=== PATIENT | male | born 1945 | race Hispanic/Latino ===

== ENCOUNTER 2017-10-04 20:34 | Inpatient (IN) | payer MEDICARE ==
[2017-10-04 22:47] LABS: Hematocrit 44.5 % (35.5-45.6); Mean Corpuscular HGB Conc 34 % (32-34); Mean Corpuscular Hemoglobin 31 pg (28-32); Mean Corpuscular Volume 93 fl (84-94); Platelet Count 291 K/mm3 (140-440); Red Blood Count 4.79 M/mm3 (3.65-5.03)
[2017-10-04 22:50] LABS: White Blood Count 22.5 K/mm3 (4.5-11.0)
[2017-10-04 23:00] LABS: Alanine Aminotransferase 19 units/L (7-56); Albumin 3.9 g/dL (3.9-5); Albumin/Globulin Ratio 1.4 %; Alkaline Phosphatase 91 units/L (35-129); Anion Gap 18 mmol/L; BUN/Creatinine Ratio 24; Blood Urea Nitrogen 19 mg/dL (9-20); Calcium 8.8 mg/dL (8.4-10.2); Carbon Dioxide 27 mmol/L (22-30); Chloride 96.7 mmol/L (98-107); Glucose 119 mg/dL (75-100); Lipase 46 units/L (13-60); Potassium 4.8 mmol/L (3.6-5.0); Sodium 137 mmol/L (137-145); Total Protein 6.7 g/dL (6.3-8.2)
[2017-10-04 23:17] LABS: Basophils % (Manual) 0 % (0.0-1.8); Blastocytes % (Manual) 0 %; Eosinophils % (Manual) 0 % (0.0-4.3)
[2017-10-04 23:18] LABS: Diff Status Complete; RBC Morphology Normal
--- NOTE | 2017-10-04 23:52 | XRay Report ---
FINAL REPORT PROCEDURE: Abdomen. TECHNIQUE: Portable AP supine view. HISTORY: Vomiting. COMPARISON: No prior studies are available for comparison. FINDINGS: There is gas within a few loops of small bowel in the left side of the abdomen. These bowel loops are not significantly dilated. There is also gas within the colon and rectum. The bowel gas pattern is nonspecific. The soft tissues are unremarkable. There is a left internal ureteral stent in place. There may be some faint calcifications projected through the midportion of the left kidney. This is better seen by CT scanning. The regional skeleton appears intact. IMPRESSION: Nonspecific bowel gas pattern. Question left renal calcifications.
[2017-10-05] MEDS ORDERED: HALDOL IM ONE (00:32)
--- NOTE | 2017-10-05 01:57 | Emergency Department Report ---
HPI - General Chief Complaint: Nausea/Vomiting/Diarrhea Time Seen by Provider: 10/04/17 21:57 - HPI HPI: This is a 72-year-old male presents to the emergency department from [facility] where he is currently a 1013 and being treated for behavioral disturbances. The patient has a history of dementia, GERD, gastric ulcers and kidney stones. The note written at [facility] shows that the patient has been having issues with vomiting all day. He appears to vomit after each meal but then still continues to attempt to eat. There has been some projectile emesis seen. I am unsure what medication was given to him for his nausea but states that medications have not been successful and the treatment. He was sent in for "assessment of condition projectile vomiting." It also appears that they have concern that the patient is unable to eat that he will have some increased weakness. There is a employee of [facility] here with the patient at bedside who states that she has been dealing with this patient and that he is currently at his baseline mental status since he has been at their facility. ED Past Medical Hx - Past Medical History Previous Medical History?: Yes Hx GERD: Yes Hx Kidney Stones: Yes Hx Dementia: Yes Additional medical history: gastric ulcers, and hx of bleeding - Surgical History Past Surgical History?: No - Social History Smoking Status: Never Smoker Substance Use Type: None ED Review of Systems ROS: Stated complaint: VOMITING Other details as noted in HPI Comment: Unobtainable due to pts medical conditions Physical Exam - Physical Exam Vital Signs: Vital Signs 10/04/17 21:56 Temperature 97.9 F Pulse Rate 95 H Respiratory 14 Rate Blood Pressure 132/55 O2 Sat by Pulse 98 Oximetry Physical Exam: GENERAL: The patient is well-developed well-nourished. HENT: Normocephalic. Atraumatic. Patient has moist mucous membranes. EYES: Extraocular motions are intact. Pupils equal reactive to light bilaterally. NECK: Supple. Trachea is midline. CHEST/LUNGS: Clear to auscultation. There is no respiratory distress noted. HEART/CARDIOVASCULAR: Regular. There is no tachycardia. There is no gallop rub or murmur. ABDOMEN: Abdomen is soft, nontender. Patient has normal bowel sounds. There is no abdominal distention. SKIN: Skin is warm and dry. NEURO: The patient is AAO 0. Sometimes he is sleeping but easily arousable, and other times he appears agitated and nonsensical. He has not easily redirectable or following any commands. MUSCULOSKELETAL: There is no tenderness or deformity. There is no evidence of acute injury. ED Course Vital Signs 10/04/17 21:56 Temperature 97.9 F Pulse Rate 95 H Respiratory 14 Rate Blood Pressure 132/55 O2 Sat by Pulse 98 Oximetry ED Medical Decision Making - Lab Data Result diagrams: 10/04/17 22:06 10/04/17 22:06 - Radiology Data Radiology results: report reviewed, image reviewed interpreted by me: Abdominal x-ray shows nonspecific nonobstructive bowel gas. Chest x-ray does not show any acute process. There are no pleural effusions, obvious pneumonia and there is no pneumothorax. PROCEDURE: CT CHEST W CON TECHNIQUE: Computerized axial tomography of the chest was performed during the IV injection of iodinated nonionic contrast. HISTORY: cough COMPARISON: No prior studies are available for comparison. TECHNICAL QUALITY: Satisfactory. FINDINGS: Heart and pericardium: Normal. Thoracic aorta: Thoracic aorta is normal in caliber. There is no aneurysm or dissection.. Pulmonary vasculature: Normal. Lymph nodes: No enlarged thoracic lymph nodes. Lungs: There are fibrotic changes versus pulmonary edema at the lung bases. There is no airspace consolidation.. Pleural space: There is no pleural effusion or pneumothorax.. Musculoskeletal structures: No significant abnormality. Upper abdominal structures: No significant abnormality. IMPRESSION: The heart size is normal. Thoracic aorta is normal in caliber. There is no aneurysm or dissection.. There are fibrotic changes versus pulmonary edema at the lung bases. There is no airspace consolidation.. There is no pleural effusion or pneumothorax.. Transcribed By: CO Dictated By: STEVE HARTMANN MD Electronically Authenticated By: STEVE HARTMANN MD Signed Date/Time: 10/04/17 0951 PROCEDURE: CT ABDOMEN PELVIS W CON TECHNIQUE: Computerized axial tomography of the abdomen and pelvis was performed after the IV injection of iodinated nonionic contrast. HISTORY: N/V COMPARISON: No prior studies are available for comparison. FINDINGS: Visualized lower thorax: No significant abnormality. Liver: There is mild fatty infiltration of the liver. There is no mass.. Spleen: Normal size and attenuation. Gallbladder and biliary system: There are gallstones. There is no specific evidence of cholecystitis or biliary ductal dilatation.. Pancreas: Normal. Adrenals: Normal. Kidneys: There is a left ureteral stent. There is no hydronephrosis or hydroureter. There are small cysts in the right kidney. There are no kidney stones visible. GI tract: There is moderate stool in the colon. There is diverticulosis but no diverticulitis. There is no colitis, obstruction or mass. The stomach and small bowel are unremarkable. The appendix is not seen.. Lymph nodes and mesentery: Normal. Vasculature: There is calcified plaque in the abdominal aorta.. Bladder: Normal. Reproductive organs: Normal. Peritoneum: There is no ascites, free air, abscess or adenopathy. Musculoskeletal structures: No significant abnormality. Other: None. IMPRESSION: There is mild fatty infiltration of the liver. There is no mass.. There are gallstones. There is no specific evidence of cholecystitis or biliary ductal dilatation.. There is a left ureteral stent. There is no hydronephrosis or hydroureter. There are small cysts in the right kidney. There are no kidney stones visible. There is moderate stool in the colon. There is diverticulosis but no diverticulitis. There is no colitis, obstruction or mass. The stomach and small bowel are unremarkable. The appendix is not seen.. There is no ascites, free air, abscess or adenopathy. Transcribed By: CO Dictated By: STEVE HARTMANN MD Electronically Authenticated By: STEVE HARTMANN MD Signed Date/Time: 10/04/172229 - Medical Decision Making This patient was brought in because of some projectile vomiting he was having at [place]. He has not had any vomiting while in the emergency department. However as part of his workup he was found to have a 22,000 leukocytosis. There was both a CT and x-ray of the chest and abdomen done that did not end up showing any source of infection. His urinalysis shows 20+ white blood cells in the urine which may be the cause but overall is a mild urinary tract infection. He was treated empirically with Zosyn and admitted to the hospital and accepted by Dr. Chaudhary. Critical Care Time: No Critical care attestation.: If time is entered above; I have spent that time in minutes in the direct care of this critically ill patient, excluding procedure time. ED Disposition Clinical Impression: Leukocytosis Qualifiers: Leukocytosis type: unspecified Qualified Code(s): D72.829 - Elevated white blood cell count, unspecified Sepsis Qualifiers: Sepsis type: sepsis due to unspecified organism Qualified Code(s): A41.9 - Sepsis, unspecified organism UTI (urinary tract infection) Qualifiers: Urinary tract infection type: acute cystitis Hematuria presence: without hematuria Qualified Code(s): N30.00 - Acute cystitis without hematuria Disposition: OP ADMIT IP TO THIS HOSP Is pt being admited?: Yes Condition: Fair
--- NOTE | 2017-10-05 02:27 | Cat Scan Report ---
FINAL REPORT PROCEDURE: CT CHEST W CON TECHNIQUE: Computerized axial tomography of the chest was performed during the IV injection of iodinated nonionic contrast. HISTORY: cough COMPARISON: No prior studies are available for comparison. TECHNICAL QUALITY: Satisfactory. FINDINGS: Heart and pericardium: Normal. Thoracic aorta: Thoracic aorta is normal in caliber. There is no aneurysm or dissection.. Pulmonary vasculature: Normal. Lymph nodes: No enlarged thoracic lymph nodes. Lungs: There are fibrotic changes versus pulmonary edema at the lung bases. There is no airspace consolidation.. Pleural space: There is no pleural effusion or pneumothorax.. Musculoskeletal structures: No significant abnormality. Upper abdominal structures: No significant abnormality. IMPRESSION: The heart size is normal. Thoracic aorta is normal in caliber. There is no aneurysm or dissection.. There are fibrotic changes versus pulmonary edema at the lung bases. There is no airspace consolidation.. There is no pleural effusion or pneumothorax..
[2017-10-05] MEDS ORDERED: ZOSYN/NS 4.5GM/100ML 4.5 GM/100 ML VIAL IV ONE (02:30)
--- NOTE | 2017-10-05 02:33 | Cat Scan Report ---
FINAL REPORT PROCEDURE: CT ABDOMEN PELVIS W CON TECHNIQUE: Computerized axial tomography of the abdomen and pelvis was performed after the IV injection of iodinated nonionic contrast. HISTORY: N/V COMPARISON: No prior studies are available for comparison. FINDINGS: Visualized lower thorax: No significant abnormality. Liver: There is mild fatty infiltration of the liver. There is no mass.. Spleen: Normal size and attenuation. Gallbladder and biliary system: There are gallstones. There is no specific evidence of cholecystitis or biliary ductal dilatation.. Pancreas: Normal. Adrenals: Normal. Kidneys: There is a left ureteral stent. There is no hydronephrosis or hydroureter. There are small cysts in the right kidney. There are no kidney stones visible. GI tract: There is moderate stool in the colon. There is diverticulosis but no diverticulitis. There is no colitis, obstruction or mass. The stomach and small bowel are unremarkable. The appendix is not seen.. Lymph nodes and mesentery: Normal. Vasculature: There is calcified plaque in the abdominal aorta.. Bladder: Normal. Reproductive organs: Normal. Peritoneum: There is no ascites, free air, abscess or adenopathy. Musculoskeletal structures: No significant abnormality. Other: None. IMPRESSION: There is mild fatty infiltration of the liver. There is no mass.. There are gallstones. There is no specific evidence of cholecystitis or biliary ductal dilatation.. There is a left ureteral stent. There is no hydronephrosis or hydroureter. There are small cysts in the right kidney. There are no kidney stones visible. There is moderate stool in the colon. There is diverticulosis but no diverticulitis. There is no colitis, obstruction or mass. The stomach and small bowel are unremarkable. The appendix is not seen.. There is no ascites, free air, abscess or adenopathy.
[2017-10-05] MEDS ORDERED: NACL 0.9% 250ML 250 ML ONE (02:53)
[2017-10-05] MEDS ORDERED: DULCOLAX PR PRN (05:13)
[2017-10-05] MEDS ORDERED: ZOFRAN IV PRN (05:13)
[2017-10-05] MEDS ORDERED: TYLENOL PO PRN (05:13)
--- NOTE | 2017-10-05 06:06 | History and Physical Report ---
History of Present Illness Date of examination: 10/05/17 Date of admission: 10/05/17 05:13 History of present illness: 72-year-old. History of dementia and GERD, gastric ulcers was sent to the emergency room from [place] because he was confused and agitated episodes of nausea vomiting. He is unable to give a history. His lab shows white count of 24, he was started on empiric Zosyn, his workup so far is negative. Review of system is unobtainable PAST MEDICAL HISTORY:dementia and GERD, gastric ulcers PAST SURGICAL HISTORY: Unknownm FAMILY HISTORY:Unknownm SOCIAL HISTORY:LONG TERM resident Medications and Allergies Allergies Allergy/AdvReac Type Severity Reaction Status Date / Time No Known Allergies Allergy Verified 10/04/17 23:17 Home Medications Medication Instructions Recorded Confirmed Last Taken Type RisperDAL 0.5 mg PO TID 10/05/17 10/05/17 10/04/17 09:00 History SEROquel 150 mg PO DAILY 10/05/17 10/05/17 10/03/17 21:00 History Zinc Oxide 1 applic TP BID 10/05/17 10/05/17 10/04/17 09:00 History Zoloft 50 mg PO QDAY 10/05/17 10/05/17 10/04/17 09:00 History Active Meds: Active Medications Acetaminophen (Tylenol) 650 mg PO Q4H PRN PRN Reason: Pain MILD(1-3)/Fever >100.5/SUTTON Bisacodyl (Dulcolax) 10 mg NE QDAY PRN PRN Reason: Constipation unrelieved by MOM Enoxaparin Sodium (Lovenox) 40 mg SUB-Q QDAY ANABELA Sodium Chloride (Nacl 0.9% 1000 Ml) 1,000 mls @ 100 mls/hr IV DIRECT ANABELA Piperacillin Sod/Tazobactam Sod (Zosyn/Ns 3.375gm/50ml) 3.375 gm in 50 mls @ 100 mls/hr IV Q8H ANABELA Ondansetron HCl (Zofran) 4 mg IV Q8H PRN PRN Reason: N/V unrelieved by Reglan Exam - Physical Exam Narrative exam: Gen. appearance: Patient lying in bed in no acute distress HEENT: Normocephalic/atraumatic, pupils equal round reactive to light, extra alkaline movement intact, no scleral icterus, no JVD or thyromegaly or nodule, neck is supple, mucous membrane moist, no erythema or exudate Heart: S1-S2, regular rate and rhythm Lungs: Clear to auscultation bilateral breathing comfortable Abdomen: Positive bowel sounds, nontender, nondistended, no organomegaly Extremities: No edema, cyanosis, clubbing Neuro:: difficult to assess Skin: No rash, nodules, warm dry - Constitutional Vitals: Temp Pulse Resp BP Pulse Ox 97.9 F 84 17 119/102 98 10/04/17 21:56 10/05/17 04:15 10/05/17 04:15 10/05/17 04:15 10/05/17 04:15 Results - Labs CBC & Chem 7: 10/14/17 06:37 10/14/17 06:37 Labs: Abnormal lab results 10/04/17 10/04/17 10/04/17 Range/Units 22:06 22:06 22:52 WBC 22.5 H (4.5-11.0) K/mm3 Reeves # 1.4 H (0.0-0.8) K/mm3 Seg Neutrophils % 89.2 H (40.0-70.0) % Seg Neuts % (Manual) 87.0 H (40.0-70.0) % Lymphocytes % (Manual) 3.0 L (13.4-35.0) % Seg Neutrophils # 18.6 H (1.8-7.7) K/mm3 Seg Neutrophils # Man 19.6 H (1.8-7.7) K/mm3 Lymphocytes # (Manual) 0.7 L (1.2-5.4) K/mm3 Monocytes # (Manual) 1.4 H (0.0-0.8) K/mm3 Chloride 96.7 L (98-107) mmol/L Glucose 119 H (75-100) mg/dL Lactic Acid 3.40 H* (0.7-2.0) mmol/L Total Bilirubin 1.70 H (0.1-1.2) mg/dL Total Creatine Kinase (55-170) units/L CK-MB (CK-2) (0.0-4.0) ng/mL 10/05/17 Range/Units 05:21 WBC (4.5-11.0) K/mm3 Reeves # (0.0-0.8) K/mm3 Seg Neutrophils % (40.0-70.0) % Seg Neuts % (Manual) (40.0-70.0) % Lymphocytes % (Manual) (13.4-35.0) % Seg Neutrophils # (1.8-7.7) K/mm3 Seg Neutrophils # Man (1.8-7.7) K/mm3 Lymphocytes # (Manual) (1.2-5.4) K/mm3 Monocytes # (Manual) (0.0-0.8) K/mm3 Chloride (98-107) mmol/L Glucose (75-100) mg/dL Lactic Acid (0.7-2.0) mmol/L Total Bilirubin (0.1-1.2) mg/dL Total Creatine Kinase 607 H (55-170) units/L CK-MB (CK-2) 7.0 H (0.0-4.0) ng/mL - Imaging and Cardiology Chest x-ray: image reviewed CT scan - abdomen: report reviewed CT scan - chest: report reviewed CT scan - pelvis: report reviewed Assessment and Plan Assessment SIRS Dementia GERD History of gastric ulcers Plan Admit medicine Start IV fluid, IV Zosyn, follow up cultures DVT prophylaxis Continue appropiate outpatient medications
[2017-10-05] MEDS ORDERED: NACL 0.9% 250ML 250 ML IV ONE (06:18)
[2017-10-05 06:32] LABS: Bilirubin,Urine NEG (Negative); Blood,Urine MOD (Negative); Ketones,Urine NEG (Negative); Leukocyte Esterase,Urine SM (Negative); Mucus,Urine FEW /HPF; Nitrite,Urine NEG (Negative); Urobilinogen,Urine < 2.0 mg/dL (<2.0)
--- NOTE | 2017-10-05 09:16 | XRay Report ---
AP CHEST: HISTORY: Cough AP view of the chest demonstrates a normal mediastinal and cardiac contour with clear lungs and normal bony and soft tissue structures. IMPRESSION: No acute cardiopulmonary process identified.
[2017-10-05] MEDS: LOVENOX SUB-Q SCH (10:07)
[2017-10-05] MEDS: NACL 0.9% 1000 ML 1,000 ML IV SCH (10:14)
[2017-10-05] MEDS: ZOSYN/NS 3.375GM/50ML 3.375 GM/50 ML BAG IV SCH ×2 (11:42→19:25)
[2017-10-05 15:41] LABS: Creatine Kinase MB 3.1 ng/mL (0.0-4.0)
[2017-10-06] MEDS: ZOSYN/NS 3.375GM/50ML 3.375 GM/50 ML BAG IV SCH ×3 (03:00→18:23)
[2017-10-06] MEDS: NACL 0.9% 1000 ML 1,000 ML IV SCH ×2 (04:02→18:27)
[2017-10-06 05:04] LABS: Anion Gap 17 mmol/L; BUN/Creatinine Ratio 22; Blood Urea Nitrogen 20 mg/dL (9-20); Calcium 8.2 mg/dL (8.4-10.2); Carbon Dioxide 24 mmol/L (22-30); Chloride 99.2 mmol/L (98-107); Glucose 101 mg/dL (75-100); Potassium 4.3 mmol/L (3.6-5.0); Sodium 136 mmol/L (137-145)
[2017-10-06 05:05] LABS: Basophils % (Auto) 0.3 % (0.0-1.8); Eosinophils % (Auto) 0.2 % (0.0-4.3); Hematocrit 51.9 % (35.5-45.6); Hemoglobin 17.4 gm/dl (11.8-15.2); Mean Corpuscular HGB Conc 34 % (32-34); Mean Corpuscular Hemoglobin 32 pg (28-32); Mean Corpuscular Volume 95 fl (84-94); Platelet Count 184 K/mm3 (140-440); Red Blood Count 5.49 M/mm3 (3.65-5.03); Red Cell Distribution Width 14.1 % (13.2-15.2); White Blood Count 13.3 K/mm3 (4.5-11.0)
[2017-10-06] MEDS: RisperDAL PO SCH ×3 (08:50→19:31)
[2017-10-06] MEDS: LOVENOX SUB-Q SCH ×2 (09:17→10:22)
[2017-10-06] MEDS: ZOLOFT PO SCH (09:18)
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
[2017-10-06] MEDS ORDERED: HALDOL IM PRN (14:20)
[2017-10-06] MEDS ORDERED: ATIVAN IV PRN (14:20)
[2017-10-06] MEDS ORDERED: PROTONIX IV SCH (18:00)
--- NOTE | 2017-10-06 18:15 | Gastroenterology Consultation ---
History of Present Illness - Reason for Consult Consult date: 10/06/17 Vomiting Requesting physician: PAULINE HOLM - History of Present Illness The patient is a 72 yo male transferred from [place] for emesis. He provides little history (rambling, can follow commands, does not understand some words like "endoscopy.") It is unclear based on the history in the chart if it was truly emesis or spitting of pills and food at others (has been having behavioral aggression problems). On the floor, he has been on a clear liquid diet without symtoms. A KUB and CT were unremarkable except for gallstones ( without cholecystitis) and constipation (?due to psych meds; no BM yet in the unit, but has been urinating). He denies abdominal pain, but thinks he has a hx of ulcers; his hct is normal and there is no reported hematemesis or melena. He has had stable vital signs, and has been alert and interactive with staff. Past History Past Medical History: other (Psychiatric illness NOS, gallstones, kidney stones , gastric ulcers) Past Surgical History: Other (Ureteral stent) Social history: smoking Family history: no significant family history Medications and Allergies Allergies Allergy/AdvReac Type Severity Reaction Status Date / Time No Known Allergies Allergy Verified 10/04/17 23:17 Home Medications Medication Instructions Recorded Confirmed Last Taken Type RisperDAL 0.5 mg PO TID 10/05/17 10/05/17 10/04/17 09:00 History SEROquel 150 mg PO DAILY 10/05/17 10/05/17 10/03/17 21:00 History Zinc Oxide 1 applic TP BID 10/05/17 10/05/17 10/04/17 09:00 History Zoloft 50 mg PO QDAY 10/05/17 10/05/17 10/04/17 09:00 History Active Meds: Active Medications Acetaminophen (Tylenol) 650 mg PO Q4H PRN PRN Reason: Pain MILD(1-3)/Fever >100.5/[place] Bisacodyl (Dulcolax) [address] QDAY PRN PRN Reason: Constipation unrelieved by MOM Enoxaparin Sodium (Lovenox) 40 mg SUB-Q QDAY [facility] Last Admin: 10/06/17 10:22 Dose: Not Given Haloperidol Lactate (Haldol) 5 mg IM Q6H PRN PRN Reason: Agitation Sodium Chloride (Nacl 0.9% 1000 Ml) 1,000 mls @ 100 mls/hr IV DIRECT [facility] Last Admin: 10/06/17 04:02 Dose: 100 mls/hr Piperacillin Sod/Tazobactam Sod (Zosyn/Ns 3.375gm/50ml) 3.375 gm in 50 mls @ 100 mls/hr IV Q8H [facility] Last Admin: 10/06/17 10:16 Dose: 100 mls/hr Lorazepam (Ativan) 1 mg IV Q4H PRN PRN Reason: Agitation Ondansetron HCl (Zofran) 4 mg IV Q8H PRN PRN Reason: N/V unrelieved by Reglan Pantoprazole Sodium (Protonix) 40 mg PO QDAY [facility] Quetiapine Fumarate (Seroquel) 100 mg PO DAILY [facility] Last Admin: 10/06/17 09:18 Dose: 100 mg Quetiapine Fumarate (Seroquel) 50 mg PO QDAY [facility] Last Admin: 10/06/17 09:18 Dose: 50 mg Risperidone (Risperdal) 0.5 mg PO TID [facility] Last Admin: 10/06/17 13:46 Dose: 0.5 mg Senna/Docusate Sodium (Senokot S) 2 tab PO QHS [facility] Sertraline HCl (Zoloft) 50 mg PO QDAY [facility] Last Admin: 10/06/17 09:18 Dose: 50 mg Review of Systems - Review of Systems ROS unobtainable: due to mental status Exam - Constitutional Vital Signs: Temp Pulse Resp BP Pulse Ox 98.5 F 88 20 102/68 98 10/06/17 16:00 10/06/17 16:00 10/06/17 16:00 10/06/17 16:00 10/06/17 16:00 General appearance: no acute distress, disheveled - EENT Eyes: PERRL, EOM intact ENT: hearing intact, poor dentition, no thrush - Neck Neck: supple, normal ROM - Respiratory Respiratory effort: normal Respiratory: bilateral: CTA - Cardiovascular Rhythm: regular Heart Sounds: Present: S1 & S2 Extremities: no ischemia, No edema - Gastrointestinal General gastrointestinal: Present: soft, non-tender, non-distended - Integumentary Integumentary: Present: clear, warm, dry - Neurologic Neurological: oriented to person - Psychiatric Psychiatric: no intact judgment & insight - Labs CBC & Chem 7: 10/06/17 03:38 10/06/17 03:38 Lab Results: Laboratory Results - last 24 hr 10/06/17 10/06/17 03:38 03:38 WBC 13.3 H RBC 5.49 H Hgb 17.4 H Hct 51.9 H D MCV 95 H MCH 32 MCHC 34 RDW 14.1 Plt Count 184 Lymph % (Auto) 14.5 [place] % (Auto) 9.3 H Eos % (Auto) 0.2 Baso % (Auto) 0.3 Lymph # 1.9 [place] # 1.2 H Eos # 0.0 Baso # 0.0 Seg Neutrophils % 75.7 H Seg Neutrophils # 10.0 H Sodium 136 L Potassium 4.3 Chloride 99.2 Carbon Dioxide 24 Anion Gap 17 BUN 20 Creatinine 0.9 Estimated GFR > 60 BUN/Creatinine Ratio 22 Glucose 101 H Calcium 8.2 L Assessment and Plan - Patient Problems (1) Vomiting Current Visit: Yes Status: Acute Plan to address problem: - No gastric distention of duodenal inflammation to suggest gastric outlet obstruction on CT; currently tolerating liquids here. - Will continue protonix, and treat underlying constipation with Senna (? triggered by psych meds). - If vomiting recurs, or if blood loss/anemia, will perform EGD +/- colonoscopy. (2) Gallstones Current Visit: Yes Status: Acute Plan to address problem: - No RUQ pain on exam, and tolerating clears all day. In addition, no cholecystitis on CT scan. - If vomiting recurs with regular diet, will order HIDA scan.
[2017-10-06] MEDS: SENOKOT S PO SCH (23:26)
[2017-10-07] MEDS: ZOSYN/NS 3.375GM/50ML 3.375 GM/50 ML BAG IV SCH ×3 (04:46→18:47)
[2017-10-07] MEDS: LOVENOX SUB-Q SCH ×2 (10:35→10:39)
[2017-10-07] MEDS: NACL 0.9% 1000 ML 1,000 ML IV SCH ×2 (10:38→21:50)
[2017-10-07] MEDS: ZOLOFT PO SCH (10:39)
[2017-10-07] MEDS: PROTONIX PO SCH (10:39)
[2017-10-07] MEDS: RisperDAL PO SCH ×3 (10:46→20:05)
--- NOTE | 2017-10-07 15:26 | Consultation ---
History of Present Illness - Reason for Consult Consult date: 10/07/17 Reason for consult: Mental Health Evaluation Requesting physician: PAULINE HOLM - Chief Complaint Chief complaint: "Patient mumbling" - History of Present Psychiatric Illness 72-year-old white male with a hx of dementia, GERD, gastric ulcers was sent to the emergency room from [facility] because he was confused and agitated episodes of N/V. Today patient is calm, but confused during the assessment. An attempted was made to assess patient, but unsuccessful. Patient cannot answers any questions at this time. Per his RN, she stated that the patient ate his breakfast this morning and took his medications with no vomiting episodes. Patient was not in restraints upon my arrival to his room. No gestures of SI/HI' s. No indications of side effects of his medications. Medications and Allergies Allergies Allergy/AdvReac Type Severity Reaction Status Date / Time No Known Allergies Allergy Verified 10/04/17 23:17 Home Medications Medication Instructions Recorded Confirmed Last Taken Type RisperDAL 0.5 mg PO TID 10/05/17 10/05/17 10/04/17 09:00 History SEROquel 150 mg PO DAILY 10/05/17 10/05/17 10/03/17 21:00 History Zinc Oxide 1 applic TP BID 10/05/17 10/05/17 10/04/17 09:00 History Zoloft 50 mg PO QDAY 10/05/17 10/05/17 10/04/17 09:00 History Active Meds: Active Medications Acetaminophen (Tylenol) 650 mg PO Q4H PRN PRN Reason: Pain MILD(1-3)/Fever >100.5/[place] Bisacodyl (Dulcolax) 10 mg UT QDAY PRN PRN Reason: Constipation unrelieved by MOM Enoxaparin Sodium (Lovenox) 40 mg SUB-Q QDAY [facility] Last Admin: 10/07/17 10:39 Dose: 40 mg Haloperidol Lactate (Haldol) 5 mg IM Q6H PRN PRN Reason: Agitation Sodium Chloride (Nacl 0.9% 1000 Ml) 1,000 mls @ 100 mls/hr IV DIRECT [facility] Last Admin: 10/07/17 10:38 Dose: 100 mls/hr Piperacillin Sod/Tazobactam Sod (Zosyn/Ns 3.375gm/50ml) 3.375 gm in 50 mls @ 100 mls/hr IV Q8H [facility] Last Admin: 10/07/17 10:46 Dose: 100 mls/hr Lorazepam (Ativan) 1 mg IV Q4H PRN PRN Reason: Agitation Last Admin: 10/06/17 19:35 Dose: 1 mg Ondansetron HCl (Zofran) 4 mg IV Q8H PRN PRN Reason: N/V unrelieved by Reglan Pantoprazole Sodium (Protonix) 40 mg PO QDAY [facility] Last Admin: 10/07/17 10:39 Dose: 40 mg Quetiapine Fumarate (Seroquel) 100 mg PO DAILY [facility] Last Admin: 10/07/17 10:39 Dose: 100 mg Quetiapine Fumarate (Seroquel) 50 mg PO QDAY [facility] Last Admin: 10/07/17 10:39 Dose: 50 mg Risperidone (Risperdal) 0.5 mg PO TID [facility] Last Admin: 10/07/17 10:46 Dose: 0.5 mg Senna/Docusate Sodium (Senokot S) 2 tab PO QHS [facility] Last Admin: 10/06/17 23:26 Dose: 2 tab Sertraline HCl (Zoloft) 50 mg PO QDAY [facility] Last Admin: 10/07/17 10:39 Dose: 50 mg Past psychiatric history - Past Medical History Past Medical History: GERD (Per ER the note), other (Per the ER note: Dementia and Kidney Stones) Past Surgical History: Other (Unable to obtain) - past Psychiatric treatment and history psychiatric treatment history: Unable to obtain a psy and fam psy hx. - Social History Social history: other (Unable to obtain) Mental Status Exam - Vital signs Last Vital Signs Temp 97.5 F L 10/07/17 07:25 Pulse 88 10/06/17 16:00 Resp 18 10/07/17 07:25 BP 102/66 10/07/17 07:25 Pulse Ox 98 10/06/17 16:00 - Exam Narrative exam: Unable to perform MSE because of patient's condition. Results Result Diagrams: 10/06/17 03:38 10/06/17 03:38 All other labs normal. Assessment and Plan Assessment and plan: Impression: Dementia with behavioral disturbances. Today patient is calm, but confused during the assessment. Patient not in restraints. Recommendation/Plan: Continue current medication regimen that was started at [facility] (Seroquel, Risperdal, and Zoloft) prior to his admission to [facility]. Will assess patient daily. Recommend the following below: 1. Frequently reorient patient and involve him/her in their care (simple explanations of procedures, tests, medications). 2. Lights on and shades open during daytime hours. 3. Try to avoid unnecessary interruptions to sleep during nighttime hours. 4. Obtain glasses, hearing aids from home if patient uses these at baseline. 5. Avoid medications that may exacerbate delirium (especially narcotics, benzodiazepines, barbiturates, ambien, lunesta, and medications with excessive anticholinergic properties). 6. Recommend Haldol 2 mg IM Q6hrs PRN for acute agitation. 7. Recommend 1:1 sitter for safety.
--- NOTE | 2017-10-07 19:38 | Gastroenterology Progress Note ---
Assessment and Plan - Patient Problems (1) Vomiting Current Visit: Yes Status: Acute Plan to address problem: - No gastric distention of duodenal inflammation to suggest gastric outlet obstruction on CT; currently tolerating liquids and solids here. - Will continue protonix, and treat underlying constipation with Senna (? triggered by psych meds). - I suspect vomiting was actually volitional behavior at [place]; will sign off; please call if recurrent symptoms. (2) Gallstones Current Visit: Yes Status: Acute Plan to address problem: - No RUQ pain on exam, and tolerating clears all day. In addition, no cholecystitis on CT scan. - If vomiting recurs with regular diet, will order HIDA scan. Subjective Date of service: 10/07/17 Principal diagnosis: Vomiting Interval history: The patient has tolerated a liquid and solid diet without N/V/abdominal pain. Continue to have severe psychiatric disturbance (see Psych/RN notes). Objective - Constitutional Vitals: Temp Pulse Resp BP Pulse Ox 98.2 F 73 18 106/53 98 10/07/17 15:22 10/07/17 15:22 10/07/17 15:22 10/07/17 15:22 10/07/17 15:22 General appearance: no acute distress, disheveled - EENT Eyes: PERRL, EOM intact - Respiratory Respiratory effort: normal Respiratory: bilateral: CTA - Cardiovascular Rhythm: regular Heart Sounds: Present: S1 & S2 - Gastrointestinal General gastrointestinal: Present: soft, non-tender, non-distended - Neurologic Neurological: oriented to person - Psychiatric Psychiatric: no intact judgment & insight, agitated - Labs CBC & Chem 7: 10/06/17 03:38 10/06/17 03:38 Labs: Laboratory Results - last 24 hr 10/07/17 07:27 POC Glucose 71
[2017-10-07] MEDS: SENOKOT S PO SCH (21:47)
[2017-10-08] MEDS: ZOSYN/NS 3.375GM/50ML 3.375 GM/50 ML BAG IV SCH ×3 (01:58→18:47)
[2017-10-08] MEDS: LOVENOX SUB-Q SCH (10:09)
[2017-10-08] MEDS: PROTONIX PO SCH (10:10)
[2017-10-08] MEDS: ZOLOFT PO SCH (10:10)
[2017-10-08] MEDS: RisperDAL PO SCH ×3 (10:10→23:31)
--- NOTE | 2017-10-08 11:54 | Progress Note ---
Subjective - Reason for Consult Consult date: 10/08/17 Reason for consult: Psychiatry Follow-up - Chief Complaint Chief complaint: "Patient mumbling" 72-year-old white male with a hx of dementia, GERD, gastric ulcers was sent to the emergency room from [place] because he was confused and agitated episodes of N/V. Today patient is calm, but confused during the assessment. Upon my arrival to his room, he was eating his breakfast. Per his assigned RN, the patient was agitated overnight. No gestures of SI/HI's. Mental Status Exam - Vital signs Last Vital Signs Temp 97.6 F 10/08/17 08:04 Pulse 77 10/07/17 19:30 Resp 18 10/08/17 08:04 BP 110/71 10/08/17 08:04 Pulse Ox 94 10/07/17 19:30 - Exam Narrative exam: MSE: Appearance: calm Behavior: poor eye contact Speech: mumbles Mood: unable to assess Affect: flat Thought Process: unable to assess Thought Content: no gestures of SI/HI's and AVH's Motor Activity: sitting up in bed Cognition: confused Insight: limited Judgment: limited Assessment and Plan Impression: Dementia with behavioral disturbances. Today patient is calm, but confused during the assessment. Patient not in restraints. Recommendation/Plan: Modify Seroquel to 150 mg PO HS (start 10/09) and continue current medication regimen (Zoloft and Risperdal) that was started at [place] prior to his admission to [facility]. Remeron 15 mg PO HS once for sleep consolidation. Will assess patient daily. Recommend the following below: 1. Frequently reorient patient and involve him/her in their care (simple explanations of procedures, tests, medications). 2. Lights on and shades open during daytime hours. 3. Try to avoid unnecessary interruptions to sleep during nighttime hours. 4. Obtain glasses, hearing aids from home if patient uses these at baseline. 5. Avoid medications that may exacerbate delirium (especially narcotics, benzodiazepines, barbiturates, ambien, lunesta, and medications with excessive anticholinergic properties). 6. Recommend Haldol 2 mg IM Q6hrs PRN for acute agitation. 7. Recommend 1:1 sitter for safety.
--- NOTE | 2017-10-08 15:54 | Progress Note ---
Assessment and Plan Assessment and plan: 72-year-old with history of dementia. Patient was at the [facility] where he was having behavioral issues. He was noted to be aggressive. Wandering into other patient's rooms. Being aggressive with staff members. Refusing to take his medications. Therefore he was sent to [place] inpatient psychiatric unit. Unfortunately while he was there he was more agitated, refusing his medications, he was noted to have projectile vomiting, nonstop vomiting. He was therefore brought to the hospital ER. Past medical history includes dementia, GERD, peptic ulcer disease, kidney stones SIRS UTI and sepsis ruled out blood and urine cx neg, dc abx Dementia with behavioral disturbance optimize behavioral meds case dw mental health Projectile vomiting/refusal to swallow has now resolved, tolerating PO, Case dw GI, no further workup indicated GERD/history of peptic ulcer disease PPI Dispo: needs placement, will have to have Level 2 due to psych hx History Interval history: Patient is unable to give any history. History taken from the chart Per his RN, he was agitated and combative last night, tried to hit and bite staff members Hospitalist Physical - Physical exam Narrative exam: General.: Disheveled HEENT: Moist mucous membranes, extraocular muscles intact, no lymphadenopathy Neck: supple Cardiac: S1-S2 heard Lungs: clear to auscultation bilaterally Abdomen: soft , nontender, nondistended, bowel sounds positive Extremities: no edema clubbing or cyanosis Skin: no rash or lesions Neurologic: Moves all extremities Psych: Patient is clearly confused, and to be hallucinating and he seems to be having visual hallucinations and is trying to touch something in the area where his hands and feet. He is disorganized, mumbling incoherently, unable to answer any questions properly - Constitutional Vitals: Temp Pulse Resp BP Pulse Ox 97.7 F 83 20 123/73 100 10/08/17 15:33 10/08/17 15:33 10/08/17 15:33 10/08/17 15:33 10/08/17 15:33 Results - Labs CBC & Chem 7: 10/06/17 03:38 10/06/17 03:38 Labs: Laboratory Last Values WBC 13.3 K/mm3 (4.5-11.0) H 10/06/17 03:38 RBC 5.49 M/mm3 (3.65-5.03) H 10/06/17 03:38 Hgb 17.4 gm/dl (11.8-15.2) H 10/06/17 03:38 Hct 51.9 % (35.5-45.6) H D 10/06/17 03:38 MCV 95 fl (84-94) H 10/06/17 03:38 MCH 32 pg (28-32) 10/06/17 03:38 MCHC 34 % (32-34) 10/06/17 03:38 RDW 14.1 % (13.2-15.2) 10/06/17 03:38 Plt Count 184 K/mm3 (140-440) 10/06/17 03:38 Lymph % (Auto) 14.5 % (13.4-35.0) 10/06/17 03:38 [place] % (Auto) 9.3 % (0.0-7.3) H 10/06/17 03:38 Eos % (Auto) 0.2 % (0.0-4.3) 10/06/17 03:38 Baso % (Auto) 0.3 % (0.0-1.8) 10/06/17 03:38 Lymph # 1.9 K/mm3 (1.2-5.4) 10/06/17 03:38 [place] # 1.2 K/mm3 (0.0-0.8) H 10/06/17 03:38 Eos # 0.0 K/mm3 (0.0-0.4) 10/06/17 03:38 Baso # 0.0 K/mm3 (0.0-0.1) 10/06/17 03:38 Add Manual Diff Complete 10/04/17 22:06 Total Counted 100 10/04/17 22:06 Seg Neutrophils % 75.7 % (40.0-70.0) H 10/06/17 03:38 Seg Neuts % (Manual) 87.0 % (40.0-70.0) H 10/04/17 22:06 Band Neutrophils % 4.0 % 10/04/17 22:06 Lymphocytes % (Manual) 3.0 % (13.4-35.0) L 10/04/17 22:06 Reactive Lymphs % (Man) 0 % 10/04/17 22:06 Monocytes % (Manual) 6.0 % (0.0-7.3) 10/04/17 22:06 Eosinophils % (Manual) 0 % (0.0-4.3) 10/04/17 22:06 Basophils % (Manual) 0 % (0.0-1.8) 10/04/17 22:06 Metamyelocytes % 0 % 10/04/17 22:06 Myelocytes % 0 % 10/04/17 22:06 Promyelocytes % 0 % 10/04/17 22:06 Blast Cells % 0 % 10/04/17 22:06 Nucleated RBC % Not Reportable 10/04/17 22:06 Seg Neutrophils # 10.0 K/mm3 (1.8-7.7) H 10/06/17 03:38 Seg Neutrophils # Man 19.6 K/mm3 (1.8-7.7) H 10/04/17 22:06 Band Neutrophils # 0.9 K/mm3 10/04/17 22:06 Lymphocytes # (Manual) 0.7 K/mm3 (1.2-5.4) L 10/04/17 22:06 Abs React Lymphs (Man) 0.0 K/mm3 10/04/17 22:06 Monocytes # (Manual) 1.4 K/mm3 (0.0-0.8) H 10/04/17 22:06 Eosinophils # (Manual) 0.0 K/mm3 (0.0-0.4) 10/04/17 22:06 Basophils # (Manual) 0.0 K/mm3 (0.0-0.1) 10/04/17 22:06 Metamyelocytes # 0.0 K/mm3 10/04/17 22:06 Myelocytes # 0.0 K/mm3 10/04/17 22:06 Promyelocytes # 0.0 K/mm3 10/04/17 22:06 Blast Cells # 0.0 K/mm3 10/04/17 22:06 WBC Morphology Not Reportable 10/04/17 22:06 Hypersegmented Neuts Not Reportable 10/04/17 22:06 Hyposegmented Neuts Not Reportable 10/04/17 22:06 Hypogranular Neuts Not Reportable 10/04/17 22:06 Smudge Cells Not Reportable 10/04/17 22:06 Toxic Granulation Not Reportable 10/04/17 22:06 Toxic Vacuolation Not Reportable 10/04/17 22:06 Dohle Bodies Not Reportable 10/04/17 22:06 Pelger-Huet Anomaly Not Reportable 10/04/17 22:06 Javier Rods Not Reportable 10/04/17 22:06 Platelet Estimate Appears normal 10/04/17 22:06 Clumped Platelets Not Reportable 10/04/17 22:06 Plt Clumps, EDTA Not Reportable 10/04/17 22:06 Large Platelets Not Reportable 10/04/17 22:06 Giant Platelets Not Reportable 10/04/17 22:06 Platelet Satelliting Not Reportable 10/04/17 22:06 Plt Morphology Comment Not Reportable 10/04/17 22:06 RBC Morphology Normal 10/04/17 22:06 Dimorphic RBCs Not Reportable 10/04/17 22:06 Polychromasia Not Reportable 10/04/17 22:06 Hypochromasia Not Reportable 10/04/17 22:06 Poikilocytosis Not Reportable 10/04/17 22:06 Anisocytosis Not Reportable 10/04/17 22:06 Microcytosis Not Reportable 10/04/17 22:06 Macrocytosis Not Reportable 10/04/17 22:06 Spherocytes Not Reportable 10/04/17 22:06 Pappenheimer Bodies Not Reportable 10/04/17 22:06 Sickle Cells Not Reportable 10/04/17 22:06 Target Cells Not Reportable 10/04/17 22:06 Tear Drop Cells Not Reportable 10/04/17 22:06 Ovalocytes Not Reportable 10/04/17 22:06 Helmet Cells Not Reportable 10/04/17 22:06 [place] Bodies Not Reportable 10/04/17 22:06 [place] Not Reportable 10/04/17 22:06 [place] Cells Not Reportable 10/04/17 22:06 Bite Cells Not Reportable 10/04/17 22:06 Crenated Cell Not Reportable 10/04/17 22:06 Elliptocytes Not Reportable 10/04/17 22:06 Acanthocytes (Spur) Not Reportable 10/04/17 22:06 Rouleaux Not Reportable 10/04/17 22:06 Hemoglobin C Crystals Not Reportable 10/04/17 22:06 Schistocytes Not Reportable 10/04/17 22:06 Malaria parasites Not Reportable 10/04/17 22:06 Donis Bodies Not Reportable 10/04/17 22:06 Hem Pathologist Commnt No 10/04/17 22:06 Sodium 136 mmol/L (137-145) L 10/06/17 03:38 Potassium 4.3 mmol/L (3.6-5.0) 10/06/17 03:38 Chloride 99.2 mmol/L (98-107) 10/06/17 03:38 Carbon Dioxide 24 mmol/L (22-30) 10/06/17 03:38 Anion Gap 17 mmol/L 10/06/17 03:38 BUN 20 mg/dL (9-20) 10/06/17 03:38 Creatinine 0.9 mg/dL (0.8-1.5) 10/06/17 03:38 Estimated GFR > 60 ml/min 10/06/17 03:38 BUN/Creatinine Ratio 22 % 10/06/17 03:38 Glucose 101 mg/dL (75-100) H 10/06/17 03:38 POC Glucose 71 (70-105) 10/07/17 07:27 Lactic Acid 3.40 mmol/L (0.7-2.0) H* 10/04/17 22:52 Calcium 8.2 mg/dL (8.4-10.2) L 10/06/17 03:38 Total Bilirubin 1.70 mg/dL (0.1-1.2) H 10/04/17 22:06 AST 19 units/L (5-40) 10/04/17 22:06 ALT 19 units/L (7-56) 10/04/17 22:06 Alkaline Phosphatase 91 units/L (35-129) 10/04/17 22:06 Total Creatine Kinase 503 units/L (55-170) H 10/05/17 15:01 CK-MB (CK-2) 3.1 ng/mL (0.0-4.0) 10/05/17 15:01 CK-MB (CK-2) Rel Index 0.6 (0-4) 10/05/17 15:01 Troponin T 0.018 ng/mL (0.00-0.029) 10/05/17 15:01 Total Protein 6.7 g/dL (6.3-8.2) 10/04/17 22:06 Albumin 3.9 g/dL (3.9-5) 10/04/17 22:06 Albumin/Globulin Ratio 1.4 % 10/04/17 22:06 Lipase 46 units/L (13-60) 10/04/17 22:06 Urine Color Yellow (Yellow) 10/05/17 Unknown Urine Turbidity Clear (Clear) 10/05/17 Unknown Urine pH 8.0 (5.0-7.0) H 10/05/17 Unknown Ur Specific [place] 1.038 (1.003-1.030) H 10/05/17 Unknown Urine Protein 30 mg/dl mg/dL (Negative) 10/05/17 Unknown Urine Glucose (UA) Neg mg/dL (Negative) 10/05/17 Unknown Urine Ketones Neg mg/dL (Negative) 10/05/17 Unknown Urine Blood Mod (Negative) 10/05/17 Unknown Urine Nitrite Neg (Negative) 10/05/17 Unknown Urine Bilirubin Neg (Negative) 10/05/17 Unknown Urine Urobilinogen < 2.0 mg/dL (<2.0) 10/05/17 Unknown Ur Leukocyte Esterase Sm (Negative) 10/05/17 Unknown Urine WBC (Auto) 26.0 /HPF (0.0-6.0) H 10/05/17 Unknown Urine RBC (Auto) 120.0 /HPF (0.0-6.0) 10/05/17 Unknown Urine Mucus Few /HPF 10/05/17 Unknown
[2017-10-08] MEDS ORDERED: REMERON PO ONE ×2 (21:00→23:45)
[2017-10-08] MEDS: SENOKOT S PO SCH (23:31)
[2017-10-09] MEDS: ZOSYN/NS 3.375GM/50ML 3.375 GM/50 ML BAG IV SCH ×3 (02:55→18:44)
[2017-10-09] MEDS: NACL 0.9% 1000 ML 1,000 ML IV SCH (10:23)
[2017-10-09] MEDS: LOVENOX SUB-Q SCH (10:24)
[2017-10-09] MEDS: RisperDAL PO SCH ×3 (10:24→20:21)
[2017-10-09] MEDS: ZOLOFT PO SCH (10:24)
[2017-10-09] MEDS: PROTONIX PO SCH (10:24)
--- NOTE | 2017-10-09 12:59 | Progress Note ---
Assessment and Plan Assessment and plan: Patient is a man 72-year-old with history of dementia, GERD, peptic ulcer disorder and kidney stones who presents from the [facility] with altered mental status and behavioral issues. He was noted to be aggressive. Wandering into other patient's rooms. Being aggressive with staff members. Refusing to take his medications. Therefore he was sent to [place] inpatient psychiatric unit. Unfortunately while he was there he was more agitated, refusing his medications, he was noted to have projectile vomiting, nonstop vomiting. He was therefore brought to the hospital ER. Acute metabolic encephalopathy, POA, due to chronic medical condition: Treat conservatively SIRS UTI and sepsis ruled out blood and urine cx neg, dc abx Dementia with behavioral disturbance optimize behavioral meds Projectile vomiting/refusal to swallow has now resolved, tolerating PO, Case was dw GI, no further workup indicated GERD/history of peptic ulcer disease PPI Dispo: needs placement, will have to have Level 2 due to psych hx History Interval history: Patient was seen and examined. Follow-up on current diagnosis. Overnight uneventful. Patient nonverbal. Imaging, nursing note, chart, labs and old chart reviewed. Discussed with patient. Hospitalist Physical - Physical exam Narrative exam: General: Disheveled HEENT: Moist mucous membranes, extraocular muscles intact, no lymphadenopathy Neck: supple Cardiac: normal S1-S2 and rrr Lungs: clear to auscultation bilaterally Abdomen: soft , nontender, nondistended, bowel sounds positive Extremities: no edema clubbing or cyanosis Skin: no rash or lesions Neurologic: Moves all extremities Psych: Patient is clearly confused, - Constitutional Vitals: Temp Pulse Resp BP Pulse Ox 97.5 F L 86 20 127/83 97 10/09/17 07:20 10/09/17 07:38 10/09/17 07:38 10/09/17 07:20 10/09/17 07:38 Results - Labs CBC & Chem 7: 10/06/17 03:38 10/06/17 03:38 Labs: Laboratory Last Values WBC 13.3 K/mm3 (4.5-11.0) H 10/06/17 03:38 RBC 5.49 M/mm3 (3.65-5.03) H 10/06/17 03:38 Hgb 17.4 gm/dl (11.8-15.2) H 10/06/17 03:38 Hct 51.9 % (35.5-45.6) H D 10/06/17 03:38 MCV 95 fl (84-94) H 10/06/17 03:38 MCH 32 pg (28-32) 10/06/17 03:38 MCHC 34 % (32-34) 10/06/17 03:38 RDW 14.1 % (13.2-15.2) 10/06/17 03:38 Plt Count 184 K/mm3 (140-440) 10/06/17 03:38 Lymph % (Auto) 14.5 % (13.4-35.0) 10/06/17 03:38 [place] % (Auto) 9.3 % (0.0-7.3) H 10/06/17 03:38 Eos % (Auto) 0.2 % (0.0-4.3) 10/06/17 03:38 Baso % (Auto) 0.3 % (0.0-1.8) 10/06/17 03:38 Lymph # 1.9 K/mm3 (1.2-5.4) 10/06/17 03:38 [place] # 1.2 K/mm3 (0.0-0.8) H 10/06/17 03:38 Eos # 0.0 K/mm3 (0.0-0.4) 10/06/17 03:38 Baso # 0.0 K/mm3 (0.0-0.1) 10/06/17 03:38 Add Manual Diff Complete 10/04/17 22:06 Total Counted 100 10/04/17 22:06 Seg Neutrophils % 75.7 % (40.0-70.0) H 10/06/17 03:38 Seg Neuts % (Manual) 87.0 % (40.0-70.0) H 10/04/17 22:06 Band Neutrophils % 4.0 % 10/04/17 22:06 Lymphocytes % (Manual) 3.0 % (13.4-35.0) L 10/04/17 22:06 Reactive Lymphs % (Man) 0 % 10/04/17 22:06 Monocytes % (Manual) 6.0 % (0.0-7.3) 10/04/17 22:06 Eosinophils % (Manual) 0 % (0.0-4.3) 10/04/17 22:06 Basophils % (Manual) 0 % (0.0-1.8) 10/04/17 22:06 Metamyelocytes % 0 % 10/04/17 22:06 Myelocytes % 0 % 10/04/17 22:06 Promyelocytes % 0 % 10/04/17 22:06 Blast Cells % 0 % 10/04/17 22:06 Nucleated RBC % Not Reportable 10/04/17 22:06 Seg Neutrophils # 10.0 K/mm3 (1.8-7.7) H 10/06/17 03:38 Seg Neutrophils # Man 19.6 K/mm3 (1.8-7.7) H 10/04/17 22:06 Band Neutrophils # 0.9 K/mm3 10/04/17 22:06 Lymphocytes # (Manual) 0.7 K/mm3 (1.2-5.4) L 10/04/17 22:06 Abs React Lymphs (Man) 0.0 K/mm3 10/04/17 22:06 Monocytes # (Manual) 1.4 K/mm3 (0.0-0.8) H 10/04/17 22:06 Eosinophils # (Manual) 0.0 K/mm3 (0.0-0.4) 10/04/17 22:06 Basophils # (Manual) 0.0 K/mm3 (0.0-0.1) 10/04/17 22:06 Metamyelocytes # 0.0 K/mm3 10/04/17 22:06 Myelocytes # 0.0 K/mm3 10/04/17 22:06 Promyelocytes # 0.0 K/mm3 10/04/17 22:06 Blast Cells # 0.0 K/mm3 10/04/17 22:06 WBC Morphology Not Reportable 10/04/17 22:06 Hypersegmented Neuts Not Reportable 10/04/17 22:06 Hyposegmented Neuts Not Reportable 10/04/17 22:06 Hypogranular Neuts Not Reportable 10/04/17 22:06 Smudge Cells Not Reportable 10/04/17 22:06 Toxic Granulation Not Reportable 10/04/17 22:06 Toxic Vacuolation Not Reportable 10/04/17 22:06 Dohle Bodies Not Reportable 10/04/17 22:06 Pelger-Huet Anomaly Not Reportable 10/04/17 22:06 Javier Rods Not Reportable 10/04/17 22:06 Platelet Estimate Appears normal 10/04/17 22:06 Clumped Platelets Not Reportable 10/04/17 22:06 Plt Clumps, EDTA Not Reportable 10/04/17 22:06 Large Platelets Not Reportable 10/04/17 22:06 Giant Platelets Not Reportable 10/04/17 22:06 Platelet Satelliting Not Reportable 10/04/17 22:06 Plt Morphology Comment Not Reportable 10/04/17 22:06 RBC Morphology Normal 10/04/17 22:06 Dimorphic RBCs Not Reportable 10/04/17 22:06 Polychromasia Not Reportable 10/04/17 22:06 Hypochromasia Not Reportable 10/04/17 22:06 Poikilocytosis Not Reportable 10/04/17 22:06 Anisocytosis Not Reportable 10/04/17 22:06 Microcytosis Not Reportable 10/04/17 22:06 Macrocytosis Not Reportable 10/04/17 22:06 Spherocytes Not Reportable 10/04/17 22:06 Pappenheimer Bodies Not Reportable 10/04/17 22:06 Sickle Cells Not Reportable 10/04/17 22:06 Target Cells Not Reportable 10/04/17 22:06 Tear Drop Cells Not Reportable 10/04/17 22:06 Ovalocytes Not Reportable 10/04/17 22:06 Helmet Cells Not Reportable 10/04/17 22:06 [place] Bodies Not Reportable 10/04/17 22:06 [place] Rings Not Reportable 10/04/17 22:06 Franc Cells Not Reportable 10/04/17 22:06 Bite Cells Not Reportable 10/04/17 22:06 Crenated Cell Not Reportable 10/04/17 22:06 Elliptocytes Not Reportable 10/04/17 22:06 Acanthocytes (Spur) Not Reportable 10/04/17 22:06 Rouleaux Not Reportable 10/04/17 22:06 Hemoglobin C Crystals Not Reportable 10/04/17 22:06 Schistocytes Not Reportable 10/04/17 22:06 Malaria parasites Not Reportable 10/04/17 22:06 Donis Bodies Not Reportable 10/04/17 22:06 Hem Pathologist Commnt No 10/04/17 22:06 Sodium 136 mmol/L (137-145) L 10/06/17 03:38 Potassium 4.3 mmol/L (3.6-5.0) 10/06/17 03:38 Chloride 99.2 mmol/L (98-107) 10/06/17 03:38 Carbon Dioxide 24 mmol/L (22-30) 10/06/17 03:38 Anion Gap 17 mmol/L 10/06/17 03:38 BUN 20 mg/dL (9-20) 10/06/17 03:38 Creatinine 0.9 mg/dL (0.8-1.5) 10/06/17 03:38 Estimated GFR > 60 ml/min 10/06/17 03:38 BUN/Creatinine Ratio 22 % 10/06/17 03:38 Glucose 101 mg/dL (75-100) H 10/06/17 03:38 POC Glucose 71 (70-105) 10/07/17 07:27 Lactic Acid 3.40 mmol/L (0.7-2.0) H* 10/04/17 22:52 Calcium 8.2 mg/dL (8.4-10.2) L 10/06/17 03:38 Total Bilirubin 1.70 mg/dL (0.1-1.2) H 10/04/17 22:06 AST 19 units/L (5-40) 10/04/17 22:06 ALT 19 units/L (7-56) 10/04/17 22:06 Alkaline Phosphatase 91 units/L (35-129) 10/04/17 22:06 Total Creatine Kinase 503 units/L (55-170) H 10/05/17 15:01 CK-MB (CK-2) 3.1 ng/mL (0.0-4.0) 10/05/17 15:01 CK-MB (CK-2) Rel Index 0.6 (0-4) 10/05/17 15:01 Troponin T 0.018 ng/mL (0.00-0.029) 10/05/17 15:01 Total Protein 6.7 g/dL (6.3-8.2) 10/04/17 22:06 Albumin 3.9 g/dL (3.9-5) 10/04/17 22:06 Albumin/Globulin Ratio 1.4 % 10/04/17 22:06 Lipase 46 units/L (13-60) 10/04/17 22:06 Urine Color Yellow (Yellow) 10/05/17 Unknown Urine Turbidity Clear (Clear) 10/05/17 Unknown Urine pH 8.0 (5.0-7.0) H 10/05/17 Unknown Ur Specific [place] 1.038 (1.003-1.030) H 10/05/17 Unknown Urine Protein 30 mg/dl mg/dL (Negative) 10/05/17 Unknown Urine Glucose (UA) Neg mg/dL (Negative) 10/05/17 Unknown Urine Ketones Neg mg/dL (Negative) 10/05/17 Unknown Urine Blood Mod (Negative) 10/05/17 Unknown Urine Nitrite Neg (Negative) 10/05/17 Unknown Urine Bilirubin Neg (Negative) 10/05/17 Unknown Urine Urobilinogen < 2.0 mg/dL (<2.0) 10/05/17 Unknown Ur Leukocyte Esterase Sm (Negative) 10/05/17 Unknown Urine WBC (Auto) 26.0 /HPF (0.0-6.0) H 10/05/17 Unknown Urine RBC (Auto) 120.0 /HPF (0.0-6.0) 10/05/17 Unknown Urine Mucus Few /HPF 10/05/17 Unknown
[2017-10-09] MEDS ORDERED: SEROquel 50 MG, SEROquel 100 MG PO SCH (22:00)
[2017-10-09] MEDS: SENOKOT S PO SCH (22:06)
[2017-10-10] MEDS: NACL 0.9% 1000 ML 1,000 ML IV SCH ×2 (00:48→13:52)
[2017-10-10] MEDS: ZOSYN/NS 3.375GM/50ML 3.375 GM/50 ML BAG IV SCH ×3 (01:05→18:11)
[2017-10-10] MEDS: RisperDAL PO SCH ×3 (07:52→21:00)
[2017-10-10] MEDS: ZOLOFT PO SCH (09:15)
[2017-10-10] MEDS: LOVENOX SUB-Q SCH (09:15)
[2017-10-10] MEDS: PROTONIX PO SCH (09:15)
--- NOTE | 2017-10-10 10:57 | Progress Note ---
Assessment and Plan Assessment and plan: Patient is a 72-year-old man with history of dementia, GERD, peptic ulcer disorder and kidney stones [facility] ED with altered mental status and behavioral issues. He was noted to be aggressive. Wandering into other patient's rooms. Being aggressive with staff members. Refusing to take his medications. Therefore he was sent to [place] inpatient psychiatric unit. Unfortunately while he was there he was more agitated, refusing his medications, he was noted to have projectile vomiting, nonstop vomiting. Acute metabolic encephalopathy, POA, due to worsening chronic medical condition Treat conservatively SIRS UTI and sepsis ruled out blood and urine cx neg, dc abx Dementia with behavioral disturbance optimize behavioral meds Projectile vomiting/refusal to swallow has now resolved, tolerating PO, Case was dw GI, no further workup indicated GERD/history of peptic ulcer disease PPI Dispo: needs placement, will have to have Level 2 due to psych hx History Interval history: Patient was seen and examined. Follow-up on current diagnosis. Overnight uneventful. Patient nonverbal. Imaging, nursing note, chart, labs and old chart reviewed. Discussed with patient. Hospitalist Physical - Physical exam Narrative exam: General: Disheveled HEENT: Moist mucous membranes, extraocular muscles intact, no lymphadenopathy Neck: supple Cardiac: normal S1-S2 and rrr Lungs: clear to auscultation bilaterally Abdomen: soft , nontender, nondistended, bowel sounds positive Extremities: no edema clubbing or cyanosis Skin: no rash or lesions Neurologic: Moves all extremities Psych: Patient is clearly confused, - Constitutional Vitals: Temp Pulse Resp BP Pulse Ox 97.8 F 73 19 116/78 92 10/10/17 08:31 10/10/17 08:31 10/10/17 08:31 10/10/17 08:31 10/10/17 08:31 Results - Labs CBC & Chem 7: 10/06/17 03:38 10/06/17 03:38 Labs: Laboratory Last Values WBC 13.3 K/mm3 (4.5-11.0) H 10/06/17 03:38 RBC 5.49 M/mm3 (3.65-5.03) H 10/06/17 03:38 Hgb 17.4 gm/dl (11.8-15.2) H 10/06/17 03:38 Hct 51.9 % (35.5-45.6) H D 10/06/17 03:38 MCV 95 fl (84-94) H 10/06/17 03:38 MCH 32 pg (28-32) 10/06/17 03:38 MCHC 34 % (32-34) 10/06/17 03:38 RDW 14.1 % (13.2-15.2) 10/06/17 03:38 Plt Count 184 K/mm3 (140-440) 10/06/17 03:38 Lymph % (Auto) 14.5 % (13.4-35.0) 10/06/17 03:38 [place] % (Auto) 9.3 % (0.0-7.3) H 10/06/17 03:38 Eos % (Auto) 0.2 % (0.0-4.3) 10/06/17 03:38 Baso % (Auto) 0.3 % (0.0-1.8) 10/06/17 03:38 Lymph # 1.9 K/mm3 (1.2-5.4) 10/06/17 03:38 [place] # 1.2 K/mm3 (0.0-0.8) H 10/06/17 03:38 Eos # 0.0 K/mm3 (0.0-0.4) 10/06/17 03:38 Baso # 0.0 K/mm3 (0.0-0.1) 10/06/17 03:38 Add Manual Diff Complete 10/04/17 22:06 Total Counted 100 10/04/17 22:06 Seg Neutrophils % 75.7 % (40.0-70.0) H 10/06/17 03:38 Seg Neuts % (Manual) 87.0 % (40.0-70.0) H 10/04/17 22:06 Band Neutrophils % 4.0 % 10/04/17 22:06 Lymphocytes % (Manual) 3.0 % (13.4-35.0) L 10/04/17 22:06 Reactive Lymphs % (Man) 0 % 10/04/17 22:06 Monocytes % (Manual) 6.0 % (0.0-7.3) 10/04/17 22:06 Eosinophils % (Manual) 0 % (0.0-4.3) 10/04/17 22:06 Basophils % (Manual) 0 % (0.0-1.8) 10/04/17 22:06 Metamyelocytes % 0 % 10/04/17 22:06 Myelocytes % 0 % 10/04/17 22:06 Promyelocytes % 0 % 10/04/17 22:06 Blast Cells % 0 % 10/04/17 22:06 Nucleated RBC % Not Reportable 10/04/17 22:06 Seg Neutrophils # 10.0 K/mm3 (1.8-7.7) H 10/06/17 03:38 Seg Neutrophils # Man 19.6 K/mm3 (1.8-7.7) H 10/04/17 22:06 Band Neutrophils # 0.9 K/mm3 10/04/17 22:06 Lymphocytes # (Manual) 0.7 K/mm3 (1.2-5.4) L 10/04/17 22:06 Abs React Lymphs (Man) 0.0 K/mm3 10/04/17 22:06 Monocytes # (Manual) 1.4 K/mm3 (0.0-0.8) H 10/04/17 22:06 Eosinophils # (Manual) 0.0 K/mm3 (0.0-0.4) 10/04/17 22:06 Basophils # (Manual) 0.0 K/mm3 (0.0-0.1) 10/04/17 22:06 Metamyelocytes # 0.0 K/mm3 10/04/17 22:06 Myelocytes # 0.0 K/mm3 10/04/17 22:06 Promyelocytes # 0.0 K/mm3 10/04/17 22:06 Blast Cells # 0.0 K/mm3 10/04/17 22:06 WBC Morphology Not Reportable 10/04/17 22:06 Hypersegmented Neuts Not Reportable 10/04/17 22:06 Hyposegmented Neuts Not Reportable 10/04/17 22:06 Hypogranular Neuts Not Reportable 10/04/17 22:06 Smudge Cells Not Reportable 10/04/17 22:06 Toxic Granulation Not Reportable 10/04/17 22:06 Toxic Vacuolation Not Reportable 10/04/17 22:06 Dohle Bodies Not Reportable 10/04/17 22:06 Pelger-Huet Anomaly Not Reportable 10/04/17 22:06 Javier Rods Not Reportable 10/04/17 22:06 Platelet Estimate Appears normal 10/04/17 22:06 Clumped Platelets Not Reportable 10/04/17 22:06 Plt Clumps, EDTA Not Reportable 10/04/17 22:06 Large Platelets Not Reportable 10/04/17 22:06 Giant Platelets Not Reportable 10/04/17 22:06 Platelet Satelliting Not Reportable 10/04/17 22:06 Plt Morphology Comment Not Reportable 10/04/17 22:06 RBC Morphology Normal 10/04/17 22:06 Dimorphic RBCs Not Reportable 10/04/17 22:06 Polychromasia Not Reportable 10/04/17 22:06 Hypochromasia Not Reportable 10/04/17 22:06 Poikilocytosis Not Reportable 10/04/17 22:06 Anisocytosis Not Reportable 10/04/17 22:06 Microcytosis Not Reportable 10/04/17 22:06 Macrocytosis Not Reportable 10/04/17 22:06 Spherocytes Not Reportable 10/04/17 22:06 Pappenheimer Bodies Not Reportable 10/04/17 22:06 Sickle Cells Not Reportable 10/04/17 22:06 Target Cells Not Reportable 10/04/17 22:06 Tear Drop Cells Not Reportable 10/04/17 22:06 Ovalocytes Not Reportable 10/04/17 22:06 Helmet Cells Not Reportable 10/04/17 22:06 Armendariz[place] Bodies Not Reportable 10/04/17 22:06 [place] Rings Not Reportable 10/04/17 22:06 Franc Cells Not Reportable 10/04/17 22:06 Bite Cells Not Reportable 10/04/17 22:06 Crenated Cell Not Reportable 10/04/17 22:06 Elliptocytes Not Reportable 10/04/17 22:06 Acanthocytes (Spur) Not Reportable 10/04/17 22:06 Rouleaux Not Reportable 10/04/17 22:06 Hemoglobin C Crystals Not Reportable 10/04/17 22:06 Schistocytes Not Reportable 10/04/17 22:06 Malaria parasites Not Reportable 10/04/17 22:06 Donis Bodies Not Reportable 10/04/17 22:06 Hem Pathologist Commnt No 10/04/17 22:06 Sodium 136 mmol/L (137-145) L 10/06/17 03:38 Potassium 4.3 mmol/L (3.6-5.0) 10/06/17 03:38 Chloride 99.2 mmol/L (98-107) 10/06/17 03:38 Carbon Dioxide 24 mmol/L (22-30) 10/06/17 03:38 Anion Gap 17 mmol/L 10/06/17 03:38 BUN 20 mg/dL (9-20) 10/06/17 03:38 Creatinine 0.9 mg/dL (0.8-1.5) 10/06/17 03:38 Estimated GFR > 60 ml/min 10/06/17 03:38 BUN/Creatinine Ratio 22 % 10/06/17 03:38 Glucose 101 mg/dL (75-100) H 10/06/17 03:38 POC Glucose 71 (70-105) 10/07/17 07:27 Lactic Acid 3.40 mmol/L (0.7-2.0) H* 10/04/17 22:52 Calcium 8.2 mg/dL (8.4-10.2) L 10/06/17 03:38 Total Bilirubin 1.70 mg/dL (0.1-1.2) H 10/04/17 22:06 AST 19 units/L (5-40) 10/04/17 22:06 ALT 19 units/L (7-56) 10/04/17 22:06 Alkaline Phosphatase 91 units/L (35-129) 10/04/17 22:06 Total Creatine Kinase 503 units/L (55-170) H 10/05/17 15:01 CK-MB (CK-2) 3.1 ng/mL (0.0-4.0) 10/05/17 15:01 CK-MB (CK-2) Rel Index 0.6 (0-4) 10/05/17 15:01 Troponin T 0.018 ng/mL (0.00-0.029) 10/05/17 15:01 Total Protein 6.7 g/dL (6.3-8.2) 10/04/17 22:06 Albumin 3.9 g/dL (3.9-5) 10/04/17 22:06 Albumin/Globulin Ratio 1.4 % 10/04/17 22:06 Lipase 46 units/L (13-60) 10/04/17 22:06 Urine Color Yellow (Yellow) 10/05/17 Unknown Urine Turbidity Clear (Clear) 10/05/17 Unknown Urine pH 8.0 (5.0-7.0) H 10/05/17 Unknown Ur Specific [place] 1.038 (1.003-1.030) H 10/05/17 Unknown Urine Protein 30 mg/dl mg/dL (Negative) 10/05/17 Unknown Urine Glucose (UA) Neg mg/dL (Negative) 10/05/17 Unknown Urine Ketones Neg mg/dL (Negative) 10/05/17 Unknown Urine Blood Mod (Negative) 10/05/17 Unknown Urine Nitrite Neg (Negative) 10/05/17 Unknown Urine Bilirubin Neg (Negative) 10/05/17 Unknown Urine Urobilinogen < 2.0 mg/dL (<2.0) 10/05/17 Unknown Ur Leukocyte Esterase Sm (Negative) 10/05/17 Unknown Urine WBC (Auto) 26.0 /HPF (0.0-6.0) H 10/05/17 Unknown Urine RBC (Auto) 120.0 /HPF (0.0-6.0) 10/05/17 Unknown Urine Mucus Few /HPF 10/05/17 Unknown
--- NOTE | 2017-10-10 12:28 | Progress Note ---
Subjective - Reason for Consult Consult date: 10/10/17 Reason for consult: Psychiatry Follow-up - Chief Complaint Chief complaint: "Hello" 72-year-old white male with a hx of dementia, GERD, gastric ulcers was sent to the emergency room from [facility] because he was confused and agitated episodes of N/V. Today patient is calm, but confused during the assessment. He was able to follow some commands during the interview. He did say "hello" when I introduced myself. Per the staff, the patient ate 50% off his breakfast this morning and no reports of behavioral disturbance overnight. No gestures of SI/HI 's. Mental Status Exam - Vital signs Last Vital Signs Temp 97.8 F 10/10/17 08:31 Pulse 73 10/10/17 08:31 Resp 19 10/10/17 08:31 BP 116/78 10/10/17 08:31 Pulse Ox 92 10/10/17 08:31 - Exam Narrative exam: MSE: Appearance: calm Behavior: poor eye contact Speech: regular rate and tone Mood: unable to assess Affect: flat Thought Process: unable to assess Thought Content: no gestures of SI/HI's and AVH's Motor Activity: sitting up in bed Cognition: confused Insight: limited Judgment: limited Assessment and Plan Impression: Dementia with behavioral disturbances. Today patient is calm, but confused during the assessment. Patient not in restraints. Recommendation/Plan: Continue Seroquel 150 mg PO HS and current medication regimen (Zoloft and Risperdal) that was started at [facility] prior to his admission to [facility]. Patient is pending placement. Will assess patient daily. Recommend the following below: 1. Frequently reorient patient and involve him/her in their care (simple explanations of procedures, tests, medications). 2. Lights on and shades open during daytime hours. 3. Try to avoid unnecessary interruptions to sleep during nighttime hours. 4. Obtain glasses, hearing aids from home if patient uses these at baseline. 5. Avoid medications that may exacerbate delirium (especially narcotics, benzodiazepines, barbiturates, ambien, lunesta, and medications with excessive anticholinergic properties). 6. Recommend Haldol 2 mg IM Q6hrs PRN for acute agitation. 7. Recommend 1:1 sitter for safety.
[2017-10-10] MEDS: SENOKOT S PO SCH (22:17)
[2017-10-11] MEDS: NACL 0.9% 1000 ML 1,000 ML IV SCH ×2 (00:42→15:43)
[2017-10-11] MEDS: ZOSYN/NS 3.375GM/50ML 3.375 GM/50 ML BAG IV SCH ×3 (02:38→16:59)
[2017-10-11] MEDS: RisperDAL PO SCH ×3 (07:42→23:10)
[2017-10-11] MEDS: LOVENOX SUB-Q SCH (09:03)
[2017-10-11] MEDS: PROTONIX PO SCH (09:04)
[2017-10-11] MEDS: ZOLOFT PO SCH (09:04)
--- NOTE | 2017-10-11 12:53 | Progress Note ---
Assessment and Plan Assessment and plan: Patient is a 72-year-old man with history of dementia, GERD, peptic ulcer disorder and kidney stones who presented from the shelter to [facility] ED with altered mental status and behavioral issues. He was noted to be aggressive. Wandering into other patient's rooms. Being aggressive with staff members. Refusing to take his medications. Therefore he was sent to [place] inpatient psychiatric unit. Unfortunately while he was there he was more agitated, refusing his medications, he was noted to have projectile vomiting, nonstop vomiting. Acute metabolic encephalopathy, POA, due to worsening chronic medical condition Treat conservatively SIRS UTI and sepsis ruled out blood and urine cx neg, dc abx Dementia with behavioral disturbance optimize behavioral meds Projectile vomiting/refusal to swallow has now resolved, tolerating PO, Case was dw GI, no further workup indicated GERD/history of peptic ulcer disease PPI Dispo: needs placement, will have to have Level 2 due to psych hx History Interval history: Patient was seen and examined. Follow-up on current diagnosis. Overnight uneventful. Patient nonverbal. Imaging, nursing note, chart, labs and old chart reviewed. Discussed with patient. Hospitalist Physical - Physical exam Narrative exam: General: Disheveled HEENT: Moist mucous membranes, extraocular muscles intact, no lymphadenopathy Neck: supple Cardiac: normal S1-S2 and rrr Lungs: clear to auscultation bilaterally Abdomen: soft , nontender, nondistended, bowel sounds positive Extremities: no edema clubbing or cyanosis Skin: no rash or lesions Neurologic: Moves all extremities Psych: Patient is clearly confused, - Constitutional Vitals: Temp Pulse Resp BP Pulse Ox 97.3 F L 84 20 112/72 100 10/11/17 07:50 10/11/17 07:50 10/11/17 07:50 10/11/17 07:50 10/11/17 07:50 Results - Labs CBC & Chem 7: 10/06/17 03:38 10/06/17 03:38 Labs: Laboratory Last Values WBC 13.3 K/mm3 (4.5-11.0) H 10/06/17 03:38 RBC 5.49 M/mm3 (3.65-5.03) H 10/06/17 03:38 Hgb 17.4 gm/dl (11.8-15.2) H 10/06/17 03:38 Hct 51.9 % (35.5-45.6) H D 10/06/17 03:38 MCV 95 fl (84-94) H 10/06/17 03:38 MCH 32 pg (28-32) 10/06/17 03:38 MCHC 34 % (32-34) 10/06/17 03:38 RDW 14.1 % (13.2-15.2) 10/06/17 03:38 Plt Count 184 K/mm3 (140-440) 10/06/17 03:38 Lymph % (Auto) 14.5 % (13.4-35.0) 10/06/17 03:38 [place] % (Auto) 9.3 % (0.0-7.3) H 10/06/17 03:38 Eos % (Auto) 0.2 % (0.0-4.3) 10/06/17 03:38 Baso % (Auto) 0.3 % (0.0-1.8) 10/06/17 03:38 Lymph # 1.9 K/mm3 (1.2-5.4) 10/06/17 03:38 [place] # 1.2 K/mm3 (0.0-0.8) H 10/06/17 03:38 Eos # 0.0 K/mm3 (0.0-0.4) 10/06/17 03:38 Baso # 0.0 K/mm3 (0.0-0.1) 10/06/17 03:38 Add Manual Diff Complete 10/04/17 22:06 Total Counted 100 10/04/17 22:06 Seg Neutrophils % 75.7 % (40.0-70.0) H 10/06/17 03:38 Seg Neuts % (Manual) 87.0 % (40.0-70.0) H 10/04/17 22:06 Band Neutrophils % 4.0 % 10/04/17 22:06 Lymphocytes % (Manual) 3.0 % (13.4-35.0) L 10/04/17 22:06 Reactive Lymphs % (Man) 0 % 10/04/17 22:06 Monocytes % (Manual) 6.0 % (0.0-7.3) 10/04/17 22:06 Eosinophils % (Manual) 0 % (0.0-4.3) 10/04/17 22:06 Basophils % (Manual) 0 % (0.0-1.8) 10/04/17 22:06 Metamyelocytes % 0 % 10/04/17 22:06 Myelocytes % 0 % 10/04/17 22:06 Promyelocytes % 0 % 10/04/17 22:06 Blast Cells % 0 % 10/04/17 22:06 Nucleated RBC % Not Reportable 10/04/17 22:06 Seg Neutrophils # 10.0 K/mm3 (1.8-7.7) H 10/06/17 03:38 Seg Neutrophils # Man 19.6 K/mm3 (1.8-7.7) H 10/04/17 22:06 Band Neutrophils # 0.9 K/mm3 10/04/17 22:06 Lymphocytes # (Manual) 0.7 K/mm3 (1.2-5.4) L 10/04/17 22:06 Abs React Lymphs (Man) 0.0 K/mm3 10/04/17 22:06 Monocytes # (Manual) 1.4 K/mm3 (0.0-0.8) H 10/04/17 22:06 Eosinophils # (Manual) 0.0 K/mm3 (0.0-0.4) 10/04/17 22:06 Basophils # (Manual) 0.0 K/mm3 (0.0-0.1) 10/04/17 22:06 Metamyelocytes # 0.0 K/mm3 10/04/17 22:06 Myelocytes # 0.0 K/mm3 10/04/17 22:06 Promyelocytes # 0.0 K/mm3 10/04/17 22:06 Blast Cells # 0.0 K/mm3 10/04/17 22:06 WBC Morphology Not Reportable 10/04/17 22:06 Hypersegmented Neuts Not Reportable 10/04/17 22:06 Hyposegmented Neuts Not Reportable 10/04/17 22:06 Hypogranular Neuts Not Reportable 10/04/17 22:06 Smudge Cells Not Reportable 10/04/17 22:06 Toxic Granulation Not Reportable 10/04/17 22:06 Toxic Vacuolation Not Reportable 10/04/17 22:06 Dohle Bodies Not Reportable 10/04/17 22:06 Pelger-Huet Anomaly Not Reportable 10/04/17 22:06 Javier Rods Not Reportable 10/04/17 22:06 Platelet Estimate Appears normal 10/04/17 22:06 Clumped Platelets Not Reportable 10/04/17 22:06 Plt Clumps, EDTA Not Reportable 10/04/17 22:06 Large Platelets Not Reportable 10/04/17 22:06 Giant Platelets Not Reportable 10/04/17 22:06 Platelet Satelliting Not Reportable 10/04/17 22:06 Plt Morphology Comment Not Reportable 10/04/17 22:06 RBC Morphology Normal 10/04/17 22:06 Dimorphic RBCs Not Reportable 10/04/17 22:06 Polychromasia Not Reportable 10/04/17 22:06 Hypochromasia Not Reportable 10/04/17 22:06 Poikilocytosis Not Reportable 10/04/17 22:06 Anisocytosis Not Reportable 10/04/17 22:06 Microcytosis Not Reportable 10/04/17 22:06 Macrocytosis Not Reportable 10/04/17 22:06 Spherocytes Not Reportable 10/04/17 22:06 Pappenheimer Bodies Not Reportable 10/04/17 22:06 Sickle Cells Not Reportable 10/04/17 22:06 Target Cells Not Reportable 10/04/17 22:06 Tear Drop Cells Not Reportable 10/04/17 22:06 Ovalocytes Not Reportable 10/04/17 22:06 Helmet Cells Not Reportable 10/04/17 22:06 [place] Bodies Not Reportable 10/04/17 22:06 [place] Rings Not Reportable 10/04/17 22:06 [place] Cells Not Reportable 10/04/17 22:06 Bite Cells Not Reportable 10/04/17 22:06 Crenated Cell Not Reportable 10/04/17 22:06 Elliptocytes Not Reportable 10/04/17 22:06 Acanthocytes (Spur) Not Reportable 10/04/17 22:06 Rouleaux Not Reportable 10/04/17 22:06 Hemoglobin C Crystals Not Reportable 10/04/17 22:06 Schistocytes Not Reportable 10/04/17 22:06 Malaria parasites Not Reportable 10/04/17 22:06 Donis Bodies Not Reportable 10/04/17 22:06 Hem Pathologist Commnt No 10/04/17 22:06 Sodium 136 mmol/L (137-145) L 10/06/17 03:38 Potassium 4.3 mmol/L (3.6-5.0) 10/06/17 03:38 Chloride 99.2 mmol/L (98-107) 10/06/17 03:38 Carbon Dioxide 24 mmol/L (22-30) 10/06/17 03:38 Anion Gap 17 mmol/L 10/06/17 03:38 BUN 20 mg/dL (9-20) 10/06/17 03:38 Creatinine 0.9 mg/dL (0.8-1.5) 10/06/17 03:38 Estimated GFR > 60 ml/min 10/06/17 03:38 BUN/Creatinine Ratio 22 % 10/06/17 03:38 Glucose 101 mg/dL (75-100) H 10/06/17 03:38 POC Glucose 71 (70-105) 10/07/17 07:27 Lactic Acid 3.40 mmol/L (0.7-2.0) H* 10/04/17 22:52 Calcium 8.2 mg/dL (8.4-10.2) L 10/06/17 03:38 Total Bilirubin 1.70 mg/dL (0.1-1.2) H 10/04/17 22:06 AST 19 units/L (5-40) 10/04/17 22:06 ALT 19 units/L (7-56) 10/04/17 22:06 Alkaline Phosphatase 91 units/L (35-129) 10/04/17 22:06 Total Creatine Kinase 503 units/L (55-170) H 10/05/17 15:01 CK-MB (CK-2) 3.1 ng/mL (0.0-4.0) 10/05/17 15:01 CK-MB (CK-2) Rel Index 0.6 (0-4) 10/05/17 15:01 Troponin T 0.018 ng/mL (0.00-0.029) 10/05/17 15:01 Total Protein 6.7 g/dL (6.3-8.2) 10/04/17 22:06 Albumin 3.9 g/dL (3.9-5) 10/04/17 22:06 Albumin/Globulin Ratio 1.4 % 10/04/17 22:06 Lipase 46 units/L (13-60) 10/04/17 22:06 Urine Color Yellow (Yellow) 10/05/17 Unknown Urine Turbidity Clear (Clear) 10/05/17 Unknown Urine pH 8.0 (5.0-7.0) H 10/05/17 Unknown Ur Specific [place] 1.038 (1.003-1.030) H 10/05/17 Unknown Urine Protein 30 mg/dl mg/dL (Negative) 10/05/17 Unknown Urine Glucose (UA) Neg mg/dL (Negative) 10/05/17 Unknown Urine Ketones Neg mg/dL (Negative) 10/05/17 Unknown Urine Blood Mod (Negative) 10/05/17 Unknown Urine Nitrite Neg (Negative) 10/05/17 Unknown Urine Bilirubin Neg (Negative) 10/05/17 Unknown Urine Urobilinogen < 2.0 mg/dL (<2.0) 10/05/17 Unknown Ur Leukocyte Esterase Sm (Negative) 10/05/17 Unknown Urine WBC (Auto) 26.0 /HPF (0.0-6.0) H 10/05/17 Unknown Urine RBC (Auto) 120.0 /HPF (0.0-6.0) 10/05/17 Unknown Urine Mucus Few /HPF 10/05/17 Unknown
--- NOTE | 2017-10-11 13:09 | Progress Note ---
Subjective - Reason for Consult Consult date: 10/11/17 Reason for consult: Psychiatry Follow-up - Chief Complaint Chief complaint: "Hello" 72-year-old white male with a hx of dementia, GERD, gastric ulcers was sent to the emergency room from [place] because he was confused and agitated episodes of N/V. Today patient is calm during the assessment. He was being set up to eat his lunch by staff. When asked how he was feeling he stated, "okay." Per his assigned RN, no report of behavioral disturbance last night. No gestures of SI/HI's. Mental Status Exam - Vital signs Last Vital Signs Temp 97.3 F L 10/11/17 07:50 Pulse 84 10/11/17 07:50 Resp 20 10/11/17 07:50 BP 112/72 10/11/17 07:50 Pulse Ox 100 10/11/17 07:50 - Exam Narrative exam: MSE: Appearance: calm Behavior: regular eye contact Speech: regular rate and tone Mood: "okay" Affect: congruent to mood Thought Process: unable to assess Thought Content: no gestures of SI/HI's and AVH's Motor Activity: sitting up in bed Cognition: A/O x1 Insight: limited Judgment: limited Assessment and Plan Impression: Dementia with behavioral disturbances. Today patient is calm during the assessment. No side effects noted of his medications. Recommendation/Plan: Continue Seroquel 150 mg PO HS and current medication regimen (Zoloft and Risperdal) that was started at [place] prior to his admission to [facility]. Patient is pending placement. Will assess patient daily. Recommend the following below: 1. Frequently reorient patient and involve him/her in their care (simple explanations of procedures, tests, medications). 2. Lights on and shades open during daytime hours. 3. Try to avoid unnecessary interruptions to sleep during nighttime hours. 4. Obtain glasses, hearing aids from home if patient uses these at baseline. 5. Avoid medications that may exacerbate delirium (especially narcotics, benzodiazepines, barbiturates, ambien, lunesta, and medications with excessive anticholinergic properties). 6. Recommend Haldol 2 mg IM Q6hrs PRN for acute agitation. 7. Recommend 1:1 sitter for safety.
[2017-10-11] MEDS: SENOKOT S PO SCH (23:13)
[2017-10-12] MEDS: NACL 0.9% 1000 ML 1,000 ML IV SCH ×2 (02:11→13:49)
[2017-10-12] MEDS: LOVENOX SUB-Q SCH (10:17)
[2017-10-12] MEDS: ZOLOFT PO SCH (10:17)
[2017-10-12] MEDS: RisperDAL PO SCH ×2 (10:17→13:55)
[2017-10-12] MEDS: PROTONIX PO SCH (10:18)
--- NOTE | 2017-10-12 11:47 | Progress Note ---
Assessment and Plan Assessment and plan: Patient is a 72-year-old man with history of dementia, GERD, peptic ulcer disorder and kidney stones who presented from the residential to [facility] ED with altered mental status and behavioral issues. He was noted to be aggressive. Wandering into other patient's rooms. Being aggressive with staff members. Refusing to take his medications. Therefore he was sent to [place] inpatient psychiatric unit. Unfortunately while he was there he was more agitated, refusing his medications, he was noted to have projectile vomiting, nonstop vomiting. Acute metabolic encephalopathy, POA, due to worsening chronic medical condition Treat conservatively SIRS UTI and sepsis ruled out blood and urine cx neg, dc abx Dementia with behavioral disturbance optimize behavioral meds Projectile vomiting/refusal to swallow resolved, tolerating PO, GI=> no further workup indicated GERD/history of peptic ulcer disease PPI Dispo: needs placement, will have to have Level 2 due to psych hx History Interval history: Patient was seen and examined. Follow-up on current diagnosis. Overnight uneventful. Patient mumbles, yells and curses on occasions. Imaging, nursing note, chart, labs and old chart reviewed. Discussed with patient. Hospitalist Physical - Physical exam Narrative exam: General: Disheveled HEENT: Moist mucous membranes, extraocular muscles intact, no lymphadenopathy Neck: supple Cardiac: normal S1-S2 and rrr Lungs: clear to auscultation bilaterally Abdomen: soft , nontender, nondistended, bowel sounds positive Extremities: no edema clubbing or cyanosis Skin: no rash or lesions Neurologic: Moves all extremities Psych: Patient is clearly confused, - Constitutional Vitals: Temp Pulse Resp BP Pulse Ox 97.8 F 69 18 125/60 98 10/12/17 07:30 10/12/17 07:30 10/12/17 07:30 10/12/17 07:31 10/12/17 07:30 Results - Labs CBC & Chem 7: 10/06/17 03:38 10/06/17 03:38 Labs: Laboratory Last Values WBC 13.3 K/mm3 (4.5-11.0) H 10/06/17 03:38 RBC 5.49 M/mm3 (3.65-5.03) H 10/06/17 03:38 Hgb 17.4 gm/dl (11.8-15.2) H 10/06/17 03:38 Hct 51.9 % (35.5-45.6) H D 10/06/17 03:38 MCV 95 fl (84-94) H 10/06/17 03:38 MCH 32 pg (28-32) 10/06/17 03:38 MCHC 34 % (32-34) 10/06/17 03:38 RDW 14.1 % (13.2-15.2) 10/06/17 03:38 Plt Count 184 K/mm3 (140-440) 10/06/17 03:38 Lymph % (Auto) 14.5 % (13.4-35.0) 10/06/17 03:38 [place] % (Auto) 9.3 % (0.0-7.3) H 10/06/17 03:38 Eos % (Auto) 0.2 % (0.0-4.3) 10/06/17 03:38 Baso % (Auto) 0.3 % (0.0-1.8) 10/06/17 03:38 Lymph # 1.9 K/mm3 (1.2-5.4) 10/06/17 03:38 [place] # 1.2 K/mm3 (0.0-0.8) H 10/06/17 03:38 Eos # 0.0 K/mm3 (0.0-0.4) 10/06/17 03:38 Baso # 0.0 K/mm3 (0.0-0.1) 10/06/17 03:38 Add Manual Diff Complete 10/04/17 22:06 Total Counted 100 10/04/17 22:06 Seg Neutrophils % 75.7 % (40.0-70.0) H 10/06/17 03:38 Seg Neuts % (Manual) 87.0 % (40.0-70.0) H 10/04/17 22:06 Band Neutrophils % 4.0 % 10/04/17 22:06 Lymphocytes % (Manual) 3.0 % (13.4-35.0) L 10/04/17 22:06 Reactive Lymphs % (Man) 0 % 10/04/17 22:06 Monocytes % (Manual) 6.0 % (0.0-7.3) 10/04/17 22:06 Eosinophils % (Manual) 0 % (0.0-4.3) 10/04/17 22:06 Basophils % (Manual) 0 % (0.0-1.8) 10/04/17 22:06 Metamyelocytes % 0 % 10/04/17 22:06 Myelocytes % 0 % 10/04/17 22:06 Promyelocytes % 0 % 10/04/17 22:06 Blast Cells % 0 % 10/04/17 22:06 Nucleated RBC % Not Reportable 10/04/17 22:06 Seg Neutrophils # 10.0 K/mm3 (1.8-7.7) H 10/06/17 03:38 Seg Neutrophils # Man 19.6 K/mm3 (1.8-7.7) H 10/04/17 22:06 Band Neutrophils # 0.9 K/mm3 10/04/17 22:06 Lymphocytes # (Manual) 0.7 K/mm3 (1.2-5.4) L 10/04/17 22:06 Abs React Lymphs (Man) 0.0 K/mm3 10/04/17 22:06 Monocytes # (Manual) 1.4 K/mm3 (0.0-0.8) H 10/04/17 22:06 Eosinophils # (Manual) 0.0 K/mm3 (0.0-0.4) 10/04/17 22:06 Basophils # (Manual) 0.0 K/mm3 (0.0-0.1) 10/04/17 22:06 Metamyelocytes # 0.0 K/mm3 10/04/17 22:06 Myelocytes # 0.0 K/mm3 10/04/17 22:06 Promyelocytes # 0.0 K/mm3 10/04/17 22:06 Blast Cells # 0.0 K/mm3 10/04/17 22:06 WBC Morphology Not Reportable 10/04/17 22:06 Hypersegmented Neuts Not Reportable 10/04/17 22:06 Hyposegmented Neuts Not Reportable 10/04/17 22:06 Hypogranular Neuts Not Reportable 10/04/17 22:06 Smudge Cells Not Reportable 10/04/17 22:06 Toxic Granulation Not Reportable 10/04/17 22:06 Toxic Vacuolation Not Reportable 10/04/17 22:06 Dohle Bodies Not Reportable 10/04/17 22:06 Pelger-Huet Anomaly Not Reportable 10/04/17 22:06 Javier Rods Not Reportable 10/04/17 22:06 Platelet Estimate Appears normal 10/04/17 22:06 Clumped Platelets Not Reportable 10/04/17 22:06 Plt Clumps, EDTA Not Reportable 10/04/17 22:06 Large Platelets Not Reportable 10/04/17 22:06 Giant Platelets Not Reportable 10/04/17 22:06 Platelet Satelliting Not Reportable 10/04/17 22:06 Plt Morphology Comment Not Reportable 10/04/17 22:06 RBC Morphology Normal 10/04/17 22:06 Dimorphic RBCs Not Reportable 10/04/17 22:06 Polychromasia Not Reportable 10/04/17 22:06 Hypochromasia Not Reportable 10/04/17 22:06 Poikilocytosis Not Reportable 10/04/17 22:06 Anisocytosis Not Reportable 10/04/17 22:06 Microcytosis Not Reportable 10/04/17 22:06 Macrocytosis Not Reportable 10/04/17 22:06 Spherocytes Not Reportable 10/04/17 22:06 Pappenheimer Bodies Not Reportable 10/04/17 22:06 Sickle Cells Not Reportable 10/04/17 22:06 Target Cells Not Reportable 10/04/17 22:06 Tear Drop Cells Not Reportable 10/04/17 22:06 Ovalocytes Not Reportable 10/04/17 22:06 Helmet Cells Not Reportable 10/04/17 22:06 Armendariz-[place] Bodies Not Reportable 10/04/17 22:06 [place] Rings Not Reportable 10/04/17 22:06 [place] Cells Not Reportable 10/04/17 22:06 Bite Cells Not Reportable 10/04/17 22:06 Crenated Cell Not Reportable 10/04/17 22:06 Elliptocytes Not Reportable 10/04/17 22:06 Acanthocytes (Spur) Not Reportable 10/04/17 22:06 Rouleaux Not Reportable 10/04/17 22:06 Hemoglobin C Crystals Not Reportable 10/04/17 22:06 Schistocytes Not Reportable 10/04/17 22:06 Malaria parasites Not Reportable 10/04/17 22:06 Donis Bodies Not Reportable 10/04/17 22:06 Hem Pathologist Commnt No 10/04/17 22:06 Sodium 136 mmol/L (137-145) L 10/06/17 03:38 Potassium 4.3 mmol/L (3.6-5.0) 10/06/17 03:38 Chloride 99.2 mmol/L (98-107) 10/06/17 03:38 Carbon Dioxide 24 mmol/L (22-30) 10/06/17 03:38 Anion Gap 17 mmol/L 10/06/17 03:38 BUN 20 mg/dL (9-20) 10/06/17 03:38 Creatinine 0.9 mg/dL (0.8-1.5) 10/06/17 03:38 Estimated GFR > 60 ml/min 10/06/17 03:38 BUN/Creatinine Ratio 22 % 10/06/17 03:38 Glucose 101 mg/dL (75-100) H 10/06/17 03:38 POC Glucose 71 (70-105) 10/07/17 07:27 Lactic Acid 3.40 mmol/L (0.7-2.0) H* 10/04/17 22:52 Calcium 8.2 mg/dL (8.4-10.2) L 10/06/17 03:38 Total Bilirubin 1.70 mg/dL (0.1-1.2) H 10/04/17 22:06 AST 19 units/L (5-40) 10/04/17 22:06 ALT 19 units/L (7-56) 10/04/17 22:06 Alkaline Phosphatase 91 units/L (35-129) 10/04/17 22:06 Total Creatine Kinase 503 units/L (55-170) H 10/05/17 15:01 CK-MB (CK-2) 3.1 ng/mL (0.0-4.0) 10/05/17 15:01 CK-MB (CK-2) Rel Index 0.6 (0-4) 10/05/17 15:01 Troponin T 0.018 ng/mL (0.00-0.029) 10/05/17 15:01 Total Protein 6.7 g/dL (6.3-8.2) 10/04/17 22:06 Albumin 3.9 g/dL (3.9-5) 10/04/17 22:06 Albumin/Globulin Ratio 1.4 % 10/04/17 22:06 Lipase 46 units/L (13-60) 10/04/17 22:06 Urine Color Yellow (Yellow) 10/05/17 Unknown Urine Turbidity Clear (Clear) 10/05/17 Unknown Urine pH 8.0 (5.0-7.0) H 10/05/17 Unknown Ur Specific [place] 1.038 (1.003-1.030) H 10/05/17 Unknown Urine Protein 30 mg/dl mg/dL (Negative) 10/05/17 Unknown Urine Glucose (UA) Neg mg/dL (Negative) 10/05/17 Unknown Urine Ketones Neg mg/dL (Negative) 10/05/17 Unknown Urine Blood Mod (Negative) 10/05/17 Unknown Urine Nitrite Neg (Negative) 10/05/17 Unknown Urine Bilirubin Neg (Negative) 10/05/17 Unknown Urine Urobilinogen < 2.0 mg/dL (<2.0) 10/05/17 Unknown Ur Leukocyte Esterase Sm (Negative) 10/05/17 Unknown Urine WBC (Auto) 26.0 /HPF (0.0-6.0) H 10/05/17 Unknown Urine RBC (Auto) 120.0 /HPF (0.0-6.0) 10/05/17 Unknown Urine Mucus Few /HPF 10/05/17 Unknown
[2017-10-12] MEDS: ZOSYN/NS 3.375GM/50ML 3.375 GM/50 ML BAG IV SCH ×3 (13:53→18:13)
--- NOTE | 2017-10-12 17:22 | Progress Note ---
Subjective - Reason for Consult Consult date: 10/12/17 Reason for consult: follow up - Chief Complaint Chief complaint: "Hello" 72-year-old white male with a hx of dementia, GERD, gastric ulcers was sent to the emergency room from [place] because he was confused and agitated episodes of N/V. Today patient is calm during the assessment but confused. Staff report he is responding to people who are not there. He asked the nurse for meth. The nurse reports he got up to the bathroom and had trouble with his gait. No gestures of SI/HI's. He has been drinking ensure. He is not sleeping well. Mental Status Exam - Vital signs Last Vital Signs Temp 97.4 F L 10/12/17 14:51 Pulse 74 10/12/17 14:52 Resp 18 10/12/17 14:51 BP 102/61 10/12/17 14:51 Pulse Ox 100 10/12/17 14:52 - Exam Narrative exam: MSE: Appearance: calm Behavior: regular eye contact Speech: regular rate and tone Mood: unable to obtain Affect: unable to obtain Thought Process: unable to assess Thought Content: no gestures of SI/HI's. He appeared to be responding to external stimuli, calling names of people and yelling. Motor Activity: sitting up in bed Cognition: A/O x1 Insight: limited Judgment: limited Assessment and Plan Impression: Dementia with behavioral disturbances. Today patient is calm and confused during the assessment. No side effects noted of his medications. Recommendation/Plan: Discontinue seroquel due to concerns with unsteady gait and risk of hypotension. current medication regimen (Zoloft and Risperdal) that was started at [place] prior to his admission to [facility]. Increase risperdal to 0.5mg am, afternoon, and 1mg hs. Patient is pending placement. Will assess patient daily. Recommend the following below: 1. Frequently reorient patient and involve him/her in their care (simple explanations of procedures, tests, medications). 2. Lights on and shades open during daytime hours. 3. Try to avoid unnecessary interruptions to sleep during nighttime hours. 4. Obtain glasses, hearing aids from home if patient uses these at baseline. 5. Avoid medications that may exacerbate delirium (especially narcotics, benzodiazepines, barbiturates, ambien, lunesta, and medications with excessive anticholinergic properties). 6. Recommend Haldol 2 mg IM Q6hrs PRN for acute agitation. 7. Recommend 1:1 sitter for safety.
[2017-10-12] MEDS ORDERED: RisperDAL PO SCH (22:00)
[2017-10-12] MEDS: SENOKOT S PO SCH (22:16)
[2017-10-13] MEDS: ZOSYN/NS 3.375GM/50ML 3.375 GM/50 ML BAG IV SCH ×3 (02:50→19:08)
[2017-10-13] MEDS: PROTONIX PO SCH (10:45)
[2017-10-13] MEDS: ZOLOFT PO SCH (10:45)
[2017-10-13] MEDS: LOVENOX SUB-Q SCH (10:45)
[2017-10-13] MEDS: NACL 0.9% 1000 ML 1,000 ML IV SCH (10:47)
[2017-10-13] MEDS: RisperDAL PO SCH ×2 (10:51→16:17)
--- NOTE | 2017-10-13 12:00 | Progress Note ---
Assessment and Plan Assessment and plan: Patient is a 72-year-old man with history of dementia, GERD, peptic ulcer disorder and kidney stones who [facility] to [facility] ED with altered mental status and behavioral issues. He was noted to be aggressive. Wandering into other patient's rooms. Being aggressive with staff members. Refusing to take his medications. Therefore he was sent to [facility] inpatient [facility] unit. Unfortunately while he was there he was more agitated, refusing his medications, he was noted to have projectile vomiting, nonstop vomiting. Acute metabolic encephalopathy, POA, due to worsening chronic medical condition Treat conservatively SIRS UTI and sepsis ruled out blood and urine cx neg, dc abx Dementia with behavioral disturbance optimize behavioral meds Projectile vomiting/refusal to swallow resolved, tolerating PO, GI=> no further workup indicated GERD/history of peptic ulcer disease PPI Dispo: needs placement, will have to have Level 2 due to psych hx History Interval history: Patient was seen and examined. Follow-up on current diagnosis. Overnight uneventful. Patient mumbles, yells and curses on occasions. Imaging, nursing note, chart, labs and old chart reviewed. Discussed with patient. Hospitalist Physical - Physical exam Narrative exam: General: Disheveled HEENT: Moist mucous membranes, extraocular muscles intact, no lymphadenopathy Neck: supple Cardiac: normal S1-S2 and rrr Lungs: clear to auscultation bilaterally Abdomen: soft , nontender, nondistended, bowel sounds positive Extremities: no edema clubbing or cyanosis Skin: no rash or lesions Neurologic: Moves all extremities Psych: Patient is clearly confused, - Constitutional Vitals: Temp Pulse Resp BP Pulse Ox 97.2 F L 82 18 129/77 98 10/13/17 07:34 10/13/17 07:34 10/13/17 07:34 10/13/17 07:34 10/13/17 07:34 Results - Labs CBC & Chem 7: 10/06/17 03:38 10/06/17 03:38 Labs: Laboratory Last Values WBC 13.3 K/mm3 (4.5-11.0) H 10/06/17 03:38 RBC 5.49 M/mm3 (3.65-5.03) H 10/06/17 03:38 Hgb 17.4 gm/dl (11.8-15.2) H 10/06/17 03:38 Hct 51.9 % (35.5-45.6) H D 10/06/17 03:38 MCV 95 fl (84-94) H 10/06/17 03:38 MCH 32 pg (28-32) 10/06/17 03:38 MCHC 34 % (32-34) 10/06/17 03:38 RDW 14.1 % (13.2-15.2) 10/06/17 03:38 Plt Count 184 K/mm3 (140-440) 10/06/17 03:38 Lymph % (Auto) 14.5 % (13.4-35.0) 10/06/17 03:38 [place] % (Auto) 9.3 % (0.0-7.3) H 10/06/17 03:38 Eos % (Auto) 0.2 % (0.0-4.3) 10/06/17 03:38 Baso % (Auto) 0.3 % (0.0-1.8) 10/06/17 03:38 Lymph # 1.9 K/mm3 (1.2-5.4) 10/06/17 03:38 [place] # 1.2 K/mm3 (0.0-0.8) H 10/06/17 03:38 Eos # 0.0 K/mm3 (0.0-0.4) 10/06/17 03:38 Baso # 0.0 K/mm3 (0.0-0.1) 10/06/17 03:38 Add Manual Diff Complete 10/04/17 22:06 Total Counted 100 10/04/17 22:06 Seg Neutrophils % 75.7 % (40.0-70.0) H 10/06/17 03:38 Seg Neuts % (Manual) 87.0 % (40.0-70.0) H 10/04/17 22:06 Band Neutrophils % 4.0 % 10/04/17 22:06 Lymphocytes % (Manual) 3.0 % (13.4-35.0) L 10/04/17 22:06 Reactive Lymphs % (Man) 0 % 10/04/17 22:06 Monocytes % (Manual) 6.0 % (0.0-7.3) 10/04/17 22:06 Eosinophils % (Manual) 0 % (0.0-4.3) 10/04/17 22:06 Basophils % (Manual) 0 % (0.0-1.8) 10/04/17 22:06 Metamyelocytes % 0 % 10/04/17 22:06 Myelocytes % 0 % 10/04/17 22:06 Promyelocytes % 0 % 10/04/17 22:06 Blast Cells % 0 % 10/04/17 22:06 Nucleated RBC % Not Reportable 10/04/17 22:06 Seg Neutrophils # 10.0 K/mm3 (1.8-7.7) H 10/06/17 03:38 Seg Neutrophils # Man 19.6 K/mm3 (1.8-7.7) H 10/04/17 22:06 Band Neutrophils # 0.9 K/mm3 10/04/17 22:06 Lymphocytes # (Manual) 0.7 K/mm3 (1.2-5.4) L 10/04/17 22:06 Abs React Lymphs (Man) 0.0 K/mm3 10/04/17 22:06 Monocytes # (Manual) 1.4 K/mm3 (0.0-0.8) H 10/04/17 22:06 Eosinophils # (Manual) 0.0 K/mm3 (0.0-0.4) 10/04/17 22:06 Basophils # (Manual) 0.0 K/mm3 (0.0-0.1) 10/04/17 22:06 Metamyelocytes # 0.0 K/mm3 10/04/17 22:06 Myelocytes # 0.0 K/mm3 10/04/17 22:06 Promyelocytes # 0.0 K/mm3 10/04/17 22:06 Blast Cells # 0.0 K/mm3 10/04/17 22:06 WBC Morphology Not Reportable 10/04/17 22:06 Hypersegmented Neuts Not Reportable 10/04/17 22:06 Hyposegmented Neuts Not Reportable 10/04/17 22:06 Hypogranular Neuts Not Reportable 10/04/17 22:06 Smudge Cells Not Reportable 10/04/17 22:06 Toxic Granulation Not Reportable 10/04/17 22:06 Toxic Vacuolation Not Reportable 10/04/17 22:06 Dohle Bodies Not Reportable 10/04/17 22:06 Pelger-Huet Anomaly Not Reportable 10/04/17 22:06 Javier Rods Not Reportable 10/04/17 22:06 Platelet Estimate Appears normal 10/04/17 22:06 Clumped Platelets Not Reportable 10/04/17 22:06 Plt Clumps, EDTA Not Reportable 10/04/17 22:06 Large Platelets Not Reportable 10/04/17 22:06 Giant Platelets Not Reportable 10/04/17 22:06 Platelet Satelliting Not Reportable 10/04/17 22:06 Plt Morphology Comment Not Reportable 10/04/17 22:06 RBC Morphology Normal 10/04/17 22:06 Dimorphic RBCs Not Reportable 10/04/17 22:06 Polychromasia Not Reportable 10/04/17 22:06 Hypochromasia Not Reportable 10/04/17 22:06 Poikilocytosis Not Reportable 10/04/17 22:06 Anisocytosis Not Reportable 10/04/17 22:06 Microcytosis Not Reportable 10/04/17 22:06 Macrocytosis Not Reportable 10/04/17 22:06 Spherocytes Not Reportable 10/04/17 22:06 Pappenheimer Bodies Not Reportable 10/04/17 22:06 Sickle Cells Not Reportable 10/04/17 22:06 Target Cells Not Reportable 10/04/17 22:06 Tear Drop Cells Not Reportable 10/04/17 22:06 Ovalocytes Not Reportable 10/04/17 22:06 Helmet Cells Not Reportable 10/04/17 22:06 [place] Bodies Not Reportable 10/04/17 22:06 [place] Rings Not Reportable 10/04/17 22:06 [place] Cells Not Reportable 10/04/17 22:06 Bite Cells Not Reportable 10/04/17 22:06 Crenated Cell Not Reportable 10/04/17 22:06 Elliptocytes Not Reportable 10/04/17 22:06 Acanthocytes (Spur) Not Reportable 10/04/17 22:06 Rouleaux Not Reportable 10/04/17 22:06 Hemoglobin C Crystals Not Reportable 10/04/17 22:06 Schistocytes Not Reportable 10/04/17 22:06 Malaria parasites Not Reportable 10/04/17 22:06 Donis Bodies Not Reportable 10/04/17 22:06 Hem Pathologist Commnt No 10/04/17 22:06 Sodium 136 mmol/L (137-145) L 10/06/17 03:38 Potassium 4.3 mmol/L (3.6-5.0) 10/06/17 03:38 Chloride 99.2 mmol/L (98-107) 10/06/17 03:38 Carbon Dioxide 24 mmol/L (22-30) 10/06/17 03:38 Anion Gap 17 mmol/L 10/06/17 03:38 BUN 20 mg/dL (9-20) 10/06/17 03:38 Creatinine 0.9 mg/dL (0.8-1.5) 10/06/17 03:38 Estimated GFR > 60 ml/min 10/06/17 03:38 BUN/Creatinine Ratio 22 % 10/06/17 03:38 Glucose 101 mg/dL (75-100) H 10/06/17 03:38 POC Glucose 132 (70-105) H 10/12/17 12:41 Lactic Acid 3.40 mmol/L (0.7-2.0) H* 10/04/17 22:52 Calcium 8.2 mg/dL (8.4-10.2) L 10/06/17 03:38 Total Bilirubin 1.70 mg/dL (0.1-1.2) H 10/04/17 22:06 AST 19 units/L (5-40) 10/04/17 22:06 ALT 19 units/L (7-56) 10/04/17 22:06 Alkaline Phosphatase 91 units/L (35-129) 10/04/17 22:06 Total Creatine Kinase 503 units/L (55-170) H 10/05/17 15:01 CK-MB (CK-2) 3.1 ng/mL (0.0-4.0) 10/05/17 15:01 CK-MB (CK-2) Rel Index 0.6 (0-4) 10/05/17 15:01 Troponin T 0.018 ng/mL (0.00-0.029) 10/05/17 15:01 Total Protein 6.7 g/dL (6.3-8.2) 10/04/17 22:06 Albumin 3.9 g/dL (3.9-5) 10/04/17 22:06 Albumin/Globulin Ratio 1.4 % 10/04/17 22:06 Lipase 46 units/L (13-60) 10/04/17 22:06 Urine Color Yellow (Yellow) 10/05/17 Unknown Urine Turbidity Clear (Clear) 10/05/17 Unknown Urine pH 8.0 (5.0-7.0) H 10/05/17 Unknown Ur Specific [place] 1.038 (1.003-1.030) H 10/05/17 Unknown Urine Protein 30 mg/dl mg/dL (Negative) 10/05/17 Unknown Urine Glucose (UA) Neg mg/dL (Negative) 10/05/17 Unknown Urine Ketones Neg mg/dL (Negative) 10/05/17 Unknown Urine Blood Mod (Negative) 10/05/17 Unknown Urine Nitrite Neg (Negative) 10/05/17 Unknown Urine Bilirubin Neg (Negative) 10/05/17 Unknown Urine Urobilinogen < 2.0 mg/dL (<2.0) 10/05/17 Unknown Ur Leukocyte Esterase Sm (Negative) 10/05/17 Unknown Urine WBC (Auto) 26.0 /HPF (0.0-6.0) H 10/05/17 Unknown Urine RBC (Auto) 120.0 /HPF (0.0-6.0) 10/05/17 Unknown Urine Mucus Few /HPF 10/05/17 Unknown
[2017-10-13] MEDS: HALDOL IM PRN ×2 (12:30→23:38)
[2017-10-13] MEDS ORDERED: RisperDAL PO SCH (15:00)
--- NOTE | 2017-10-13 18:01 | Progress Note ---
Subjective - Reason for Consult Consult date: 10/13/17 Reason for consult: follow up - Chief Complaint Chief complaint: "Go get that over there." 72-year-old white male with a hx of dementia, GERD, gastric ulcers was sent to the emergency room from [place] because he was confused and agitated episodes of N/V. Today patient is naked, agitated, and not coherent. Staff report he is responding to people who are not there. He asked the nurse for meth yesterday. He is on fall precautions. No gestures of SI/HI's. He has been drinking ensure. He is not sleeping well per staff. Seroquel was discontinued yesterday due to concerns with falls. Risperdal was increased to 0.5mg/0.5mg/1mg. Staff have given him PRN haldol. The nurse crushes his medication and gives it in applesauce. Mental Status Exam - Vital signs Last Vital Signs Temp 97.1 F L 10/13/17 15:39 Pulse 82 10/13/17 07:34 Resp 20 10/13/17 15:39 BP 112/56 10/13/17 15:39 Pulse Ox 98 10/13/17 07:34 - Exam Narrative exam: MSE: Appearance: naked and grabbing self Behavior: looking around the room Speech: loud Mood: unable to obtain Affect: unable to obtain Thought Process: unable to assess Thought Content: no gestures of SI/HI's. He appeared to be responding to external stimuli, calling names of people and yelling. Motor Activity: lying in bed Cognition: not oriented Insight: none Judgment: none Assessment and Plan Impression: Dementia with behavioral disturbances. Today patient is agitated and confused during the assessment. No side effects noted of his medications. Cannot rule out substance induced psychosis. No tox screen was available on admission. Recommendation/Plan: discontinue risperdal and start scheduled haldol 2mg tid for agitation. Patient is pending placement. Will assess patient daily. Recommend the following below: 1. Frequently reorient patient and involve him/her in their care (simple explanations of procedures, tests, medications). 2. Lights on and shades open during daytime hours. 3. Try to avoid unnecessary interruptions to sleep during nighttime hours. 4. Obtain glasses, hearing aids from home if patient uses these at baseline. 5. Avoid medications that may exacerbate delirium (especially narcotics, benzodiazepines, barbiturates, ambien, lunesta, and medications with excessive anticholinergic properties). 8. Recommend 1:1 sitter for safety.
[2017-10-13] MEDS: HALDOL PO SCH (22:37)
[2017-10-13] MEDS: SENOKOT S PO SCH (22:40)
[2017-10-14 06:59] LABS: Hematocrit 46.2 % (35.5-45.6); Hemoglobin 15.8 gm/dl (11.8-15.2); Mean Corpuscular HGB Conc 34 % (32-34); Mean Corpuscular Hemoglobin 31 pg (28-32); Mean Corpuscular Volume 91 fl (84-94); Platelet Count 372 K/mm3 (140-440); Red Blood Count 5.08 M/mm3 (3.65-5.03); Red Cell Distribution Width 14.3 % (13.2-15.2); White Blood Count 5.6 K/mm3 (4.5-11.0)
[2017-10-14 07:13] LABS: Anion Gap 17 mmol/L; BUN/Creatinine Ratio 18; Blood Urea Nitrogen 9 mg/dL (9-20); Calcium 8.8 mg/dL (8.4-10.2); Carbon Dioxide 19 mmol/L (22-30); Chloride 104.7 mmol/L (98-107); Glucose 102 mg/dL (75-100); Potassium 3.9 mmol/L (3.6-5.0); Sodium 137 mmol/L (137-145)
[2017-10-14] MEDS: HALDOL PO SCH (08:28)
[2017-10-14] MEDS: ZOLOFT PO SCH (09:40)
[2017-10-14] MEDS: PROTONIX PO SCH (09:40)
[2017-10-14] MEDS: LOVENOX SUB-Q SCH (09:40)
[2017-10-14] MEDS: ZOSYN/NS 3.375GM/50ML 3.375 GM/50 ML BAG IV SCH ×2 (10:36→12:00)
--- NOTE | 2017-10-14 10:39 | Progress Note ---
Assessment and Plan Assessment and plan: Patient is a 72-year-old man with history of dementia, GERD, peptic ulcer disorder and kidney stones [facility] ED with altered mental status and behavioral issues. He was noted to be aggressive. Wandering into other patient's rooms. Being aggressive with staff members. Refusing to take his medications. Therefore he was sent to [facility] inpatient psychiatric unit. Unfortunately while he was there he was more agitated, refusing his medications, he was noted to have projectile vomiting, nonstop vomiting. Acute metabolic encephalopathy, POA, due to worsening chronic medical condition Treat conservatively SIRS UTI and sepsis ruled out blood and urine cx neg, dc abx Dementia with behavioral disturbance optimize behavioral meds Projectile vomiting/refusal to swallow resolved, tolerating PO, GI=> no further workup indicated GERD/history of peptic ulcer disease PPI Dispo: needs placement, level 2 cleared, just waiting on placement Changed haldol back to Risperdal History Interval history: Patient was seen and examined. Follow-up on current diagnosis. Overnight uneventful. Patient mumbles, yells and curses on occasions. Imaging, nursing note, chart, labs and old chart reviewed. Agitation worse after Risperdal change to around the clock Haldol. Hospitalist Physical - Physical exam Narrative exam: General: Disheveled HEENT: Moist mucous membranes, extraocular muscles intact, no lymphadenopathy Neck: supple Cardiac: normal S1-S2 and rrr Lungs: clear to auscultation bilaterally Abdomen: soft , nontender, nondistended, bowel sounds positive Extremities: no edema clubbing or cyanosis Skin: no rash or lesions Neurologic: Moves all extremities Psych: Patient is clearly confused, - Constitutional Vitals: Temp Pulse Resp BP Pulse Ox 97.8 F 60 18 129/73 96 10/14/17 08:17 10/14/17 08:17 10/14/17 08:17 10/14/17 08:17 10/14/17 08:17 Results - Labs CBC & Chem 7: 10/14/17 06:37 10/14/17 06:37 Labs: Laboratory Last Values WBC 5.6 K/mm3 (4.5-11.0) 10/14/17 06:37 RBC 5.08 M/mm3 (3.65-5.03) H 10/14/17 06:37 Hgb 15.8 gm/dl (11.8-15.2) H 10/14/17 06:37 Hct 46.2 % (35.5-45.6) H 10/14/17 06:37 MCV 91 fl (84-94) 10/14/17 06:37 MCH 31 pg (28-32) 10/14/17 06:37 MCHC 34 % (32-34) 10/14/17 06:37 RDW 14.3 % (13.2-15.2) 10/14/17 06:37 Plt Count 372 K/mm3 (140-440) 10/14/17 06:37 Lymph % (Auto) 14.5 % (13.4-35.0) 10/06/17 03:38 [place] % (Auto) 9.3 % (0.0-7.3) H 10/06/17 03:38 Eos % (Auto) 0.2 % (0.0-4.3) 10/06/17 03:38 Baso % (Auto) 0.3 % (0.0-1.8) 10/06/17 03:38 Lymph # 1.9 K/mm3 (1.2-5.4) 10/06/17 03:38 [place] # 1.2 K/mm3 (0.0-0.8) H 10/06/17 03:38 Eos # 0.0 K/mm3 (0.0-0.4) 10/06/17 03:38 Baso # 0.0 K/mm3 (0.0-0.1) 10/06/17 03:38 Add Manual Diff Complete 10/04/17 22:06 Total Counted 100 10/04/17 22:06 Seg Neutrophils % 75.7 % (40.0-70.0) H 10/06/17 03:38 Seg Neuts % (Manual) 87.0 % (40.0-70.0) H 10/04/17 22:06 Band Neutrophils % 4.0 % 10/04/17 22:06 Lymphocytes % (Manual) 3.0 % (13.4-35.0) L 10/04/17 22:06 Reactive Lymphs % (Man) 0 % 10/04/17 22:06 Monocytes % (Manual) 6.0 % (0.0-7.3) 10/04/17 22:06 Eosinophils % (Manual) 0 % (0.0-4.3) 10/04/17 22:06 Basophils % (Manual) 0 % (0.0-1.8) 10/04/17 22:06 Metamyelocytes % 0 % 10/04/17 22:06 Myelocytes % 0 % 10/04/17 22:06 Promyelocytes % 0 % 10/04/17 22:06 Blast Cells % 0 % 10/04/17 22:06 Nucleated RBC % Not Reportable 10/04/17 22:06 Seg Neutrophils # 10.0 K/mm3 (1.8-7.7) H 10/06/17 03:38 Seg Neutrophils # Man 19.6 K/mm3 (1.8-7.7) H 10/04/17 22:06 Band Neutrophils # 0.9 K/mm3 10/04/17 22:06 Lymphocytes # (Manual) 0.7 K/mm3 (1.2-5.4) L 10/04/17 22:06 Abs React Lymphs (Man) 0.0 K/mm3 10/04/17 22:06 Monocytes # (Manual) 1.4 K/mm3 (0.0-0.8) H 10/04/17 22:06 Eosinophils # (Manual) 0.0 K/mm3 (0.0-0.4) 10/04/17 22:06 Basophils # (Manual) 0.0 K/mm3 (0.0-0.1) 10/04/17 22:06 Metamyelocytes # 0.0 K/mm3 10/04/17 22:06 Myelocytes # 0.0 K/mm3 10/04/17 22:06 Promyelocytes # 0.0 K/mm3 10/04/17 22:06 Blast Cells # 0.0 K/mm3 10/04/17 22:06 WBC Morphology Not Reportable 10/04/17 22:06 Hypersegmented Neuts Not Reportable 10/04/17 22:06 Hyposegmented Neuts Not Reportable 10/04/17 22:06 Hypogranular Neuts Not Reportable 10/04/17 22:06 Smudge Cells Not Reportable 10/04/17 22:06 Toxic Granulation Not Reportable 10/04/17 22:06 Toxic Vacuolation Not Reportable 10/04/17 22:06 Dohle Bodies Not Reportable 10/04/17 22:06 Pelger-Huet Anomaly Not Reportable 10/04/17 22:06 Javier Rods Not Reportable 10/04/17 22:06 Platelet Estimate Appears normal 10/04/17 22:06 Clumped Platelets Not Reportable 10/04/17 22:06 Plt Clumps, EDTA Not Reportable 10/04/17 22:06 Large Platelets Not Reportable 10/04/17 22:06 Giant Platelets Not Reportable 10/04/17 22:06 Platelet Satelliting Not Reportable 10/04/17 22:06 Plt Morphology Comment Not Reportable 10/04/17 22:06 RBC Morphology Normal 10/04/17 22:06 Dimorphic RBCs Not Reportable 10/04/17 22:06 Polychromasia Not Reportable 10/04/17 22:06 Hypochromasia Not Reportable 10/04/17 22:06 Poikilocytosis Not Reportable 10/04/17 22:06 Anisocytosis Not Reportable 10/04/17 22:06 Microcytosis Not Reportable 10/04/17 22:06 Macrocytosis Not Reportable 10/04/17 22:06 Spherocytes Not Reportable 10/04/17 22:06 Pappenheimer Bodies Not Reportable 10/04/17 22:06 Sickle Cells Not Reportable 10/04/17 22:06 Target Cells Not Reportable 10/04/17 22:06 Tear Drop Cells Not Reportable 10/04/17 22:06 Ovalocytes Not Reportable 10/04/17 22:06 Helmet Cells Not Reportable 10/04/17 22:06 [place] Bodies Not Reportable 10/04/17 22:06 [place] Rings Not Reportable 10/04/17 22:06 [place] Cells Not Reportable 10/04/17 22:06 Bite Cells Not Reportable 10/04/17 22:06 Crenated Cell Not Reportable 10/04/17 22:06 Elliptocytes Not Reportable 10/04/17 22:06 Acanthocytes (Spur) Not Reportable 10/04/17 22:06 Rouleaux Not Reportable 10/04/17 22:06 Hemoglobin C Crystals Not Reportable 10/04/17 22:06 Schistocytes Not Reportable 10/04/17 22:06 Malaria parasites Not Reportable 10/04/17 22:06 Donis Bodies Not Reportable 10/04/17 22:06 Hem Pathologist Commnt No 10/04/17 22:06 Sodium 137 mmol/L (137-145) 10/14/17 06:37 Potassium 3.9 mmol/L (3.6-5.0) 10/14/17 06:37 Chloride 104.7 mmol/L (98-107) 10/14/17 06:37 Carbon Dioxide 19 mmol/L (22-30) L 10/14/17 06:37 Anion Gap 17 mmol/L 10/14/17 06:37 BUN 9 mg/dL (9-20) 10/14/17 06:37 Creatinine 0.5 mg/dL (0.8-1.5) L 10/14/17 06:37 Estimated GFR > 60 ml/min 10/14/17 06:37 BUN/Creatinine Ratio 18 % 10/14/17 06:37 Glucose 102 mg/dL (75-100) H 10/14/17 06:37 POC Glucose 132 (70-105) H 10/12/17 12:41 Lactic Acid 3.40 mmol/L (0.7-2.0) H* 10/04/17 22:52 Calcium 8.8 mg/dL (8.4-10.2) 10/14/17 06:37 Total Bilirubin 1.70 mg/dL (0.1-1.2) H 10/04/17 22:06 AST 19 units/L (5-40) 10/04/17 22:06 ALT 19 units/L (7-56) 10/04/17 22:06 Alkaline Phosphatase 91 units/L (35-129) 10/04/17 22:06 Total Creatine Kinase 503 units/L (55-170) H 10/05/17 15:01 CK-MB (CK-2) 3.1 ng/mL (0.0-4.0) 10/05/17 15:01 CK-MB (CK-2) Rel Index 0.6 (0-4) 10/05/17 15:01 Troponin T 0.018 ng/mL (0.00-0.029) 10/05/17 15:01 Total Protein 6.7 g/dL (6.3-8.2) 10/04/17 22:06 Albumin 3.9 g/dL (3.9-5) 10/04/17 22:06 Albumin/Globulin Ratio 1.4 % 10/04/17 22:06 Lipase 46 units/L (13-60) 10/04/17 22:06 Urine Color Yellow (Yellow) 10/05/17 Unknown Urine Turbidity Clear (Clear) 10/05/17 Unknown Urine pH 8.0 (5.0-7.0) H 10/05/17 Unknown Ur Specific [place] 1.038 (1.003-1.030) H 10/05/17 Unknown Urine Protein 30 mg/dl mg/dL (Negative) 10/05/17 Unknown Urine Glucose (UA) Neg mg/dL (Negative) 10/05/17 Unknown Urine Ketones Neg mg/dL (Negative) 10/05/17 Unknown Urine Blood Mod (Negative) 10/05/17 Unknown Urine Nitrite Neg (Negative) 10/05/17 Unknown Urine Bilirubin Neg (Negative) 10/05/17 Unknown Urine Urobilinogen < 2.0 mg/dL (<2.0) 10/05/17 Unknown Ur Leukocyte Esterase Sm (Negative) 10/05/17 Unknown Urine WBC (Auto) 26.0 /HPF (0.0-6.0) H 10/05/17 Unknown Urine RBC (Auto) 120.0 /HPF (0.0-6.0) 10/05/17 Unknown Urine Mucus Few /HPF 10/05/17 Unknown
--- NOTE | 2017-10-14 11:23 | Progress Note ---
Subjective - Reason for Consult Consult date: 10/14/17 Reason for consult: Psychiatry Follow-up - Chief Complaint Chief complaint: 'Hello" 72-year-old white male with a hx of dementia, GERD, gastric ulcers was sent to the emergency room from [place] because he was confused and agitated episodes of N/V. Today patient is calm during the assessment, but confused. Per his assigned RN, the patient did not sleep last night and she stated that his appetite has decreased. No gestures of SI/HI's. Mental Status Exam - Vital signs Last Vital Signs Temp 97.8 F 10/14/17 08:17 Pulse 60 10/14/17 08:17 Resp 18 10/14/17 08:17 BP 129/73 10/14/17 08:17 Pulse Ox 96 10/14/17 08:17 - Exam Narrative exam: MSE: Appearance: calm Behavior: regular eye contact Speech: regular rate and tone Mood: "okay" Affect: congruent to mood Thought Process: unable to assess Thought Content: no gestures of SI/HI's and AVH's Motor Activity: sitting up in bed Cognition: A/O x1 Insight: limited Judgment: limited Assessment and Plan Impression: Dementia with behavioral disturbances. Today patient is calm during the assessment, but confused. Patient is not in restraints. No side effects noted of his medications. Recommendation/Plan: Recommend Haldol 2 mg PO TID for the agitation. Start Remeron 15 mg PO HS for sleep consolidation. Remeron may stimulate the patient' s appetite. Continue Zoloft 50 mg PO Daily (started at [facility]). Patient is pending placement. Recommend the following below: 1. Frequently reorient patient and involve him/her in their care (simple explanations of procedures, tests, medications). 2. Lights on and shades open during daytime hours. 3. Try to avoid unnecessary interruptions to sleep during nighttime hours. 4. Obtain glasses, hearing aids from home if patient uses these at baseline. 5. Avoid medications that may exacerbate delirium (especially narcotics, benzodiazepines, barbiturates, ambien, lunesta, and medications with excessive anticholinergic properties). 6. Recommend Haldol 2 mg IM Q6hrs PRN for acute agitation. 7. Recommend 1:1 sitter for safety.
[2017-10-14] MEDS: NACL 0.9% 1000 ML 1,000 ML IV SCH (14:17)
[2017-10-14] MEDS: REMERON PO SCH (22:28)
[2017-10-14] MEDS: RisperDAL PO SCH (22:28)
[2017-10-14] MEDS: SENOKOT S PO SCH (22:29)
[2017-10-15] MEDS: PROTONIX PO SCH (09:23)
[2017-10-15] MEDS: LOVENOX SUB-Q SCH (09:23)
[2017-10-15] MEDS: ZOLOFT PO SCH (09:23)
[2017-10-15] MEDS: NACL 0.9% 1000 ML 1,000 ML IV SCH ×2 (09:28→21:47)
--- NOTE | 2017-10-15 09:59 | Progress Note ---
Subjective - Reason for Consult Consult date: 10/15/17 Reason for consult: Psychiatry Follow-up - Chief Complaint Chief complaint: "Yes" 72-year-old white male with a hx of dementia, GERD, gastric ulcers was sent to the emergency room from [place] because he was confused and agitated with episodes of N/V. Today patient is calm during the assessment, but confused. Per his assigned RN, no behavioral disturbance overnight. No gestures of SI/HI's. Mental Status Exam - Vital signs Last Vital Signs Temp 97.6 F 10/15/17 08:11 Pulse 80 10/15/17 08:11 Resp 16 10/15/17 08:11 BP 101/51 10/15/17 08:11 Pulse Ox 97 10/15/17 08:11 - Exam Narrative exam: MSE: Appearance: calm Behavior: regular eye contact Speech: regular rate and tone Mood: "okay" Affect: congruent to mood Thought Process: unable to assess Thought Content: no gestures of SI/HI's and AVH's Motor Activity: sitting up in bed Cognition: A/O x1 Insight: limited Judgment: limited Assessment and Plan Impression: Dementia with behavioral disturbances. Today patient is calm during the assessment, but confused. Patient is not in restraints. No side effects noted of his medications. Recommendation/Plan: Recommend Haldol 2 mg PO TID for the agitation. Continue Remeron 15 mg PO HS for sleep consolidation. Remeron may stimulate the patient' s appetite. Continue Zoloft 50 mg PO Daily (started at [facility]). Patient is pending placement. Recommend the following below: 1. Frequently reorient patient and involve him/her in their care (simple explanations of procedures, tests, medications). 2. Lights on and shades open during daytime hours. 3. Try to avoid unnecessary interruptions to sleep during nighttime hours. 4. Obtain glasses, hearing aids from home if patient uses these at baseline. 5. Avoid medications that may exacerbate delirium (especially narcotics, benzodiazepines, barbiturates, ambien, lunesta, and medications with excessive anticholinergic properties). 6. Recommend Haldol 2 mg IM Q6hrs PRN for acute agitation. 7. Recommend 1:1 sitter for safety.
[2017-10-15] MEDS: RisperDAL PO SCH ×2 (10:02→21:47)
[2017-10-15] MEDS ORDERED: RisperDAL PO SCH (10:30)
--- NOTE | 2017-10-15 11:04 | Progress Note ---
Assessment and Plan Assessment and plan: Patient is a 72-year-old man with history of dementia, GERD, peptic ulcer disorder and kidney stones who presented from the alf to [facility] ED with altered mental status and behavioral issues. He was noted to be aggressive. Wandering into other patient's rooms. Being aggressive with staff members. Refusing to take his medications. Therefore he was sent to [facility] inpatient psychiatric unit. Unfortunately while he was there he was more agitated, refusing his medications, he was noted to have projectile vomiting, nonstop vomiting. Acute metabolic encephalopathy, POA, due to worsening chronic medical condition Treat conservatively SIRS UTI and sepsis ruled out blood and urine cx neg, dc abx Dementia with behavioral disturbance optimize behavioral meds Projectile vomiting/refusal to swallow resolved, tolerating PO, GI=> no further workup indicated GERD/history of peptic ulcer disease PPI Dispo: needs placement, level 2 cleared, just waiting on placement Changed haldol back to Risperdal per Mental health [employer]ISHED [employer]WARE ERECTORSanti--> "Impression: Dementia with behavioral disturbances. Today patient is calm during the assessment, but confused. Patient is not in restraints. No side effects noted of his medications. Recommendation/Plan: Recommend Haldol 2 mg PO TID for the agitation. Continue Remeron 15 mg PO HS for sleep consolidation. Remeron may stimulate the patient' s appetite. Continue Zoloft 50 mg PO Daily (started at [facility]). Patient is pending placement. Recommend the following below: 1. Frequently reorient patient and involve him/her in their care (simple explanations of procedures, tests, medications). 2. Lights on and shades open during daytime hours. 3. Try to avoid unnecessary interruptions to sleep during nighttime hours. 4. Obtain glasses, hearing aids from home if patient uses these at baseline. 5. Avoid medications that may exacerbate delirium (especially narcotics, benzodiazepines, barbiturates, ambien, lunesta, and medications with excessive anticholinergic properties). 6. Recommend Haldol 2 mg IM Q6hrs PRN for acute agitation. 7. Recommend 1:1 sitter for safety." The Haldol 2mg tid was not effective, as evident by restraints being applied. Then I switched to Risperdal and no restraints but 1mg qam is to sedative, will decrease Risperdal to 0.5mg qam and 1mg qhs. History Interval history: Patient was seen and examined. Follow-up on current diagnosis. Overnight uneventful. Patient somnolent. Imaging, nursing note, chart, labs and old chart reviewed. Agitation worse after Risperdal change to around the clock Haldol. Hospitalist Physical - Physical exam Narrative exam: General: Disheveled, nad, somnolent but arousable. HEENT: Moist mucous membranes, extraocular muscles intact, no lymphadenopathy Neck: supple Cardiac: normal S1-S2 and rrr Lungs: clear to auscultation bilaterally Abdomen: soft , nontender, nondistended, bowel sounds positive Extremities: no edema clubbing or cyanosis Skin: no rash or lesions Neurologic: Moves all extremities Psych: Patient is clearly confused, - Constitutional Vitals: Temp Pulse Resp BP Pulse Ox 97.6 F 80 16 101/51 97 10/15/17 08:11 10/15/17 08:11 10/15/17 08:11 10/15/17 08:11 10/15/17 08:11 Results - Labs CBC & Chem 7: 10/14/17 06:37 10/14/17 06:37 Labs: Laboratory Last Values WBC 5.6 K/mm3 (4.5-11.0) 10/14/17 06:37 RBC 5.08 M/mm3 (3.65-5.03) H 10/14/17 06:37 Hgb 15.8 gm/dl (11.8-15.2) H 10/14/17 06:37 Hct 46.2 % (35.5-45.6) H 10/14/17 06:37 MCV 91 fl (84-94) 10/14/17 06:37 MCH 31 pg (28-32) 10/14/17 06:37 MCHC 34 % (32-34) 10/14/17 06:37 RDW 14.3 % (13.2-15.2) 10/14/17 06:37 Plt Count 372 K/mm3 (140-440) 10/14/17 06:37 Lymph % (Auto) 14.5 % (13.4-35.0) 10/06/17 03:38 Tripp % (Auto) 9.3 % (0.0-7.3) H 10/06/17 03:38 Eos % (Auto) 0.2 % (0.0-4.3) 10/06/17 03:38 Baso % (Auto) 0.3 % (0.0-1.8) 10/06/17 03:38 Lymph # 1.9 K/mm3 (1.2-5.4) 10/06/17 03:38 Tripp # 1.2 K/mm3 (0.0-0.8) H 10/06/17 03:38 Eos # 0.0 K/mm3 (0.0-0.4) 10/06/17 03:38 Baso # 0.0 K/mm3 (0.0-0.1) 10/06/17 03:38 Add Manual Diff Complete 10/04/17 22:06 Total Counted 100 10/04/17 22:06 Seg Neutrophils % 75.7 % (40.0-70.0) H 10/06/17 03:38 Seg Neuts % (Manual) 87.0 % (40.0-70.0) H 10/04/17 22:06 Band Neutrophils % 4.0 % 10/04/17 22:06 Lymphocytes % (Manual) 3.0 % (13.4-35.0) L 10/04/17 22:06 Reactive Lymphs % (Man) 0 % 10/04/17 22:06 Monocytes % (Manual) 6.0 % (0.0-7.3) 10/04/17 22:06 Eosinophils % (Manual) 0 % (0.0-4.3) 10/04/17 22:06 Basophils % (Manual) 0 % (0.0-1.8) 10/04/17 22:06 Metamyelocytes % 0 % 10/04/17 22:06 Myelocytes % 0 % 10/04/17 22:06 Promyelocytes % 0 % 10/04/17 22:06 Blast Cells % 0 % 10/04/17 22:06 Nucleated RBC % Not Reportable 10/04/17 22:06 Seg Neutrophils # 10.0 K/mm3 (1.8-7.7) H 10/06/17 03:38 Seg Neutrophils # Man 19.6 K/mm3 (1.8-7.7) H 10/04/17 22:06 Band Neutrophils # 0.9 K/mm3 10/04/17 22:06 Lymphocytes # (Manual) 0.7 K/mm3 (1.2-5.4) L 10/04/17 22:06 Abs React Lymphs (Man) 0.0 K/mm3 10/04/17 22:06 Monocytes # (Manual) 1.4 K/mm3 (0.0-0.8) H 10/04/17 22:06 Eosinophils # (Manual) 0.0 K/mm3 (0.0-0.4) 10/04/17 22:06 Basophils # (Manual) 0.0 K/mm3 (0.0-0.1) 10/04/17 22:06 Metamyelocytes # 0.0 K/mm3 10/04/17 22:06 Myelocytes # 0.0 K/mm3 10/04/17 22:06 Promyelocytes # 0.0 K/mm3 10/04/17 22:06 Blast Cells # 0.0 K/mm3 10/04/17 22:06 WBC Morphology Not Reportable 10/04/17 22:06 Hypersegmented Neuts Not Reportable 10/04/17 22:06 Hyposegmented Neuts Not Reportable 10/04/17 22:06 Hypogranular Neuts Not Reportable 10/04/17 22:06 Smudge Cells Not Reportable 10/04/17 22:06 Toxic Granulation Not Reportable 10/04/17 22:06 Toxic Vacuolation Not Reportable 10/04/17 22:06 Dohle Bodies Not Reportable 10/04/17 22:06 Pelger-Huet Anomaly Not Reportable 10/04/17 22:06 Javier Rods Not Reportable 10/04/17 22:06 Platelet Estimate Appears normal 10/04/17 22:06 Clumped Platelets Not Reportable 10/04/17 22:06 Plt Clumps, EDTA Not Reportable 10/04/17 22:06 Large Platelets Not Reportable 10/04/17 22:06 Giant Platelets Not Reportable 10/04/17 22:06 Platelet Satelliting Not Reportable 10/04/17 22:06 Plt Morphology Comment Not Reportable 10/04/17 22:06 RBC Morphology Normal 10/04/17 22:06 Dimorphic RBCs Not Reportable 10/04/17 22:06 Polychromasia Not Reportable 10/04/17 22:06 Hypochromasia Not Reportable 10/04/17 22:06 Poikilocytosis Not Reportable 10/04/17 22:06 Anisocytosis Not Reportable 10/04/17 22:06 Microcytosis Not Reportable 10/04/17 22:06 Macrocytosis Not Reportable 10/04/17 22:06 Spherocytes Not Reportable 10/04/17 22:06 Pappenheimer Bodies Not Reportable 10/04/17 22:06 Sickle Cells Not Reportable 10/04/17 22:06 Target Cells Not Reportable 10/04/17 22:06 Tear Drop Cells Not Reportable 10/04/17 22:06 Ovalocytes Not Reportable 10/04/17 22:06 Helmet Cells Not Reportable 10/04/17 22:06 [place]endar[place] Bodies Not Reportable 10/04/17 22:06 [place] Rings Not Reportable 10/04/17 22:06 Franc Cells Not Reportable 10/04/17 22:06 Bite Cells Not Reportable 10/04/17 22:06 Crenated Cell Not Reportable 10/04/17 22:06 Elliptocytes Not Reportable 10/04/17 22:06 Acanthocytes (Spur) Not Reportable 10/04/17 22:06 Rouleaux Not Reportable 10/04/17 22:06 Hemoglobin C Crystals Not Reportable 10/04/17 22:06 Schistocytes Not Reportable 10/04/17 22:06 Malaria parasites Not Reportable 10/04/17 22:06 Donis Bodies Not Reportable 10/04/17 22:06 Hem Pathologist Commnt No 10/04/17 22:06 Sodium 137 mmol/L (137-145) 10/14/17 06:37 Potassium 3.9 mmol/L (3.6-5.0) 10/14/17 06:37 Chloride 104.7 mmol/L (98-107) 10/14/17 06:37 Carbon Dioxide 19 mmol/L (22-30) L 10/14/17 06:37 Anion Gap 17 mmol/L 10/14/17 06:37 BUN 9 mg/dL (9-20) 10/14/17 06:37 Creatinine 0.5 mg/dL (0.8-1.5) L 10/14/17 06:37 Estimated GFR > 60 ml/min 10/14/17 06:37 BUN/Creatinine Ratio 18 % 10/14/17 06:37 Glucose 102 mg/dL (75-100) H 10/14/17 06:37 POC Glucose 132 (70-105) H 10/12/17 12:41 Lactic Acid 3.40 mmol/L (0.7-2.0) H* 10/04/17 22:52 Calcium 8.8 mg/dL (8.4-10.2) 10/14/17 06:37 Total Bilirubin 1.70 mg/dL (0.1-1.2) H 10/04/17 22:06 AST 19 units/L (5-40) 10/04/17 22:06 ALT 19 units/L (7-56) 10/04/17 22:06 Alkaline Phosphatase 91 units/L (35-129) 10/04/17 22:06 Total Creatine Kinase 503 units/L (55-170) H 10/05/17 15:01 CK-MB (CK-2) 3.1 ng/mL (0.0-4.0) 10/05/17 15:01 CK-MB (CK-2) Rel Index 0.6 (0-4) 10/05/17 15:01 Troponin T 0.018 ng/mL (0.00-0.029) 10/05/17 15:01 Total Protein 6.7 g/dL (6.3-8.2) 10/04/17 22:06 Albumin 3.9 g/dL (3.9-5) 10/04/17 22:06 Albumin/Globulin Ratio 1.4 % 10/04/17 22:06 Lipase 46 units/L (13-60) 10/04/17 22:06 Urine Color Yellow (Yellow) 10/05/17 Unknown Urine Turbidity Clear (Clear) 10/05/17 Unknown Urine pH 8.0 (5.0-7.0) H 10/05/17 Unknown Ur Specific [place] 1.038 (1.003-1.030) H 10/05/17 Unknown Urine Protein 30 mg/dl mg/dL (Negative) 10/05/17 Unknown Urine Glucose (UA) Neg mg/dL (Negative) 10/05/17 Unknown Urine Ketones Neg mg/dL (Negative) 10/05/17 Unknown Urine Blood Mod (Negative) 10/05/17 Unknown Urine Nitrite Neg (Negative) 10/05/17 Unknown Urine Bilirubin Neg (Negative) 10/05/17 Unknown Urine Urobilinogen < 2.0 mg/dL (<2.0) 10/05/17 Unknown Ur Leukocyte Esterase Sm (Negative) 10/05/17 Unknown Urine WBC (Auto) 26.0 /HPF (0.0-6.0) H 10/05/17 Unknown Urine RBC (Auto) 120.0 /HPF (0.0-6.0) 10/05/17 Unknown Urine Mucus Few /HPF 10/05/17 Unknown
[2017-10-15] MEDS: REMERON PO SCH (21:47)
[2017-10-15] MEDS: SENOKOT S PO SCH (21:47)
[2017-10-16] MEDS: ZOLOFT PO SCH (09:10)
[2017-10-16] MEDS: LOVENOX SUB-Q SCH (09:10)
[2017-10-16] MEDS: PROTONIX PO SCH (09:10)
[2017-10-16] MEDS: RisperDAL PO SCH ×2 (09:13→21:47)
--- NOTE | 2017-10-16 11:33 | Progress Note ---
Assessment and Plan Assessment and plan: Patient is a 72-year-old man with history of dementia, GERD, peptic ulcer disorder and kidney stones who presented from the alf to [facility] ED with altered mental status and behavioral issues. He was noted to be aggressive. Wandering into other patient's rooms. Being aggressive with staff members. Refusing to take his medications. Therefore he was sent to [place] inpatient psychiatric unit. Unfortunately while he was there he was more agitated, refusing his medications, he was noted to have projectile vomiting, nonstop vomiting. 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 Today patient is calm during the assessment, but confused. Patient is not in restraints. No side effects noted of his medications. Recommendation/Plan: Recommend Haldol 2 mg PO TID for the agitation. Continue Remeron 15 mg PO HS for sleep consolidation. Remeron may stimulate the patient' s appetite. Continue Zoloft 50 mg PO Daily (started at [facility]). Patient is pending placement. Recommend the following below: 1. Frequently reorient patient and involve him/her in their care (simple explanations of procedures, tests, medications). 2. Lights on and shades open during daytime hours. 3. Try to avoid unnecessary interruptions to sleep during nighttime hours. 4. Obtain glasses, hearing aids from home if patient uses these at baseline. 5. Avoid medications that may exacerbate delirium (especially narcotics, benzodiazepines, barbiturates, ambien, lunesta, and medications with excessive anticholinergic properties). 6. Recommend Haldol 2 mg IM Q6hrs PRN for acute agitation. 7. Recommend 1:1 sitter for safety." The Haldol 2mg tid was not effective, as evident by restraints being applied. Then I switched to Risperdal and no restraints but 1mg qam is to sedative, will decrease Risperdal to 0.5mg qam and 1mg qhs. 10/16/17: yesterday he slip out of bed and scraped his elbow, no head trauma. wound care saw today. today, he is the most cooperative I have seen, he worked with Physical therapy, he is unable to stand though. He is not in restraints currently, he is answering some question. Risperadal 0.5mg qam and 1mg qhs is working today. Still trying to find placement. He is medical cleared to go to placement History Interval history: Patient was seen and examined. Follow-up on current diagnosis. Overnight uneventful. Patient somnolent. Imaging, nursing note, chart, labs and old chart reviewed. Agitation worse after Risperdal change to around the clock Haldol. Hospitalist Physical - Physical exam Narrative exam: General: Disheveled, nad, somnolent but arousable. HEENT: Moist mucous membranes, extraocular muscles intact, no lymphadenopathy Neck: supple Cardiac: normal S1-S2 and rrr Lungs: clear to auscultation bilaterally Abdomen: soft , nontender, nondistended, bowel sounds positive Extremities: no edema clubbing or cyanosis Skin: no rash or lesions Neurologic: Moves all extremities Psych: Patient is clearly confused, - Constitutional Vitals: Temp Pulse Resp BP Pulse Ox 97.2 F L 85 20 109/74 100 10/16/17 07:26 10/16/17 07:26 10/16/17 07:26 10/16/17 07:26 10/16/17 07:26 Results - Labs CBC & Chem 7: 10/14/17 06:37 10/14/17 06:37 Labs: Laboratory Last Values WBC 5.6 K/mm3 (4.5-11.0) 10/14/17 06:37 RBC 5.08 M/mm3 (3.65-5.03) H 10/14/17 06:37 Hgb 15.8 gm/dl (11.8-15.2) H 10/14/17 06:37 Hct 46.2 % (35.5-45.6) H 10/14/17 06:37 MCV 91 fl (84-94) 10/14/17 06:37 MCH 31 pg (28-32) 10/14/17 06:37 MCHC 34 % (32-34) 10/14/17 06:37 RDW 14.3 % (13.2-15.2) 10/14/17 06:37 Plt Count 372 K/mm3 (140-440) 10/14/17 06:37 Lymph % (Auto) 14.5 % (13.4-35.0) 10/06/17 03:38 [place] % (Auto) 9.3 % (0.0-7.3) H 10/06/17 03:38 Eos % (Auto) 0.2 % (0.0-4.3) 10/06/17 03:38 Baso % (Auto) 0.3 % (0.0-1.8) 10/06/17 03:38 Lymph # 1.9 K/mm3 (1.2-5.4) 10/06/17 03:38 [place] # 1.2 K/mm3 (0.0-0.8) H 10/06/17 03:38 Eos # 0.0 K/mm3 (0.0-0.4) 10/06/17 03:38 Baso # 0.0 K/mm3 (0.0-0.1) 10/06/17 03:38 Add Manual Diff Complete 10/04/17 22:06 Total Counted 100 10/04/17 22:06 Seg Neutrophils % 75.7 % (40.0-70.0) H 10/06/17 03:38 Seg Neuts % (Manual) 87.0 % (40.0-70.0) H 10/04/17 22:06 Band Neutrophils % 4.0 % 10/04/17 22:06 Lymphocytes % (Manual) 3.0 % (13.4-35.0) L 10/04/17 22:06 Reactive Lymphs % (Man) 0 % 10/04/17 22:06 Monocytes % (Manual) 6.0 % (0.0-7.3) 10/04/17 22:06 Eosinophils % (Manual) 0 % (0.0-4.3) 10/04/17 22:06 Basophils % (Manual) 0 % (0.0-1.8) 10/04/17 22:06 Metamyelocytes % 0 % 10/04/17 22:06 Myelocytes % 0 % 10/04/17 22:06 Promyelocytes % 0 % 10/04/17 22:06 Blast Cells % 0 % 10/04/17 22:06 Nucleated RBC % Not Reportable 10/04/17 22:06 Seg Neutrophils # 10.0 K/mm3 (1.8-7.7) H 10/06/17 03:38 Seg Neutrophils # Man 19.6 K/mm3 (1.8-7.7) H 10/04/17 22:06 Band Neutrophils # 0.9 K/mm3 10/04/17 22:06 Lymphocytes # (Manual) 0.7 K/mm3 (1.2-5.4) L 10/04/17 22:06 Abs React Lymphs (Man) 0.0 K/mm3 10/04/17 22:06 Monocytes # (Manual) 1.4 K/mm3 (0.0-0.8) H 10/04/17 22:06 Eosinophils # (Manual) 0.0 K/mm3 (0.0-0.4) 10/04/17 22:06 Basophils # (Manual) 0.0 K/mm3 (0.0-0.1) 10/04/17 22:06 Metamyelocytes # 0.0 K/mm3 10/04/17 22:06 Myelocytes # 0.0 K/mm3 10/04/17 22:06 Promyelocytes # 0.0 K/mm3 10/04/17 22:06 Blast Cells # 0.0 K/mm3 10/04/17 22:06 WBC Morphology Not Reportable 10/04/17 22:06 Hypersegmented Neuts Not Reportable 10/04/17 22:06 Hyposegmented Neuts Not Reportable 10/04/17 22:06 Hypogranular Neuts Not Reportable 10/04/17 22:06 Smudge Cells Not Reportable 10/04/17 22:06 Toxic Granulation Not Reportable 10/04/17 22:06 Toxic Vacuolation Not Reportable 10/04/17 22:06 Dohle Bodies Not Reportable 10/04/17 22:06 Pelger-Huet Anomaly Not Reportable 10/04/17 22:06 Javier Rods Not Reportable 10/04/17 22:06 Platelet Estimate Appears normal 10/04/17 22:06 Clumped Platelets Not Reportable 10/04/17 22:06 Plt Clumps, EDTA Not Reportable 10/04/17 22:06 Large Platelets Not Reportable 10/04/17 22:06 Giant Platelets Not Reportable 10/04/17 22:06 Platelet Satelliting Not Reportable 10/04/17 22:06 Plt Morphology Comment Not Reportable 10/04/17 22:06 RBC Morphology Normal 10/04/17 22:06 Dimorphic RBCs Not Reportable 10/04/17 22:06 Polychromasia Not Reportable 10/04/17 22:06 Hypochromasia Not Reportable 10/04/17 22:06 Poikilocytosis Not Reportable 10/04/17 22:06 Anisocytosis Not Reportable 10/04/17 22:06 Microcytosis Not Reportable 10/04/17 22:06 Macrocytosis Not Reportable 10/04/17 22:06 Spherocytes Not Reportable 10/04/17 22:06 Pappenheimer Bodies Not Reportable 10/04/17 22:06 Sickle Cells Not Reportable 10/04/17 22:06 Target Cells Not Reportable 10/04/17 22:06 Tear Drop Cells Not Reportable 10/04/17 22:06 Ovalocytes Not Reportable 10/04/17 22:06 Helmet Cells Not Reportable 10/04/17 22:06 Armendariz-Level [place] Bodies Not Reportable 10/04/17 22:06 [place] Rings Not Reportable 10/04/17 22:06 [place] Cells Not Reportable 10/04/17 22:06 Bite Cells Not Reportable 10/04/17 22:06 Crenated Cell Not Reportable 10/04/17 22:06 Elliptocytes Not Reportable 10/04/17 22:06 Acanthocytes (Spur) Not Reportable 10/04/17 22:06 Rouleaux Not Reportable 10/04/17 22:06 Hemoglobin C Crystals Not Reportable 10/04/17 22:06 Schistocytes Not Reportable 10/04/17 22:06 Malaria parasites Not Reportable 10/04/17 22:06 Donis Bodies Not Reportable 10/04/17 22:06 Hem Pathologist Commnt No 10/04/17 22:06 Sodium 137 mmol/L (137-145) 10/14/17 06:37 Potassium 3.9 mmol/L (3.6-5.0) 10/14/17 06:37 Chloride 104.7 mmol/L (98-107) 10/14/17 06:37 Carbon Dioxide 19 mmol/L (22-30) L 10/14/17 06:37 Anion Gap 17 mmol/L 10/14/17 06:37 BUN 9 mg/dL (9-20) 10/14/17 06:37 Creatinine 0.5 mg/dL (0.8-1.5) L 10/14/17 06:37 Estimated GFR > 60 ml/min 10/14/17 06:37 BUN/Creatinine Ratio 18 % 10/14/17 06:37 Glucose 102 mg/dL (75-100) H 10/14/17 06:37 POC Glucose 132 (70-105) H 10/12/17 12:41 Lactic Acid 3.40 mmol/L (0.7-2.0) H* 10/04/17 22:52 Calcium 8.8 mg/dL (8.4-10.2) 10/14/17 06:37 Total Bilirubin 1.70 mg/dL (0.1-1.2) H 10/04/17 22:06 AST 19 units/L (5-40) 10/04/17 22:06 ALT 19 units/L (7-56) 10/04/17 22:06 Alkaline Phosphatase 91 units/L (35-129) 10/04/17 22:06 Total Creatine Kinase 503 units/L (55-170) H 10/05/17 15:01 CK-MB (CK-2) 3.1 ng/mL (0.0-4.0) 10/05/17 15:01 CK-MB (CK-2) Rel Index 0.6 (0-4) 10/05/17 15:01 Troponin T 0.018 ng/mL (0.00-0.029) 10/05/17 15:01 Total Protein 6.7 g/dL (6.3-8.2) 10/04/17 22:06 Albumin 3.9 g/dL (3.9-5) 10/04/17 22:06 Albumin/Globulin Ratio 1.4 % 10/04/17 22:06 Lipase 46 units/L (13-60) 10/04/17 22:06 Urine Color Yellow (Yellow) 10/05/17 Unknown Urine Turbidity Clear (Clear) 10/05/17 Unknown Urine pH 8.0 (5.0-7.0) H 10/05/17 Unknown Ur Specific [place] 1.038 (1.003-1.030) H 10/05/17 Unknown Urine Protein 30 mg/dl mg/dL (Negative) 10/05/17 Unknown Urine Glucose (UA) Neg mg/dL (Negative) 10/05/17 Unknown Urine Ketones Neg mg/dL (Negative) 10/05/17 Unknown Urine Blood Mod (Negative) 10/05/17 Unknown Urine Nitrite Neg (Negative) 10/05/17 Unknown Urine Bilirubin Neg (Negative) 10/05/17 Unknown Urine Urobilinogen < 2.0 mg/dL (<2.0) 10/05/17 Unknown Ur Leukocyte Esterase Sm (Negative) 10/05/17 Unknown Urine WBC (Auto) 26.0 /HPF (0.0-6.0) H 10/05/17 Unknown Urine RBC (Auto) 120.0 /HPF (0.0-6.0) 10/05/17 Unknown Urine Mucus Few /HPF 10/05/17 Unknown
[2017-10-16] MEDS: SENOKOT S PO SCH (21:47)
[2017-10-16] MEDS: REMERON PO SCH (21:47)
--- NOTE | 2017-10-17 10:11 | Progress Note ---
Assessment and Plan Assessment and plan: Patient is a 72-year-old man with history of dementia, GERD, peptic ulcer disorder and kidney stones who presented from the custodial to [facility] ED with altered mental status and behavioral issues. He was noted to be aggressive. Wandering into other patient's rooms. Being aggressive with staff members. Refusing to take his medications. Therefore he was sent to [place] inpatient psychiatric unit. Unfortunately while he was there he was more agitated, refusing his medications, he was noted to have projectile vomiting, nonstop vomiting. 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 Today patient is calm during the assessment, but confused. Patient is not in restraints. No side effects noted of his medications. Recommendation/Plan: Recommend Haldol 2 mg PO TID for the agitation. Continue Remeron 15 mg PO HS for sleep consolidation. Remeron may stimulate the patient' s appetite. Continue Zoloft 50 mg PO Daily (started at [facility]). Patient is pending placement. Recommend the following below: 1. Frequently reorient patient and involve him/her in their care (simple explanations of procedures, tests, medications). 2. Lights on and shades open during daytime hours. 3. Try to avoid unnecessary interruptions to sleep during nighttime hours. 4. Obtain glasses, hearing aids from home if patient uses these at baseline. 5. Avoid medications that may exacerbate delirium (especially narcotics, benzodiazepines, barbiturates, ambien, lunesta, and medications with excessive anticholinergic properties). 6. Recommend Haldol 2 mg IM Q6hrs PRN for acute agitation. 7. Recommend 1:1 sitter for safety." 10/15/17: The Haldol 2mg tid was not effective, as evident by restraints being applied. Then I switched to Risperdal and no restraints but 1mg qam is to sedative, will decrease Risperdal to 0.5mg qam and 1mg qhs. 10/16/17: yesterday he slip out of bed and scraped his elbow, no head trauma. wound care saw today. today, he is the most cooperative I have seen, he worked with Physical therapy, he is unable to stand though. He is not in restraints currently, he is answering some question. Risperadal 0.5mg qam and 1mg qhs is working today. Still trying to find placement. He is medical cleared to go to placement 10/17/17: He remains mentally stable and out of restraints. Waiting on placement History Interval history: Patient was seen and examined. Follow-up on current diagnosis. Overnight uneventful. Patient somnolent. Imaging, nursing note, chart, labs and old chart reviewed. Agitation worse after Risperdal change to around the clock Haldol. Hospitalist Physical - Physical exam Narrative exam: General: Disheveled, nad, awake alert confused but shook my hand HEENT: Moist mucous membranes, extraocular muscles intact, no lymphadenopathy Neck: supple Cardiac: normal S1-S2 and rrr Lungs: clear to auscultation bilaterally Abdomen: soft , nontender, nondistended, bowel sounds positive Extremities: no edema clubbing or cyanosis Skin: no rash or lesions Neurologic: Moves all extremities Psych: Patient is clearly confused - Constitutional Vitals: Temp Pulse Resp BP Pulse Ox 97.5 F L 73 18 119/76 99 10/17/17 07:27 10/17/17 07:27 10/17/17 07:27 10/17/17 07:27 10/17/17 07:27 Results - Labs CBC & Chem 7: 10/14/17 06:37 10/14/17 06:37 Labs: Laboratory Last Values WBC 5.6 K/mm3 (4.5-11.0) 10/14/17 06:37 RBC 5.08 M/mm3 (3.65-5.03) H 10/14/17 06:37 Hgb 15.8 gm/dl (11.8-15.2) H 10/14/17 06:37 Hct 46.2 % (35.5-45.6) H 10/14/17 06:37 MCV 91 fl (84-94) 10/14/17 06:37 MCH 31 pg (28-32) 10/14/17 06:37 MCHC 34 % (32-34) 10/14/17 06:37 RDW 14.3 % (13.2-15.2) 10/14/17 06:37 Plt Count 372 K/mm3 (140-440) 10/14/17 06:37 Lymph % (Auto) 14.5 % (13.4-35.0) 10/06/17 03:38 [place] % (Auto) 9.3 % (0.0-7.3) H 10/06/17 03:38 Eos % (Auto) 0.2 % (0.0-4.3) 10/06/17 03:38 Baso % (Auto) 0.3 % (0.0-1.8) 10/06/17 03:38 Lymph # 1.9 K/mm3 (1.2-5.4) 10/06/17 03:38 [place] # 1.2 K/mm3 (0.0-0.8) H 10/06/17 03:38 Eos # 0.0 K/mm3 (0.0-0.4) 10/06/17 03:38 Baso # 0.0 K/mm3 (0.0-0.1) 10/06/17 03:38 Add Manual Diff Complete 10/04/17 22:06 Total Counted 100 10/04/17 22:06 Seg Neutrophils % 75.7 % (40.0-70.0) H 10/06/17 03:38 Seg Neuts % (Manual) 87.0 % (40.0-70.0) H 10/04/17 22:06 Band Neutrophils % 4.0 % 10/04/17 22:06 Lymphocytes % (Manual) 3.0 % (13.4-35.0) L 10/04/17 22:06 Reactive Lymphs % (Man) 0 % 10/04/17 22:06 Monocytes % (Manual) 6.0 % (0.0-7.3) 10/04/17 22:06 Eosinophils % (Manual) 0 % (0.0-4.3) 10/04/17 22:06 Basophils % (Manual) 0 % (0.0-1.8) 10/04/17 22:06 Metamyelocytes % 0 % 10/04/17 22:06 Myelocytes % 0 % 10/04/17 22:06 Promyelocytes % 0 % 10/04/17 22:06 Blast Cells % 0 % 10/04/17 22:06 Nucleated RBC % Not Reportable 10/04/17 22:06 Seg Neutrophils # 10.0 K/mm3 (1.8-7.7) H 10/06/17 03:38 Seg Neutrophils # Man 19.6 K/mm3 (1.8-7.7) H 10/04/17 22:06 Band Neutrophils # 0.9 K/mm3 10/04/17 22:06 Lymphocytes # (Manual) 0.7 K/mm3 (1.2-5.4) L 10/04/17 22:06 Abs React Lymphs (Man) 0.0 K/mm3 10/04/17 22:06 Monocytes # (Manual) 1.4 K/mm3 (0.0-0.8) H 10/04/17 22:06 Eosinophils # (Manual) 0.0 K/mm3 (0.0-0.4) 10/04/17 22:06 Basophils # (Manual) 0.0 K/mm3 (0.0-0.1) 10/04/17 22:06 Metamyelocytes # 0.0 K/mm3 10/04/17 22:06 Myelocytes # 0.0 K/mm3 10/04/17 22:06 Promyelocytes # 0.0 K/mm3 10/04/17 22:06 Blast Cells # 0.0 K/mm3 10/04/17 22:06 WBC Morphology Not Reportable 10/04/17 22:06 Hypersegmented Neuts Not Reportable 10/04/17 22:06 Hyposegmented Neuts Not Reportable 10/04/17 22:06 Hypogranular Neuts Not Reportable 10/04/17 22:06 Smudge Cells Not Reportable 10/04/17 22:06 Toxic Granulation Not Reportable 10/04/17 22:06 Toxic Vacuolation Not Reportable 10/04/17 22:06 Dohle Bodies Not Reportable 10/04/17 22:06 Pelger-Huet Anomaly Not Reportable 10/04/17 22:06 Javier Rods Not Reportable 10/04/17 22:06 Platelet Estimate Appears normal 10/04/17 22:06 Clumped Platelets Not Reportable 10/04/17 22:06 Plt Clumps, EDTA Not Reportable 10/04/17 22:06 Large Platelets Not Reportable 10/04/17 22:06 Giant Platelets Not Reportable 10/04/17 22:06 Platelet Satelliting Not Reportable 10/04/17 22:06 Plt Morphology Comment Not Reportable 10/04/17 22:06 RBC Morphology Normal 10/04/17 22:06 Dimorphic RBCs Not Reportable 10/04/17 22:06 Polychromasia Not Reportable 10/04/17 22:06 Hypochromasia Not Reportable 10/04/17 22:06 Poikilocytosis Not Reportable 10/04/17 22:06 Anisocytosis Not Reportable 10/04/17 22:06 Microcytosis Not Reportable 10/04/17 22:06 Macrocytosis Not Reportable 10/04/17 22:06 Spherocytes Not Reportable 10/04/17 22:06 Pappenheimer Bodies Not Reportable 10/04/17 22:06 Sickle Cells Not Reportable 10/04/17 22:06 Target Cells Not Reportable 10/04/17 22:06 Tear Drop Cells Not Reportable 10/04/17 22:06 Ovalocytes Not Reportable 10/04/17 22:06 Helmet Cells Not Reportable 10/04/17 22:06 [place] Bodies Not Reportable 10/04/17 22:06 [place] Rings Not Reportable 10/04/17 22:06 Franc Cells Not Reportable 10/04/17 22:06 Bite Cells Not Reportable 10/04/17 22:06 Crenated Cell Not Reportable 10/04/17 22:06 Elliptocytes Not Reportable 10/04/17 22:06 Acanthocytes (Spur) Not Reportable 10/04/17 22:06 Rouleaux Not Reportable 10/04/17 22:06 Hemoglobin C Crystals Not Reportable 10/04/17 22:06 Schistocytes Not Reportable 10/04/17 22:06 Malaria parasites Not Reportable 10/04/17 22:06 Donis Bodies Not Reportable 10/04/17 22:06 Hem Pathologist Commnt No 10/04/17 22:06 Sodium 137 mmol/L (137-145) 10/14/17 06:37 Potassium 3.9 mmol/L (3.6-5.0) 10/14/17 06:37 Chloride 104.7 mmol/L (98-107) 10/14/17 06:37 Carbon Dioxide 19 mmol/L (22-30) L 10/14/17 06:37 Anion Gap 17 mmol/L 10/14/17 06:37 BUN 9 mg/dL (9-20) 10/14/17 06:37 Creatinine 0.5 mg/dL (0.8-1.5) L 10/14/17 06:37 Estimated GFR > 60 ml/min 10/14/17 06:37 BUN/Creatinine Ratio 18 % 10/14/17 06:37 Glucose 102 mg/dL (75-100) H 10/14/17 06:37 POC Glucose 132 (70-105) H 10/12/17 12:41 Lactic Acid 3.40 mmol/L (0.7-2.0) H* 10/04/17 22:52 Calcium 8.8 mg/dL (8.4-10.2) 10/14/17 06:37 Total Bilirubin 1.70 mg/dL (0.1-1.2) H 10/04/17 22:06 AST 19 units/L (5-40) 10/04/17 22:06 ALT 19 units/L (7-56) 10/04/17 22:06 Alkaline Phosphatase 91 units/L (35-129) 10/04/17 22:06 Total Creatine Kinase 503 units/L (55-170) H 10/05/17 15:01 CK-MB (CK-2) 3.1 ng/mL (0.0-4.0) 10/05/17 15:01 CK-MB (CK-2) Rel Index 0.6 (0-4) 10/05/17 15:01 Troponin T 0.018 ng/mL (0.00-0.029) 10/05/17 15:01 Total Protein 6.7 g/dL (6.3-8.2) 10/04/17 22:06 Albumin 3.9 g/dL (3.9-5) 10/04/17 22:06 Albumin/Globulin Ratio 1.4 % 10/04/17 22:06 Lipase 46 units/L (13-60) 10/04/17 22:06 Urine Color Yellow (Yellow) 10/05/17 Unknown Urine Turbidity Clear (Clear) 10/05/17 Unknown Urine pH 8.0 (5.0-7.0) H 10/05/17 Unknown Ur Specific [place] 1.038 (1.003-1.030) H 10/05/17 Unknown Urine Protein 30 mg/dl mg/dL (Negative) 10/05/17 Unknown Urine Glucose (UA) Neg mg/dL (Negative) 10/05/17 Unknown Urine Ketones Neg mg/dL (Negative) 10/05/17 Unknown Urine Blood Mod (Negative) 10/05/17 Unknown Urine Nitrite Neg (Negative) 10/05/17 Unknown Urine Bilirubin Neg (Negative) 10/05/17 Unknown Urine Urobilinogen < 2.0 mg/dL (<2.0) 10/05/17 Unknown Ur Leukocyte Esterase Sm (Negative) 10/05/17 Unknown Urine WBC (Auto) 26.0 /HPF (0.0-6.0) H 10/05/17 Unknown Urine RBC (Auto) 120.0 /HPF (0.0-6.0) 10/05/17 Unknown Urine Mucus Few /HPF 10/05/17 Unknown
[2017-10-17] MEDS: ZOLOFT PO SCH (10:17)
[2017-10-17] MEDS: PROTONIX PO SCH (10:17)
[2017-10-17] MEDS: RisperDAL PO SCH (10:17)
[2017-10-17] MEDS: LOVENOX SUB-Q SCH (10:18)
--- NOTE | 2017-10-17 11:19 | Progress Note ---
Subjective - Reason for Consult Consult date: 10/17/17 Reason for consult: Psychiatry Follow-up - Chief Complaint Chief complaint: "Hello" 72-year-old white male with a hx of dementia, GERD, gastric ulcers was sent to the emergency room from [place] because he was confused and agitated with episodes of N/V. Today patient is calm during the assessment, but confused. Upon my arrival patient was taking his medications. Per his assigned RN, no behavioral disturbance overnight. No gestures of SI/HI's. Mental Status Exam - Vital signs Last Vital Signs Temp 97.5 F L 10/17/17 07:27 Pulse 73 10/17/17 07:27 Resp 18 10/17/17 07:27 BP 119/76 10/17/17 07:27 Pulse Ox 99 10/17/17 07:27 - Exam Narrative exam: MSE: Appearance: calm Behavior: regular eye contact Speech: regular rate and tone Mood: "okay" Affect: congruent to mood Thought Process: not logical Thought Content: no gestures of SI/HI's and AVH's Motor Activity: sitting up in bed Cognition: A/O x1 Insight: limited Judgment: limited Assessment and Plan Impression: Dementia with behavioral disturbances. Today patient is calm during the assessment, but confused. Patient is not in restraints. No side effects noted of his medications. Recommendation/Plan: Recommend Haldol 2 mg PO TID for the agitation. Continue Remeron 15 mg PO HS for sleep consolidation. Remeron may stimulate the patient' s appetite. Continue Zoloft 50 mg PO Daily (started at [place]). Patient is pending placement. Recommend the following below: 1. Frequently reorient patient and involve him/her in their care (simple explanations of procedures, tests, medications). 2. Lights on and shades open during daytime hours. 3. Try to avoid unnecessary interruptions to sleep during nighttime hours. 4. Obtain glasses, hearing aids from home if patient uses these at baseline. 5. Avoid medications that may exacerbate delirium (especially narcotics, benzodiazepines, barbiturates, ambien, lunesta, and medications with excessive anticholinergic properties). 6. Recommend Haldol 2 mg IM Q6hrs PRN for acute agitation. 7. Recommend 1:1 sitter for safety.
[2017-10-18] MEDS: RisperDAL PO SCH (09:30)
[2017-10-18] MEDS: ZOLOFT PO SCH (09:30)
[2017-10-18] MEDS: PROTONIX PO SCH (09:30)
[2017-10-18] MEDS: LOVENOX SUB-Q SCH (09:30)
--- NOTE | 2017-10-18 10:26 | Progress Note ---
Assessment and Plan Assessment and plan: Patient is a 72-year-old man with history of dementia, GERD, peptic ulcer disorder and kidney stones who presented from the halfway to [facility] ED with altered mental status and behavioral issues. He was noted to be aggressive. Wandering into other patient's rooms. Being aggressive with staff members. Refusing to take his medications. Therefore he was sent to [place] inpatient psychiatric unit. Unfortunately while he was there he was more agitated, refusing his medications, he was noted to have projectile vomiting, nonstop vomiting. 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 Today patient is calm during the assessment, but confused. Patient is not in restraints. No side effects noted of his medications. Recommendation/Plan: Recommend Haldol 2 mg PO TID for the agitation. Continue Remeron 15 mg PO HS for sleep consolidation. Remeron may stimulate the patient' s appetite. Continue Zoloft 50 mg PO Daily (started at [facility]). Patient is pending placement. Recommend the following below: 1. Frequently reorient patient and involve him/her in their care (simple explanations of procedures, tests, medications). 2. Lights on and shades open during daytime hours. 3. Try to avoid unnecessary interruptions to sleep during nighttime hours. 4. Obtain glasses, hearing aids from home if patient uses these at baseline. 5. Avoid medications that may exacerbate delirium (especially narcotics, benzodiazepines, barbiturates, ambien, lunesta, and medications with excessive anticholinergic properties). 6. Recommend Haldol 2 mg IM Q6hrs PRN for acute agitation. 7. Recommend 1:1 sitter for safety." 10/15/17: The Haldol 2mg tid was not effective, as evident by restraints being applied. Then I switched to Risperdal and no restraints but 1mg qam is to sedative, will decrease Risperdal to 0.5mg qam and 1mg qhs. 10/16/17: yesterday he slip out of bed and scraped his elbow, no head trauma. wound care saw today. today, he is the most cooperative I have seen, he worked with Physical therapy, he is unable to stand though. He is not in restraints currently, he is answering some question. Risperadal 0.5mg qam and 1mg qhs is working today. Still trying to find placement. He is medical cleared to go to placement 10/17/17: He remains mentally stable and out of restraints. 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 Quinn Coats, pain specialist he can call. He requesting home xanax refill but he has not needed it since admission and History Interval history: Patient was seen and examined. Follow-up on current diagnosis. Overnight uneventful. Patient somnolent. Imaging, nursing note, chart, labs and old chart reviewed. Agitation worse after Risperdal change to around the clock Haldol. Hospitalist Physical - Physical exam Narrative exam: General: Disheveled, nad, awake alert confused but shook my hand HEENT: Moist mucous membranes, extraocular muscles intact, no lymphadenopathy Neck: supple Cardiac: normal S1-S2 and rrr Lungs: clear to auscultation bilaterally Abdomen: soft , nontender, nondistended, bowel sounds positive Extremities: no edema clubbing or cyanosis Skin: no rash or lesions Neurologic: Moves all extremities Psych: Patient is clearly confused - Constitutional Vitals: Temp Pulse Resp BP Pulse Ox 97.8 F 77 18 100/64 98 10/18/17 07:28 10/18/17 07:28 10/18/17 07:28 10/18/17 07:28 10/18/17 07:28 Results - Labs CBC & Chem 7: 10/14/17 06:37 10/14/17 06:37 Labs: Laboratory Last Values WBC 5.6 K/mm3 (4.5-11.0) 10/14/17 06:37 RBC 5.08 M/mm3 (3.65-5.03) H 10/14/17 06:37 Hgb 15.8 gm/dl (11.8-15.2) H 10/14/17 06:37 Hct 46.2 % (35.5-45.6) H 10/14/17 06:37 MCV 91 fl (84-94) 10/14/17 06:37 MCH 31 pg (28-32) 10/14/17 06:37 MCHC 34 % (32-34) 10/14/17 06:37 RDW 14.3 % (13.2-15.2) 10/14/17 06:37 Plt Count 372 K/mm3 (140-440) 10/14/17 06:37 Lymph % (Auto) 14.5 % (13.4-35.0) 10/06/17 03:38 [place] % (Auto) 9.3 % (0.0-7.3) H 10/06/17 03:38 Eos % (Auto) 0.2 % (0.0-4.3) 10/06/17 03:38 Baso % (Auto) 0.3 % (0.0-1.8) 10/06/17 03:38 Lymph # 1.9 K/mm3 (1.2-5.4) 10/06/17 03:38 [place] # 1.2 K/mm3 (0.0-0.8) H 10/06/17 03:38 Eos # 0.0 K/mm3 (0.0-0.4) 10/06/17 03:38 Baso # 0.0 K/mm3 (0.0-0.1) 10/06/17 03:38 Add Manual Diff Complete 10/04/17 22:06 Total Counted 100 10/04/17 22:06 Seg Neutrophils % 75.7 % (40.0-70.0) H 10/06/17 03:38 Seg Neuts % (Manual) 87.0 % (40.0-70.0) H 10/04/17 22:06 Band Neutrophils % 4.0 % 10/04/17 22:06 Lymphocytes % (Manual) 3.0 % (13.4-35.0) L 10/04/17 22:06 Reactive Lymphs % (Man) 0 % 10/04/17 22:06 Monocytes % (Manual) 6.0 % (0.0-7.3) 10/04/17 22:06 Eosinophils % (Manual) 0 % (0.0-4.3) 10/04/17 22:06 Basophils % (Manual) 0 % (0.0-1.8) 10/04/17 22:06 Metamyelocytes % 0 % 10/04/17 22:06 Myelocytes % 0 % 10/04/17 22:06 Promyelocytes % 0 % 10/04/17 22:06 Blast Cells % 0 % 10/04/17 22:06 Nucleated RBC % Not Reportable 10/04/17 22:06 Seg Neutrophils # 10.0 K/mm3 (1.8-7.7) H 10/06/17 03:38 Seg Neutrophils # Man 19.6 K/mm3 (1.8-7.7) H 10/04/17 22:06 Band Neutrophils # 0.9 K/mm3 10/04/17 22:06 Lymphocytes # (Manual) 0.7 K/mm3 (1.2-5.4) L 10/04/17 22:06 Abs React Lymphs (Man) 0.0 K/mm3 10/04/17 22:06 Monocytes # (Manual) 1.4 K/mm3 (0.0-0.8) H 10/04/17 22:06 Eosinophils # (Manual) 0.0 K/mm3 (0.0-0.4) 10/04/17 22:06 Basophils # (Manual) 0.0 K/mm3 (0.0-0.1) 10/04/17 22:06 Metamyelocytes # 0.0 K/mm3 10/04/17 22:06 Myelocytes # 0.0 K/mm3 10/04/17 22:06 Promyelocytes # 0.0 K/mm3 10/04/17 22:06 Blast Cells # 0.0 K/mm3 10/04/17 22:06 WBC Morphology Not Reportable 10/04/17 22:06 Hypersegmented Neuts Not Reportable 10/04/17 22:06 Hyposegmented Neuts Not Reportable 10/04/17 22:06 Hypogranular Neuts Not Reportable 10/04/17 22:06 Smudge Cells Not Reportable 10/04/17 22:06 Toxic Granulation Not Reportable 10/04/17 22:06 Toxic Vacuolation Not Reportable 10/04/17 22:06 Dohle Bodies Not Reportable 10/04/17 22:06 Pelger-Huet Anomaly Not Reportable 10/04/17 22:06 Javier Rods Not Reportable 10/04/17 22:06 Platelet Estimate Appears normal 10/04/17 22:06 Clumped Platelets Not Reportable 10/04/17 22:06 Plt Clumps, EDTA Not Reportable 10/04/17 22:06 Large Platelets Not Reportable 10/04/17 22:06 Giant Platelets Not Reportable 10/04/17 22:06 Platelet Satelliting Not Reportable 10/04/17 22:06 Plt Morphology Comment Not Reportable 10/04/17 22:06 RBC Morphology Normal 10/04/17 22:06 Dimorphic RBCs Not Reportable 10/04/17 22:06 Polychromasia Not Reportable 10/04/17 22:06 Hypochromasia Not Reportable 10/04/17 22:06 Poikilocytosis Not Reportable 10/04/17 22:06 Anisocytosis Not Reportable 10/04/17 22:06 Microcytosis Not Reportable 10/04/17 22:06 Macrocytosis Not Reportable 10/04/17 22:06 Spherocytes Not Reportable 10/04/17 22:06 Pappenheimer Bodies Not Reportable 10/04/17 22:06 Sickle Cells Not Reportable 10/04/17 22:06 Target Cells Not Reportable 10/04/17 22:06 Tear Drop Cells Not Reportable 10/04/17 22:06 Ovalocytes Not Reportable 10/04/17 22:06 Helmet Cells Not Reportable 10/04/17 22:06 [place] Bodies Not Reportable 10/04/17 22:06 [place] Rings Not Reportable 10/04/17 22:06 Franc Cells Not Reportable 10/04/17 22:06 Bite Cells Not Reportable 10/04/17 22:06 Crenated Cell Not Reportable 10/04/17 22:06 Elliptocytes Not Reportable 10/04/17 22:06 Acanthocytes (Spur) Not Reportable 10/04/17 22:06 Rouleaux Not Reportable 10/04/17 22:06 Hemoglobin C Crystals Not Reportable 10/04/17 22:06 Schistocytes Not Reportable 10/04/17 22:06 Malaria parasites Not Reportable 10/04/17 22:06 Donis Bodies Not Reportable 10/04/17 22:06 Hem Pathologist Commnt No 10/04/17 22:06 Sodium 137 mmol/L (137-145) 10/14/17 06:37 Potassium 3.9 mmol/L (3.6-5.0) 10/14/17 06:37 Chloride 104.7 mmol/L (98-107) 10/14/17 06:37 Carbon Dioxide 19 mmol/L (22-30) L 10/14/17 06:37 Anion Gap 17 mmol/L 10/14/17 06:37 BUN 9 mg/dL (9-20) 10/14/17 06:37 Creatinine 0.5 mg/dL (0.8-1.5) L 10/14/17 06:37 Estimated GFR > 60 ml/min 10/14/17 06:37 BUN/Creatinine Ratio 18 % 10/14/17 06:37 Glucose 102 mg/dL (75-100) H 10/14/17 06:37 POC Glucose 132 (70-105) H 10/12/17 12:41 Lactic Acid 3.40 mmol/L (0.7-2.0) H* 10/04/17 22:52 Calcium 8.8 mg/dL (8.4-10.2) 10/14/17 06:37 Total Bilirubin 1.70 mg/dL (0.1-1.2) H 10/04/17 22:06 AST 19 units/L (5-40) 10/04/17 22:06 ALT 19 units/L (7-56) 10/04/17 22:06 Alkaline Phosphatase 91 units/L (35-129) 10/04/17 22:06 Total Creatine Kinase 503 units/L (55-170) H 10/05/17 15:01 CK-MB (CK-2) 3.1 ng/mL (0.0-4.0) 10/05/17 15:01 CK-MB (CK-2) Rel Index 0.6 (0-4) 10/05/17 15:01 Troponin T 0.018 ng/mL (0.00-0.029) 10/05/17 15:01 Total Protein 6.7 g/dL (6.3-8.2) 10/04/17 22:06 Albumin 3.9 g/dL (3.9-5) 10/04/17 22:06 Albumin/Globulin Ratio 1.4 % 10/04/17 22:06 Lipase 46 units/L (13-60) 10/04/17 22:06 Urine Color Yellow (Yellow) 10/05/17 Unknown Urine Turbidity Clear (Clear) 10/05/17 Unknown Urine pH 8.0 (5.0-7.0) H 10/05/17 Unknown Ur Specific [place] 1.038 (1.003-1.030) H 10/05/17 Unknown Urine Protein 30 mg/dl mg/dL (Negative) 10/05/17 Unknown Urine Glucose (UA) Neg mg/dL (Negative) 10/05/17 Unknown Urine Ketones Neg mg/dL (Negative) 10/05/17 Unknown Urine Blood Mod (Negative) 10/05/17 Unknown Urine Nitrite Neg (Negative) 10/05/17 Unknown Urine Bilirubin Neg (Negative) 10/05/17 Unknown Urine Urobilinogen < 2.0 mg/dL (<2.0) 10/05/17 Unknown Ur Leukocyte Esterase Sm (Negative) 10/05/17 Unknown Urine WBC (Auto) 26.0 /HPF (0.0-6.0) H 10/05/17 Unknown Urine RBC (Auto) 120.0 /HPF (0.0-6.0) 10/05/17 Unknown Urine Mucus Few /HPF 10/05/17 Unknown
--- NOTE | 2017-10-18 11:17 | Progress Note ---
Subjective - Reason for Consult Consult date: 10/18/17 Reason for consult: Psychiatry Follow-up - Chief Complaint Chief complaint: "Hello" 72-year-old white male with a hx of dementia, GERD, gastric ulcers was sent to the emergency room from [place] because he was confused and agitated with episodes of N/V. Today patient is calm during the assessment, but confused. Per the staff, no behavioral disturbance overnight. No gestures of SI/HI's. No prn medication administered for agitation since 10/13/2017. Mental Status Exam - Vital signs Last Vital Signs Temp 97.8 F 10/18/17 07:28 Pulse 77 10/18/17 07:28 Resp 18 10/18/17 07:28 BP 100/64 10/18/17 07:28 Pulse Ox 98 10/18/17 07:28 - Exam Narrative exam: MSE: Appearance: calm Behavior: regular eye contact Speech: regular rate and tone Mood: "well" Affect: congruent to mood Thought Process: not logical Thought Content: no gestures of SI/HI's and AVH's Motor Activity: sitting up in bed Cognition: A/O x1 Insight: limited Judgment: limited Assessment and Plan Impression: Dementia with behavioral disturbances. Today patient is calm during the assessment, but confused. Patient is not in restraints. No side effects noted of his medications. Recommendation/Plan: Continue Remeron 15 mg PO HS for sleep consolidation, Zoloft 50 mg PO Daily (started at [place]), and Risperdal 0.5 mg QAM and 1 mg PO HS. Remeron may stimulate the patient's appetite. Patient is pending placement. Recommend the following below: 1. Frequently reorient patient and involve him/her in their care (simple explanations of procedures, tests, medications). 2. Lights on and shades open during daytime hours. 3. Try to avoid unnecessary interruptions to sleep during nighttime hours. 4. Obtain glasses, hearing aids from home if patient uses these at baseline. 5. Avoid medications that may exacerbate delirium (especially narcotics, benzodiazepines, barbiturates, ambien, lunesta, and medications with excessive anticholinergic properties). 6. Recommend Haldol 2 mg IM Q6hrs PRN for acute agitation. 7. Recommend 1:1 sitter for safety.
[2017-10-19] MEDS: REMERON PO SCH ×2 (08:28→23:27)
[2017-10-19] MEDS: RisperDAL PO SCH ×4 (08:28→23:27)
[2017-10-19] MEDS: SENOKOT S PO SCH ×3 (08:28→23:27)
[2017-10-19] MEDS: LOVENOX SUB-Q SCH (09:12)
[2017-10-19] MEDS: PROTONIX PO SCH (09:13)
[2017-10-19] MEDS: ZOLOFT PO SCH (09:13)
--- NOTE | 2017-10-19 10:58 | Progress Note ---
Assessment and Plan Assessment and plan: Patient is a 72-year-old man with history of dementia, GERD, peptic ulcer disorder and kidney stones who presented from the [facility] to [facility] ED with altered mental status and behavioral issues. He was noted to be aggressive. Wandering into other patient's rooms. Being aggressive with staff members. Refusing to take his medications. Therefore he was sent to [place] inpatient psychiatric unit. Unfortunately while he was there he was more agitated, refusing his medications, he was noted to have projectile vomiting, nonstop vomiting. 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 Today patient is calm during the assessment, but confused. Patient is not in restraints. No side effects noted of his medications. Recommendation/Plan: Recommend Haldol 2 mg PO TID for the agitation. Continue Remeron 15 mg PO HS for sleep consolidation. Remeron may stimulate the patient' s appetite. Continue Zoloft 50 mg PO Daily (started at [facility]). Patient is pending placement. Recommend the following below: 1. Frequently reorient patient and involve him/her in their care (simple explanations of procedures, tests, medications). 2. Lights on and shades open during daytime hours. 3. Try to avoid unnecessary interruptions to sleep during nighttime hours. 4. Obtain glasses, hearing aids from home if patient uses these at baseline. 5. Avoid medications that may exacerbate delirium (especially narcotics, benzodiazepines, barbiturates, ambien, lunesta, and medications with excessive anticholinergic properties). 6. Recommend Haldol 2 mg IM Q6hrs PRN for acute agitation. 7. Recommend 1:1 sitter for safety." 10/15/17: The Haldol 2mg tid was not effective, as evident by restraints being applied. Then I switched to Risperdal and no restraints but 1mg qam is to sedative, will decrease Risperdal to 0.5mg qam and 1mg qhs. 10/16/17: yesterday he slip out of bed and scraped his elbow, no head trauma. wound care saw today. today, he is the most cooperative I have seen, he worked with Physical therapy, he is unable to stand though. He is not in restraints currently, he is answering some question. Risperadal 0.5mg qam and 1mg qhs is working today. Still trying to find placement. He is medical cleared to go to placement 10/17/17: He remains mentally stable and out of restraints. Waiting on placement 10/18/17: Still not in restraints, waiting on placement 10/19/17: still not in restraints, waiting on placement, check labs am. History Interval history: Patient was seen and examined. Follow-up on current diagnosis. Overnight uneventful. Patient somnolent. Imaging, nursing note, chart, labs and old chart reviewed. Agitation worse after Risperdal change to around the clock Haldol. Hospitalist Physical - Physical exam Narrative exam: General: Disheveled, nad, awake alert confused but shook my hand HEENT: Moist mucous membranes, extraocular muscles intact, no lymphadenopathy Neck: supple Cardiac: normal S1-S2 and rrr Lungs: clear to auscultation bilaterally Abdomen: soft , nontender, nondistended, bowel sounds positive Extremities: no edema clubbing or cyanosis Skin: no rash or lesions Neurologic: Moves all extremities Psych: Patient is clearly confused - Constitutional Vitals: Temp Pulse Resp BP Pulse Ox 97.7 F 82 16 110/68 95 10/19/17 08:10 10/19/17 08:10 10/19/17 08:10 10/19/17 08:10 10/19/17 08:10 Results - Labs CBC & Chem 7: 10/14/17 06:37 10/14/17 06:37 Labs: Laboratory Last Values WBC 5.6 K/mm3 (4.5-11.0) 10/14/17 06:37 RBC 5.08 M/mm3 (3.65-5.03) H 10/14/17 06:37 Hgb 15.8 gm/dl (11.8-15.2) H 10/14/17 06:37 Hct 46.2 % (35.5-45.6) H 10/14/17 06:37 MCV 91 fl (84-94) 10/14/17 06:37 MCH 31 pg (28-32) 10/14/17 06:37 MCHC 34 % (32-34) 10/14/17 06:37 RDW 14.3 % (13.2-15.2) 10/14/17 06:37 Plt Count 372 K/mm3 (140-440) 10/14/17 06:37 Lymph % (Auto) 14.5 % (13.4-35.0) 10/06/17 03:38 [place] % (Auto) 9.3 % (0.0-7.3) H 10/06/17 03:38 Eos % (Auto) 0.2 % (0.0-4.3) 10/06/17 03:38 Baso % (Auto) 0.3 % (0.0-1.8) 10/06/17 03:38 Lymph # 1.9 K/mm3 (1.2-5.4) 10/06/17 03:38 [place] # 1.2 K/mm3 (0.0-0.8) H 10/06/17 03:38 Eos # 0.0 K/mm3 (0.0-0.4) 10/06/17 03:38 Baso # 0.0 K/mm3 (0.0-0.1) 10/06/17 03:38 Add Manual Diff Complete 10/04/17 22:06 Total Counted 100 10/04/17 22:06 Seg Neutrophils % 75.7 % (40.0-70.0) H 10/06/17 03:38 Seg Neuts % (Manual) 87.0 % (40.0-70.0) H 10/04/17 22:06 Band Neutrophils % 4.0 % 10/04/17 22:06 Lymphocytes % (Manual) 3.0 % (13.4-35.0) L 10/04/17 22:06 Reactive Lymphs % (Man) 0 % 10/04/17 22:06 Monocytes % (Manual) 6.0 % (0.0-7.3) 10/04/17 22:06 Eosinophils % (Manual) 0 % (0.0-4.3) 10/04/17 22:06 Basophils % (Manual) 0 % (0.0-1.8) 10/04/17 22:06 Metamyelocytes % 0 % 10/04/17 22:06 Myelocytes % 0 % 10/04/17 22:06 Promyelocytes % 0 % 10/04/17 22:06 Blast Cells % 0 % 10/04/17 22:06 Nucleated RBC % Not Reportable 10/04/17 22:06 Seg Neutrophils # 10.0 K/mm3 (1.8-7.7) H 10/06/17 03:38 Seg Neutrophils # Man 19.6 K/mm3 (1.8-7.7) H 10/04/17 22:06 Band Neutrophils # 0.9 K/mm3 10/04/17 22:06 Lymphocytes # (Manual) 0.7 K/mm3 (1.2-5.4) L 10/04/17 22:06 Abs React Lymphs (Man) 0.0 K/mm3 10/04/17 22:06 Monocytes # (Manual) 1.4 K/mm3 (0.0-0.8) H 10/04/17 22:06 Eosinophils # (Manual) 0.0 K/mm3 (0.0-0.4) 10/04/17 22:06 Basophils # (Manual) 0.0 K/mm3 (0.0-0.1) 10/04/17 22:06 Metamyelocytes # 0.0 K/mm3 10/04/17 22:06 Myelocytes # 0.0 K/mm3 10/04/17 22:06 Promyelocytes # 0.0 K/mm3 10/04/17 22:06 Blast Cells # 0.0 K/mm3 10/04/17 22:06 WBC Morphology Not Reportable 10/04/17 22:06 Hypersegmented Neuts Not Reportable 10/04/17 22:06 Hyposegmented Neuts Not Reportable 10/04/17 22:06 Hypogranular Neuts Not Reportable 10/04/17 22:06 Smudge Cells Not Reportable 10/04/17 22:06 Toxic Granulation Not Reportable 10/04/17 22:06 Toxic Vacuolation Not Reportable 10/04/17 22:06 Dohle Bodies Not Reportable 10/04/17 22:06 Pelger-Huet Anomaly Not Reportable 10/04/17 22:06 Javier Rods Not Reportable 10/04/17 22:06 Platelet Estimate Appears normal 10/04/17 22:06 Clumped Platelets Not Reportable 10/04/17 22:06 Plt Clumps, EDTA Not Reportable 10/04/17 22:06 Large Platelets Not Reportable 10/04/17 22:06 Giant Platelets Not Reportable 10/04/17 22:06 Platelet Satelliting Not Reportable 10/04/17 22:06 Plt Morphology Comment Not Reportable 10/04/17 22:06 RBC Morphology Normal 10/04/17 22:06 Dimorphic RBCs Not Reportable 10/04/17 22:06 Polychromasia Not Reportable 10/04/17 22:06 Hypochromasia Not Reportable 10/04/17 22:06 Poikilocytosis Not Reportable 10/04/17 22:06 Anisocytosis Not Reportable 10/04/17 22:06 Microcytosis Not Reportable 10/04/17 22:06 Macrocytosis Not Reportable 10/04/17 22:06 Spherocytes Not Reportable 10/04/17 22:06 Pappenheimer Bodies Not Reportable 10/04/17 22:06 Sickle Cells Not Reportable 10/04/17 22:06 Target Cells Not Reportable 10/04/17 22:06 Tear Drop Cells Not Reportable 10/04/17 22:06 Ovalocytes Not Reportable 10/04/17 22:06 Helmet Cells Not Reportable 10/04/17 22:06 [place] Bodies Not Reportable 10/04/17 22:06 [place] Rings Not Reportable 10/04/17 22:06 [place] Cells Not Reportable 10/04/17 22:06 Bite Cells Not Reportable 10/04/17 22:06 Crenated Cell Not Reportable 10/04/17 22:06 Elliptocytes Not Reportable 10/04/17 22:06 Acanthocytes (Spur) Not Reportable 10/04/17 22:06 Rouleaux Not Reportable 10/04/17 22:06 Hemoglobin C Crystals Not Reportable 10/04/17 22:06 Schistocytes Not Reportable 10/04/17 22:06 Malaria parasites Not Reportable 10/04/17 22:06 Donis Bodies Not Reportable 10/04/17 22:06 Hem Pathologist Commnt No 10/04/17 22:06 Sodium 137 mmol/L (137-145) 10/14/17 06:37 Potassium 3.9 mmol/L (3.6-5.0) 10/14/17 06:37 Chloride 104.7 mmol/L (98-107) 10/14/17 06:37 Carbon Dioxide 19 mmol/L (22-30) L 10/14/17 06:37 Anion Gap 17 mmol/L 10/14/17 06:37 BUN 9 mg/dL (9-20) 10/14/17 06:37 Creatinine 0.5 mg/dL (0.8-1.5) L 10/14/17 06:37 Estimated GFR > 60 ml/min 10/14/17 06:37 BUN/Creatinine Ratio 18 % 10/14/17 06:37 Glucose 102 mg/dL (75-100) H 10/14/17 06:37 POC Glucose 132 (70-105) H 10/12/17 12:41 Lactic Acid 3.40 mmol/L (0.7-2.0) H* 10/04/17 22:52 Calcium 8.8 mg/dL (8.4-10.2) 10/14/17 06:37 Total Bilirubin 1.70 mg/dL (0.1-1.2) H 10/04/17 22:06 AST 19 units/L (5-40) 10/04/17 22:06 ALT 19 units/L (7-56) 10/04/17 22:06 Alkaline Phosphatase 91 units/L (35-129) 10/04/17 22:06 Total Creatine Kinase 503 units/L (55-170) H 10/05/17 15:01 CK-MB (CK-2) 3.1 ng/mL (0.0-4.0) 10/05/17 15:01 CK-MB (CK-2) Rel Index 0.6 (0-4) 10/05/17 15:01 Troponin T 0.018 ng/mL (0.00-0.029) 10/05/17 15:01 Total Protein 6.7 g/dL (6.3-8.2) 10/04/17 22:06 Albumin 3.9 g/dL (3.9-5) 10/04/17 22:06 Albumin/Globulin Ratio 1.4 % 10/04/17 22:06 Lipase 46 units/L (13-60) 10/04/17 22:06 Urine Color Yellow (Yellow) 10/05/17 Unknown Urine Turbidity Clear (Clear) 10/05/17 Unknown Urine pH 8.0 (5.0-7.0) H 10/05/17 Unknown Ur Specific [place] 1.038 (1.003-1.030) H 10/05/17 Unknown Urine Protein 30 mg/dl mg/dL (Negative) 10/05/17 Unknown Urine Glucose (UA) Neg mg/dL (Negative) 10/05/17 Unknown Urine Ketones Neg mg/dL (Negative) 10/05/17 Unknown Urine Blood Mod (Negative) 10/05/17 Unknown Urine Nitrite Neg (Negative) 10/05/17 Unknown Urine Bilirubin Neg (Negative) 10/05/17 Unknown Urine Urobilinogen < 2.0 mg/dL (<2.0) 10/05/17 Unknown Ur Leukocyte Esterase Sm (Negative) 10/05/17 Unknown Urine WBC (Auto) 26.0 /HPF (0.0-6.0) H 10/05/17 Unknown Urine RBC (Auto) 120.0 /HPF (0.0-6.0) 10/05/17 Unknown Urine Mucus Few /HPF 10/05/17 Unknown
[2017-10-20 05:51] LABS: Hematocrit 44.7 % (35.5-45.6); Hemoglobin 15.5 gm/dl (11.8-15.2); Mean Corpuscular HGB Conc 35 % (32-34); Mean Corpuscular Hemoglobin 32 pg (28-32); Mean Corpuscular Volume 93 fl (84-94); Platelet Count 293 K/mm3 (140-440); Red Cell Distribution Width 14.8 % (13.2-15.2); White Blood Count 10.6 K/mm3 (4.5-11.0)
[2017-10-20 06:12] LABS: Anion Gap 19 mmol/L; BUN/Creatinine Ratio 36; Blood Urea Nitrogen 29 mg/dL (9-20); Calcium 9.1 mg/dL (8.4-10.2); Carbon Dioxide 25 mmol/L (22-30); Chloride 98.4 mmol/L (98-107); Glucose 146 mg/dL (75-100); Potassium 3.5 mmol/L (3.6-5.0); Sodium 139 mmol/L (137-145)
[2017-10-20] MEDS ORDERED: K-DUR PO ONE (08:10)
[2017-10-20] MEDS ORDERED: K-DUR PO NR (09:00)
[2017-10-20] MEDS: ZOLOFT PO SCH (10:05)
[2017-10-20] MEDS: PROTONIX PO SCH (10:05)
[2017-10-20] MEDS: RisperDAL PO SCH ×2 (10:05→22:30)
[2017-10-20] MEDS: LOVENOX SUB-Q SCH (10:07)
--- NOTE | 2017-10-20 11:16 | Progress Note ---
Assessment and Plan Assessment and plan: Assessment and plan: Patient is a 72-year-old man with history of dementia, GERD, peptic ulcer disorder and kidney stones who presented from the longterm to [facility] ED with altered mental status and behavioral issues. He was noted to be aggressive, wandering into other patient's rooms, being aggressive with staff members and refusing to take his medications. Therefore he was sent to [place] inpatient psychiatric unit. Unfortunately while he was there he was more agitated, refusing his medications, he was noted to have projectile vomiting, nonstop vomiting therefore brought to ED.. 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 Potassium 3.5. Replace orally and recheck tomorrow.. Disposition: needs placement, level 2 cleared, just waiting on placement History Interval history: Confused, Agitated on and off cannot give history No fever, no vomiting Hospitalist Physical - Physical exam Narrative exam: GEN APPEARANCE : Not in acute distress HEENT: Normocephalic, Atraumatic NECK : supple, no JVD LUNGS: Clear to auscultation bilaterally, no rales, no wheeze HEART: S1 and S2 regular, no murmurs, rubs or gallop, ABD: Soft, non tender, non distended, normal bowel sounds EXT: No edema, no clubbing, no cyanosis NEURO: Awake,alert, confused, - Constitutional Vitals: Temp Pulse Resp BP Pulse Ox 98.0 F 80 16 109/69 96 10/20/17 08:34 10/20/17 08:34 10/20/17 08:34 10/20/17 08:34 10/20/17 08:34 Results - Labs CBC & Chem 7: 10/20/17 05:02 10/20/17 05:02 Labs: Laboratory Last Values WBC 10.6 K/mm3 (4.5-11.0) 10/20/17 05:02 RBC 4.80 M/mm3 (3.65-5.03) 10/20/17 05:02 Hgb 15.5 gm/dl (11.8-15.2) H 10/20/17 05:02 Hct 44.7 % (35.5-45.6) 10/20/17 05:02 MCV 93 fl (84-94) 10/20/17 05:02 MCH 32 pg (28-32) 10/20/17 05:02 MCHC 35 % (32-34) H 10/20/17 05:02 RDW 14.8 % (13.2-15.2) 10/20/17 05:02 Plt Count 293 K/mm3 (140-440) 10/20/17 05:02 Lymph % (Auto) 14.5 % (13.4-35.0) 10/06/17 03:38 [place] % (Auto) 9.3 % (0.0-7.3) H 10/06/17 03:38 Eos % (Auto) 0.2 % (0.0-4.3) 10/06/17 03:38 Baso % (Auto) 0.3 % (0.0-1.8) 10/06/17 03:38 Lymph # 1.9 K/mm3 (1.2-5.4) 10/06/17 03:38 [place] # 1.2 K/mm3 (0.0-0.8) H 10/06/17 03:38 Eos # 0.0 K/mm3 (0.0-0.4) 10/06/17 03:38 Baso # 0.0 K/mm3 (0.0-0.1) 10/06/17 03:38 Add Manual Diff Complete 10/04/17 22:06 Total Counted 100 10/04/17 22:06 Seg Neutrophils % 75.7 % (40.0-70.0) H 10/06/17 03:38 Seg Neuts % (Manual) 87.0 % (40.0-70.0) H 10/04/17 22:06 Band Neutrophils % 4.0 % 10/04/17 22:06 Lymphocytes % (Manual) 3.0 % (13.4-35.0) L 10/04/17 22:06 Reactive Lymphs % (Man) 0 % 10/04/17 22:06 Monocytes % (Manual) 6.0 % (0.0-7.3) 10/04/17 22:06 Eosinophils % (Manual) 0 % (0.0-4.3) 10/04/17 22:06 Basophils % (Manual) 0 % (0.0-1.8) 10/04/17 22:06 Metamyelocytes % 0 % 10/04/17 22:06 Myelocytes % 0 % 10/04/17 22:06 Promyelocytes % 0 % 10/04/17 22:06 Blast Cells % 0 % 10/04/17 22:06 Nucleated RBC % Not Reportable 10/04/17 22:06 Seg Neutrophils # 10.0 K/mm3 (1.8-7.7) H 10/06/17 03:38 Seg Neutrophils # Man 19.6 K/mm3 (1.8-7.7) H 10/04/17 22:06 Band Neutrophils # 0.9 K/mm3 10/04/17 22:06 Lymphocytes # (Manual) 0.7 K/mm3 (1.2-5.4) L 10/04/17 22:06 Abs React Lymphs (Man) 0.0 K/mm3 10/04/17 22:06 Monocytes # (Manual) 1.4 K/mm3 (0.0-0.8) H 10/04/17 22:06 Eosinophils # (Manual) 0.0 K/mm3 (0.0-0.4) 10/04/17 22:06 Basophils # (Manual) 0.0 K/mm3 (0.0-0.1) 10/04/17 22:06 Metamyelocytes # 0.0 K/mm3 10/04/17 22:06 Myelocytes # 0.0 K/mm3 10/04/17 22:06 Promyelocytes # 0.0 K/mm3 10/04/17 22:06 Blast Cells # 0.0 K/mm3 10/04/17 22:06 WBC Morphology Not Reportable 10/04/17 22:06 Hypersegmented Neuts Not Reportable 10/04/17 22:06 Hyposegmented Neuts Not Reportable 10/04/17 22:06 Hypogranular Neuts Not Reportable 10/04/17 22:06 Smudge Cells Not Reportable 10/04/17 22:06 Toxic Granulation Not Reportable 10/04/17 22:06 Toxic Vacuolation Not Reportable 10/04/17 22:06 Dohle Bodies Not Reportable 10/04/17 22:06 Pelger-Huet Anomaly Not Reportable 10/04/17 22:06 Javier Rods Not Reportable 10/04/17 22:06 Platelet Estimate Appears normal 10/04/17 22:06 Clumped Platelets Not Reportable 10/04/17 22:06 Plt Clumps, EDTA Not Reportable 10/04/17 22:06 Large Platelets Not Reportable 10/04/17 22:06 Giant Platelets Not Reportable 10/04/17 22:06 Platelet Satelliting Not Reportable 10/04/17 22:06 Plt Morphology Comment Not Reportable 10/04/17 22:06 RBC Morphology Normal 10/04/17 22:06 Dimorphic RBCs Not Reportable 10/04/17 22:06 Polychromasia Not Reportable 10/04/17 22:06 Hypochromasia Not Reportable 10/04/17 22:06 Poikilocytosis Not Reportable 10/04/17 22:06 Anisocytosis Not Reportable 10/04/17 22:06 Microcytosis Not Reportable 10/04/17 22:06 Macrocytosis Not Reportable 10/04/17 22:06 Spherocytes Not Reportable 10/04/17 22:06 Pappenheimer Bodies Not Reportable 10/04/17 22:06 Sickle Cells Not Reportable 10/04/17 22:06 Target Cells Not Reportable 10/04/17 22:06 Tear Drop Cells Not Reportable 10/04/17 22:06 Ovalocytes Not Reportable 10/04/17 22:06 Helmet Cells Not Reportable 10/04/17 22:06 [place] Bodies Not Reportable 10/04/17 22:06 [place] Rings Not Reportable 10/04/17 22:06 [place] Cells Not Reportable 10/04/17 22:06 Bite Cells Not Reportable 10/04/17 22:06 Crenated Cell Not Reportable 10/04/17 22:06 Elliptocytes Not Reportable 10/04/17 22:06 Acanthocytes (Spur) Not Reportable 10/04/17 22:06 Rouleaux Not Reportable 10/04/17 22:06 Hemoglobin C Crystals Not Reportable 10/04/17 22:06 Schistocytes Not Reportable 10/04/17 22:06 Malaria parasites Not Reportable 10/04/17 22:06 Donis Bodies Not Reportable 10/04/17 22:06 Hem Pathologist Commnt No 10/04/17 22:06 Sodium 139 mmol/L (137-145) 10/20/17 05:02 Potassium 3.5 mmol/L (3.6-5.0) L 10/20/17 05:02 Chloride 98.4 mmol/L (98-107) 10/20/17 05:02 Carbon Dioxide 25 mmol/L (22-30) 10/20/17 05:02 Anion Gap 19 mmol/L 10/20/17 05:02 BUN 29 mg/dL (9-20) H 10/20/17 05:02 Creatinine 0.8 mg/dL (0.8-1.5) 10/20/17 05:02 Estimated GFR > 60 ml/min 10/20/17 05:02 BUN/Creatinine Ratio 36 % 10/20/17 05:02 Glucose 146 mg/dL (75-100) H 10/20/17 05:02 POC Glucose 132 (70-105) H 10/12/17 12:41 Lactic Acid 3.40 mmol/L (0.7-2.0) H* 10/04/17 22:52 Calcium 9.1 mg/dL (8.4-10.2) 10/20/17 05:02 Total Bilirubin 1.70 mg/dL (0.1-1.2) H 10/04/17 22:06 AST 19 units/L (5-40) 10/04/17 22:06 ALT 19 units/L (7-56) 10/04/17 22:06 Alkaline Phosphatase 91 units/L (35-129) 10/04/17 22:06 Total Creatine Kinase 503 units/L (55-170) H 10/05/17 15:01 CK-MB (CK-2) 3.1 ng/mL (0.0-4.0) 10/05/17 15:01 CK-MB (CK-2) Rel Index 0.6 (0-4) 10/05/17 15:01 Troponin T 0.018 ng/mL (0.00-0.029) 10/05/17 15:01 Total Protein 6.7 g/dL (6.3-8.2) 10/04/17 22:06 Albumin 3.9 g/dL (3.9-5) 10/04/17 22:06 Albumin/Globulin Ratio 1.4 % 10/04/17 22:06 Lipase 46 units/L (13-60) 10/04/17 22:06 Urine Color Yellow (Yellow) 10/05/17 Unknown Urine Turbidity Clear (Clear) 10/05/17 Unknown Urine pH 8.0 (5.0-7.0) H 10/05/17 Unknown Ur Specific [place] 1.038 (1.003-1.030) H 10/05/17 Unknown Urine Protein 30 mg/dl mg/dL (Negative) 10/05/17 Unknown Urine Glucose (UA) Neg mg/dL (Negative) 10/05/17 Unknown Urine Ketones Neg mg/dL (Negative) 10/05/17 Unknown Urine Blood Mod (Negative) 10/05/17 Unknown Urine Nitrite Neg (Negative) 10/05/17 Unknown Urine Bilirubin Neg (Negative) 10/05/17 Unknown Urine Urobilinogen < 2.0 mg/dL (<2.0) 10/05/17 Unknown Ur Leukocyte Esterase Sm (Negative) 10/05/17 Unknown Urine WBC (Auto) 26.0 /HPF (0.0-6.0) H 10/05/17 Unknown Urine RBC (Auto) 120.0 /HPF (0.0-6.0) 10/05/17 Unknown Urine Mucus Few /HPF 10/05/17 Unknown
--- NOTE | 2017-10-20 20:57 | Progress Note ---
Subjective - Reason for Consult Reason for consult: psych consult - Chief Complaint Chief complaint: 72-year-old white male with a hx of dementia, GERD, gastric ulcers was sent to the emergency room from [place] because he was confused and agitated with episodes of N/V. Patient remains confused. He wasn't able to answer any questions. No evidence of any aggression when seen by me. Mental Status Exam - Vital signs Last Vital Signs Temp 97.9 F 10/20/17 12:55 Pulse 80 10/20/17 08:34 Resp 18 10/20/17 12:55 BP 108/81 10/20/17 12:55 Pulse Ox 96 10/20/17 10:00 - Exam Orientation: person Affect: normal Mood: other (no answer) Thought content: other Thought Process: Disoriented Perceptions: none Speech: minimal response Concentration: unable to pay attention Level of consciousness: confused Memory: Recent Impaired, Remote Impaired Interaction: cooperative Mini mental status exam(if necessary): 0-17 Assessment and Plan Assessment and Plan Impression: Dementia with behavioral disturbances. Today patient is confused but not agitated. Recommendation/Plan: Continue all psych meds as indicated-
[2017-10-20] MEDS: REMERON PO SCH (22:30)
[2017-10-20] MEDS: SENOKOT S PO SCH (23:18)
[2017-10-20] MEDS: HALDOL IM PRN (23:25)
--- NOTE | 2017-10-21 10:37 | Progress Note ---
Subjective - Reason for Consult Consult date: 10/21/17 Reason for consult: Psychiatry Follow-up - Chief Complaint Chief complaint: "Hello" 72-year-old white male with a hx of dementia, GERD, gastric ulcers was sent to the emergency room from [place] because he was confused and agitated with episodes of N/V. Today patient is still confused on assessment. His answers were not logical. No evidence of any aggression when seen by me. No gestures of SI/HI's and AVH's. Mental Status Exam - Vital signs Last Vital Signs Temp 97.5 F L 10/21/17 07:52 Pulse 94 H 10/21/17 07:52 Resp 20 10/21/17 07:52 BP 116/72 10/21/17 07:52 Pulse Ox 95 10/21/17 07:52 - Exam Narrative exam: MSE: Appearance: calm Behavior: regular eye contact Speech: regular rate and tone Mood: "okay" Affect: congruent to mood Thought Process: not logical Thought Content: no gestures of SI/HI's and AVH's Motor Activity: sitting up in bed Cognition: A/O x1 Insight: limited Judgment: limited Assessment and Plan Impression: Dementia with behavioral disturbances. Today patient is still confused on assessment. Patient is not in restraints. No side effects noted of his medications. Recommendation/Plan: Continue Remeron 15 mg PO HS for sleep consolidation, Zoloft 50 mg PO Daily (started at [place]), and Risperdal 0.5 mg QAM and 1 mg PO HS. Remeron may stimulate the patient's appetite. Patient is pending placement. Recommend the following below: 1. Frequently reorient patient and involve him/her in their care (simple explanations of procedures, tests, medications). 2. Lights on and shades open during daytime hours. 3. Try to avoid unnecessary interruptions to sleep during nighttime hours. 4. Obtain glasses, hearing aids from home if patient uses these at baseline. 5. Avoid medications that may exacerbate delirium (especially narcotics, benzodiazepines, barbiturates, ambien, lunesta, and medications with excessive anticholinergic properties). 6. Recommend Haldol 2 mg IM Q6hrs PRN for acute agitation. 7. Recommend 1:1 sitter for safety.
[2017-10-21] MEDS: PROTONIX PO SCH (12:43)
[2017-10-21] MEDS: ZOLOFT PO SCH (12:43)
[2017-10-21] MEDS: RisperDAL PO SCH ×3 (12:43→21:36)
[2017-10-21] MEDS: LOVENOX SUB-Q SCH (12:43)
--- NOTE | 2017-10-21 12:57 | Progress Note ---
Assessment and Plan Assessment and plan: Assessment and plan: Patient is a 72-year-old man with history of dementia, GERD, peptic ulcer disorder and kidney stones who presented from the custodial to [facility] with altered mental status and behavioral issues. He was noted to be aggressive, wandering into other patient's rooms, being aggressive with staff members and refusing to take his medications. Therefore he was sent to [facility] inpatient psychiatric unit. Unfortunately while he was there he was more agitated, refusing his medications, he was noted to have projectile vomiting, nonstop vomiting therefore brought to ED.. Acute metabolic encephalopathy, POA, due to worsening chronic medical condition Treat conservatively SIRS UTI and sepsis ruled out blood and urine cx neg, dc abx Dementia with behavioral disturbance optimize behavioral meds Functional Quadriplegia due to dementia, poa Physical therapy Projectile vomiting/refusal to swallow resolved, tolerating orally Was evaluated by GI Physician:no further workup indicated GERD/history of peptic ulcer disease PPI Hypokalemia. Potassium 3.5. Replace orally and recheck tomorrow.. Disposition: needs placement, level 2 cleared, just waiting on placement History Interval history: Confused, Agitated on and off cannot give history No fever, no vomiting Hospitalist Physical - Physical exam Narrative exam: GEN APPEARANCE : Not in acute distress HEENT: Normocephalic, Atraumatic NECK : supple, no JVD LUNGS: Clear to auscultation bilaterally, no rales, no wheeze HEART: S1 and S2 regular, no murmurs, rubs or gallop, ABD: Soft, non tender, non distended, normal bowel sounds EXT: No edema, no clubbing, no cyanosis NEURO: Awake,alert, confused, - Constitutional Vitals: Temp Pulse Resp BP Pulse Ox 97.5 F L 94 H 20 116/72 95 10/21/17 07:52 10/21/17 07:52 10/21/17 07:52 10/21/17 07:52 10/21/17 07:52 Results - Labs CBC & Chem 7: 10/20/17 05:02 10/20/17 05:02 Labs: Laboratory Last Values WBC 10.6 K/mm3 (4.5-11.0) 10/20/17 05:02 RBC 4.80 M/mm3 (3.65-5.03) 10/20/17 05:02 Hgb 15.5 gm/dl (11.8-15.2) H 10/20/17 05:02 Hct 44.7 % (35.5-45.6) 10/20/17 05:02 MCV 93 fl (84-94) 10/20/17 05:02 MCH 32 pg (28-32) 10/20/17 05:02 MCHC 35 % (32-34) H 10/20/17 05:02 RDW 14.8 % (13.2-15.2) 10/20/17 05:02 Plt Count 293 K/mm3 (140-440) 10/20/17 05:02 Lymph % (Auto) 14.5 % (13.4-35.0) 10/06/17 03:38 [place] % (Auto) 9.3 % (0.0-7.3) H 10/06/17 03:38 Eos % (Auto) 0.2 % (0.0-4.3) 10/06/17 03:38 Baso % (Auto) 0.3 % (0.0-1.8) 10/06/17 03:38 Lymph # 1.9 K/mm3 (1.2-5.4) 10/06/17 03:38 [place] # 1.2 K/mm3 (0.0-0.8) H 10/06/17 03:38 Eos # 0.0 K/mm3 (0.0-0.4) 10/06/17 03:38 Baso # 0.0 K/mm3 (0.0-0.1) 10/06/17 03:38 Add Manual Diff Complete 10/04/17 22:06 Total Counted 100 10/04/17 22:06 Seg Neutrophils % 75.7 % (40.0-70.0) H 10/06/17 03:38 Seg Neuts % (Manual) 87.0 % (40.0-70.0) H 10/04/17 22:06 Band Neutrophils % 4.0 % 10/04/17 22:06 Lymphocytes % (Manual) 3.0 % (13.4-35.0) L 10/04/17 22:06 Reactive Lymphs % (Man) 0 % 10/04/17 22:06 Monocytes % (Manual) 6.0 % (0.0-7.3) 10/04/17 22:06 Eosinophils % (Manual) 0 % (0.0-4.3) 10/04/17 22:06 Basophils % (Manual) 0 % (0.0-1.8) 10/04/17 22:06 Metamyelocytes % 0 % 10/04/17 22:06 Myelocytes % 0 % 10/04/17 22:06 Promyelocytes % 0 % 10/04/17 22:06 Blast Cells % 0 % 10/04/17 22:06 Nucleated RBC % Not Reportable 10/04/17 22:06 Seg Neutrophils # 10.0 K/mm3 (1.8-7.7) H 10/06/17 03:38 Seg Neutrophils # Man 19.6 K/mm3 (1.8-7.7) H 10/04/17 22:06 Band Neutrophils # 0.9 K/mm3 10/04/17 22:06 Lymphocytes # (Manual) 0.7 K/mm3 (1.2-5.4) L 10/04/17 22:06 Abs React Lymphs (Man) 0.0 K/mm3 10/04/17 22:06 Monocytes # (Manual) 1.4 K/mm3 (0.0-0.8) H 10/04/17 22:06 Eosinophils # (Manual) 0.0 K/mm3 (0.0-0.4) 10/04/17 22:06 Basophils # (Manual) 0.0 K/mm3 (0.0-0.1) 10/04/17 22:06 Metamyelocytes # 0.0 K/mm3 10/04/17 22:06 Myelocytes # 0.0 K/mm3 10/04/17 22:06 Promyelocytes # 0.0 K/mm3 10/04/17 22:06 Blast Cells # 0.0 K/mm3 10/04/17 22:06 WBC Morphology Not Reportable 10/04/17 22:06 Hypersegmented Neuts Not Reportable 10/04/17 22:06 Hyposegmented Neuts Not Reportable 10/04/17 22:06 Hypogranular Neuts Not Reportable 10/04/17 22:06 Smudge Cells Not Reportable 10/04/17 22:06 Toxic Granulation Not Reportable 10/04/17 22:06 Toxic Vacuolation Not Reportable 10/04/17 22:06 Dohle Bodies Not Reportable 10/04/17 22:06 Pelger-Huet Anomaly Not Reportable 10/04/17 22:06 Javier Rods Not Reportable 10/04/17 22:06 Platelet Estimate Appears normal 10/04/17 22:06 Clumped Platelets Not Reportable 10/04/17 22:06 Plt Clumps, EDTA Not Reportable 10/04/17 22:06 Large Platelets Not Reportable 10/04/17 22:06 Giant Platelets Not Reportable 10/04/17 22:06 Platelet Satelliting Not Reportable 10/04/17 22:06 Plt Morphology Comment Not Reportable 10/04/17 22:06 RBC Morphology Normal 10/04/17 22:06 Dimorphic RBCs Not Reportable 10/04/17 22:06 Polychromasia Not Reportable 10/04/17 22:06 Hypochromasia Not Reportable 10/04/17 22:06 Poikilocytosis Not Reportable 10/04/17 22:06 Anisocytosis Not Reportable 10/04/17 22:06 Microcytosis Not Reportable 10/04/17 22:06 Macrocytosis Not Reportable 10/04/17 22:06 Spherocytes Not Reportable 10/04/17 22:06 Pappenheimer Bodies Not Reportable 10/04/17 22:06 Sickle Cells Not Reportable 10/04/17 22:06 Target Cells Not Reportable 10/04/17 22:06 Tear Drop Cells Not Reportable 10/04/17 22:06 Ovalocytes Not Reportable 10/04/17 22:06 Helmet Cells Not Reportable 10/04/17 22:06 Armendariz-Wesley Bodies Not Reportable 10/04/17 22:06 [place] Rings Not Reportable 10/04/17 22:06 Franc Cells Not Reportable 10/04/17 22:06 Bite Cells Not Reportable 10/04/17 22:06 Crenated Cell Not Reportable 10/04/17 22:06 Elliptocytes Not Reportable 10/04/17 22:06 Acanthocytes (Spur) Not Reportable 10/04/17 22:06 Rouleaux Not Reportable 10/04/17 22:06 Hemoglobin C Crystals Not Reportable 10/04/17 22:06 Schistocytes Not Reportable 10/04/17 22:06 Malaria parasites Not Reportable 10/04/17 22:06 Donis Bodies Not Reportable 10/04/17 22:06 Hem Pathologist Commnt No 10/04/17 22:06 Sodium 139 mmol/L (137-145) 10/20/17 05:02 Potassium 3.5 mmol/L (3.6-5.0) L 10/20/17 05:02 Chloride 98.4 mmol/L (98-107) 10/20/17 05:02 Carbon Dioxide 25 mmol/L (22-30) 10/20/17 05:02 Anion Gap 19 mmol/L 10/20/17 05:02 BUN 29 mg/dL (9-20) H 10/20/17 05:02 Creatinine 0.8 mg/dL (0.8-1.5) 10/20/17 05:02 Estimated GFR > 60 ml/min 10/20/17 05:02 BUN/Creatinine Ratio 36 % 10/20/17 05:02 Glucose 146 mg/dL (75-100) H 10/20/17 05:02 POC Glucose 132 (70-105) H 10/12/17 12:41 Lactic Acid 3.40 mmol/L (0.7-2.0) H* 10/04/17 22:52 Calcium 9.1 mg/dL (8.4-10.2) 10/20/17 05:02 Total Bilirubin 1.70 mg/dL (0.1-1.2) H 10/04/17 22:06 AST 19 units/L (5-40) 10/04/17 22:06 ALT 19 units/L (7-56) 10/04/17 22:06 Alkaline Phosphatase 91 units/L (35-129) 10/04/17 22:06 Total Creatine Kinase 503 units/L (55-170) H 10/05/17 15:01 CK-MB (CK-2) 3.1 ng/mL (0.0-4.0) 10/05/17 15:01 CK-MB (CK-2) Rel Index 0.6 (0-4) 10/05/17 15:01 Troponin T 0.018 ng/mL (0.00-0.029) 10/05/17 15:01 Total Protein 6.7 g/dL (6.3-8.2) 10/04/17 22:06 Albumin 3.9 g/dL (3.9-5) 10/04/17 22:06 Albumin/Globulin Ratio 1.4 % 10/04/17 22:06 Lipase 46 units/L (13-60) 10/04/17 22:06 Urine Color Yellow (Yellow) 10/05/17 Unknown Urine Turbidity Clear (Clear) 10/05/17 Unknown Urine pH 8.0 (5.0-7.0) H 10/05/17 Unknown Ur Specific [place] 1.038 (1.003-1.030) H 10/05/17 Unknown Urine Protein 30 mg/dl mg/dL (Negative) 10/05/17 Unknown Urine Glucose (UA) Neg mg/dL (Negative) 10/05/17 Unknown Urine Ketones Neg mg/dL (Negative) 10/05/17 Unknown Urine Blood Mod (Negative) 10/05/17 Unknown Urine Nitrite Neg (Negative) 10/05/17 Unknown Urine Bilirubin Neg (Negative) 10/05/17 Unknown Urine Urobilinogen < 2.0 mg/dL (<2.0) 10/05/17 Unknown Ur Leukocyte Esterase Sm (Negative) 10/05/17 Unknown Urine WBC (Auto) 26.0 /HPF (0.0-6.0) H 10/05/17 Unknown Urine RBC (Auto) 120.0 /HPF (0.0-6.0) 10/05/17 Unknown Urine Mucus Few /HPF 10/05/17 Unknown
[2017-10-21] MEDS: REMERON PO SCH ×2 (20:48→21:35)
[2017-10-21] MEDS: SENOKOT S PO SCH (21:35)
[2017-10-22 05:44] LABS: Anion Gap 18 mmol/L; BUN/Creatinine Ratio 37; Blood Urea Nitrogen 26 mg/dL (9-20); Calcium 9.4 mg/dL (8.4-10.2); Carbon Dioxide 29 mmol/L (22-30); Chloride 98.8 mmol/L (98-107); Glucose 101 mg/dL (75-100); Potassium 4.8 mmol/L (3.6-5.0); Sodium 141 mmol/L (137-145)
[2017-10-22] MEDS: LOVENOX SUB-Q SCH (10:26)
[2017-10-22] MEDS: ZOLOFT PO SCH (10:26)
[2017-10-22] MEDS: RisperDAL PO SCH (10:26)
[2017-10-22] MEDS: PROTONIX PO SCH (10:26)
--- NOTE | 2017-10-22 11:59 | Progress Note ---
Hospitalist Physical - Constitutional Vitals: Temp Pulse Resp BP Pulse Ox 97.6 F 85 20 128/74 98 10/21/17 20:07 10/21/17 20:07 10/21/17 22:00 10/21/17 20:07 10/21/17 20:07 Results - Labs CBC & Chem 7: 10/20/17 05:02 10/22/17 04:58 Labs: Laboratory Last Values WBC 10.6 K/mm3 (4.5-11.0) 10/20/17 05:02 RBC 4.80 M/mm3 (3.65-5.03) 10/20/17 05:02 Hgb 15.5 gm/dl (11.8-15.2) H 10/20/17 05:02 Hct 44.7 % (35.5-45.6) 10/20/17 05:02 MCV 93 fl (84-94) 10/20/17 05:02 MCH 32 pg (28-32) 10/20/17 05:02 MCHC 35 % (32-34) H 10/20/17 05:02 RDW 14.8 % (13.2-15.2) 10/20/17 05:02 Plt Count 293 K/mm3 (140-440) 10/20/17 05:02 Lymph % (Auto) 14.5 % (13.4-35.0) 10/06/17 03:38 [place] % (Auto) 9.3 % (0.0-7.3) H 10/06/17 03:38 Eos % (Auto) 0.2 % (0.0-4.3) 10/06/17 03:38 Baso % (Auto) 0.3 % (0.0-1.8) 10/06/17 03:38 Lymph # 1.9 K/mm3 (1.2-5.4) 10/06/17 03:38 [place] # 1.2 K/mm3 (0.0-0.8) H 10/06/17 03:38 Eos # 0.0 K/mm3 (0.0-0.4) 10/06/17 03:38 Baso # 0.0 K/mm3 (0.0-0.1) 10/06/17 03:38 Add Manual Diff Complete 10/04/17 22:06 Total Counted 100 10/04/17 22:06 Seg Neutrophils % 75.7 % (40.0-70.0) H 10/06/17 03:38 Seg Neuts % (Manual) 87.0 % (40.0-70.0) H 10/04/17 22:06 Band Neutrophils % 4.0 % 10/04/17 22:06 Lymphocytes % (Manual) 3.0 % (13.4-35.0) L 10/04/17 22:06 Reactive Lymphs % (Man) 0 % 10/04/17 22:06 Monocytes % (Manual) 6.0 % (0.0-7.3) 10/04/17 22:06 Eosinophils % (Manual) 0 % (0.0-4.3) 10/04/17 22:06 Basophils % (Manual) 0 % (0.0-1.8) 10/04/17 22:06 Metamyelocytes % 0 % 10/04/17 22:06 Myelocytes % 0 % 10/04/17 22:06 Promyelocytes % 0 % 10/04/17 22:06 Blast Cells % 0 % 10/04/17 22:06 Nucleated RBC % Not Reportable 10/04/17 22:06 Seg Neutrophils # 10.0 K/mm3 (1.8-7.7) H 10/06/17 03:38 Seg Neutrophils # Man 19.6 K/mm3 (1.8-7.7) H 10/04/17 22:06 Band Neutrophils # 0.9 K/mm3 10/04/17 22:06 Lymphocytes # (Manual) 0.7 K/mm3 (1.2-5.4) L 10/04/17 22:06 Abs React Lymphs (Man) 0.0 K/mm3 10/04/17 22:06 Monocytes # (Manual) 1.4 K/mm3 (0.0-0.8) H 10/04/17 22:06 Eosinophils # (Manual) 0.0 K/mm3 (0.0-0.4) 10/04/17 22:06 Basophils # (Manual) 0.0 K/mm3 (0.0-0.1) 10/04/17 22:06 Metamyelocytes # 0.0 K/mm3 10/04/17 22:06 Myelocytes # 0.0 K/mm3 10/04/17 22:06 Promyelocytes # 0.0 K/mm3 10/04/17 22:06 Blast Cells # 0.0 K/mm3 10/04/17 22:06 WBC Morphology Not Reportable 10/04/17 22:06 Hypersegmented Neuts Not Reportable 10/04/17 22:06 Hyposegmented Neuts Not Reportable 10/04/17 22:06 Hypogranular Neuts Not Reportable 10/04/17 22:06 Smudge Cells Not Reportable 10/04/17 22:06 Toxic Granulation Not Reportable 10/04/17 22:06 Toxic Vacuolation Not Reportable 10/04/17 22:06 Dohle Bodies Not Reportable 10/04/17 22:06 Pelger-Huet Anomaly Not Reportable 10/04/17 22:06 Javier Rods Not Reportable 10/04/17 22:06 Platelet Estimate Appears normal 10/04/17 22:06 Clumped Platelets Not Reportable 10/04/17 22:06 Plt Clumps, EDTA Not Reportable 10/04/17 22:06 Large Platelets Not Reportable 10/04/17 22:06 Giant Platelets Not Reportable 10/04/17 22:06 Platelet Satelliting Not Reportable 10/04/17 22:06 Plt Morphology Comment Not Reportable 10/04/17 22:06 RBC Morphology Normal 10/04/17 22:06 Dimorphic RBCs Not Reportable 10/04/17 22:06 Polychromasia Not Reportable 10/04/17 22:06 Hypochromasia Not Reportable 10/04/17 22:06 Poikilocytosis Not Reportable 10/04/17 22:06 Anisocytosis Not Reportable 10/04/17 22:06 Microcytosis Not Reportable 10/04/17 22:06 Macrocytosis Not Reportable 10/04/17 22:06 Spherocytes Not Reportable 10/04/17 22:06 Pappenheimer Bodies Not Reportable 10/04/17 22:06 Sickle Cells Not Reportable 10/04/17 22:06 Target Cells Not Reportable 10/04/17 22:06 Tear Drop Cells Not Reportable 10/04/17 22:06 Ovalocytes Not Reportable 10/04/17 22:06 Helmet Cells Not Reportable 10/04/17 22:06 Armendariz-Peralta Bodies Not Reportable 10/04/17 22:06 [place] Rings Not Reportable 10/04/17 22:06 Franc Cells Not Reportable 10/04/17 22:06 Bite Cells Not Reportable 10/04/17 22:06 Crenated Cell Not Reportable 10/04/17 22:06 Elliptocytes Not Reportable 10/04/17 22:06 Acanthocytes (Spur) Not Reportable 10/04/17 22:06 Rouleaux Not Reportable 10/04/17 22:06 Hemoglobin C Crystals Not Reportable 10/04/17 22:06 Schistocytes Not Reportable 10/04/17 22:06 Malaria parasites Not Reportable 10/04/17 22:06 Donis Bodies Not Reportable 10/04/17 22:06 Hem Pathologist Commnt No 10/04/17 22:06 Sodium 141 mmol/L (137-145) 10/22/17 04:58 Potassium 4.8 mmol/L (3.6-5.0) D 10/22/17 04:58 Chloride 98.8 mmol/L (98-107) 10/22/17 04:58 Carbon Dioxide 29 mmol/L (22-30) 10/22/17 04:58 Anion Gap 18 mmol/L 10/22/17 04:58 BUN 26 mg/dL (9-20) H 10/22/17 04:58 Creatinine 0.7 mg/dL (0.8-1.5) L 10/22/17 04:58 Estimated GFR > 60 ml/min 10/22/17 04:58 BUN/Creatinine Ratio 37 % 10/22/17 04:58 Glucose 101 mg/dL (75-100) H 10/22/17 04:58 POC Glucose 132 (70-105) H 10/12/17 12:41 Lactic Acid 3.40 mmol/L (0.7-2.0) H* 10/04/17 22:52 Calcium 9.4 mg/dL (8.4-10.2) 10/22/17 04:58 Total Bilirubin 1.70 mg/dL (0.1-1.2) H 10/04/17 22:06 AST 19 units/L (5-40) 10/04/17 22:06 ALT 19 units/L (7-56) 10/04/17 22:06 Alkaline Phosphatase 91 units/L (35-129) 10/04/17 22:06 Total Creatine Kinase 503 units/L (55-170) H 10/05/17 15:01 CK-MB (CK-2) 3.1 ng/mL (0.0-4.0) 10/05/17 15:01 CK-MB (CK-2) Rel Index 0.6 (0-4) 10/05/17 15:01 Troponin T 0.018 ng/mL (0.00-0.029) 10/05/17 15:01 Total Protein 6.7 g/dL (6.3-8.2) 10/04/17 22:06 Albumin 3.9 g/dL (3.9-5) 10/04/17 22:06 Albumin/Globulin Ratio 1.4 % 10/04/17 22:06 Lipase 46 units/L (13-60) 10/04/17 22:06 Urine Color Yellow (Yellow) 10/05/17 Unknown Urine Turbidity Clear (Clear) 10/05/17 Unknown Urine pH 8.0 (5.0-7.0) H 10/05/17 Unknown Ur Specific [place] 1.038 (1.003-1.030) H 10/05/17 Unknown Urine Protein 30 mg/dl mg/dL (Negative) 10/05/17 Unknown Urine Glucose (UA) Neg mg/dL (Negative) 10/05/17 Unknown Urine Ketones Neg mg/dL (Negative) 10/05/17 Unknown Urine Blood Mod (Negative) 10/05/17 Unknown Urine Nitrite Neg (Negative) 10/05/17 Unknown Urine Bilirubin Neg (Negative) 10/05/17 Unknown Urine Urobilinogen < 2.0 mg/dL (<2.0) 10/05/17 Unknown Ur Leukocyte Esterase Sm (Negative) 10/05/17 Unknown Urine WBC (Auto) 26.0 /HPF (0.0-6.0) H 10/05/17 Unknown Urine RBC (Auto) 120.0 /HPF (0.0-6.0) 10/05/17 Unknown Urine Mucus Few /HPF 10/05/17 Unknown
--- NOTE | 2017-10-22 13:33 | Discharge Summary ---
Providers - Providers Date of Admission: 10/05/17 05:13 Date of discharge: 10/22/17 Attending physician: ESTEFANIA PITTS 10/05/17 22:58 Consult to Mental Health [CONS] Routine Reason For Exam: behavioral disturbance Place consult to:: PINO Notified:: PINO 10/06/17 14:31 Consult to Physician [CONS] Routine Consulting Provider: JOSE J VALLE Reason For Exam: projectile vomiting, spitting out food and meds Place consult to:: Notified:: Phone number called:: [phone] Was contact made?: Yes If yes, spoke with:: CARLINE Time called:: 16:07 Comment:: SHANON 10/15/17 09:46 Physical Therapy Evaluation and Treat [CONS] Routine Comment: Reason For Exam: Debility 10/15/17 09:47 Occupational Therapy Evaluate and Treat [CONS] Routine Comment: Reason For Exam: Debility 10/15/17 18:16 Consult to Wound/ET Nurse [CONS] Urgent Reason For Exam: Skin tear Right arm Primary care physician: ARCHIE GRANDE Hospitalization Condition: Fair Hospital course: Patient is a 72-year-old man with history of dementia, GERD, peptic ulcer disorder and kidney stones who presented from the long-term with altered mental status and behavioral issues. He was noted to be aggressive. Wandering into other patient's rooms. Being aggressive with staff members. Refusing to take his medications. Therefore he was sent to [place] inpatient psychiatric unit. Unfortunately while he was there he was more agitated, refusing his medications, he was noted to have projectile vomiting, nonstop vomiting. He was admitted. He had metabolic encephaalopathy. Sepsis was ruled out. He was evaluated by Psych and placement to SNF Arrangements were made and he was discharged to [facility] on 10/22/17. Total time spent on discharge, 38 mins Disposition: [id number]/TX-03 SNF W [facility] CERT - Discharge Diagnoses (1) Acute metabolic encephalopathy Status: Acute (2) Dementia Status: Acute (3) SIRS (systemic inflammatory response syndrome) Status: Acute (4) Nausea and vomiting Status: Acute (5) UTI (urinary tract infection) Status: Acute Qualifiers: Urinary tract infection type: acute cystitis Hematuria presence: without hematuria Qualified Code(s): N30.00 - Acute cystitis without hematuria Core Measure Documentation - Palliative Care Palliative Care/ Comfort Measures: Not Applicable - Core Measures Any of the following diagnoses?: none Exam - Physical Exam Narrative exam: GEN APPEARANCE : Not in acute distress HEENT: Normocephalic, Atraumatic NECK : supple, no JVD LUNGS: Clear to auscultation bilaterally, no rales, no wheeze HEART: S1 and S2 regular, no murmurs, rubs or gallop, ABD: Soft, non tender, non distended, normal bowel sounds EXT: No edema, no clubbing, no cyanosis NEURO: Awake,alert, confused, - Constitutional Vitals: Temp Pulse Resp BP Pulse Ox 97.6 F 85 20 128/74 98 10/21/17 20:07 10/21/17 20:07 10/21/17 22:00 10/21/17 20:07 10/21/17 20:07 Plan Activity: advance as tolerated Diet: regular Additional Instructions: 1.Follow up with Physician at [facility] in 3-5 days. Follow up with: PRIMARY CARE, [Referring] - 3-5 Days Prescriptions: Mirtazapine [Remeron] 15 mg PO QHS #30 tablet risperiDONE [RisperDAL] 0.5 mg PO QAM #30 tablet risperiDONE [RisperDAL] 1 mg PO QHS #30 tablet
[2017-10-22 15:56] VITALS: BP 122/75
== END 2017-10-22 18:20 | DRG 884 ==
LOC: ED 20:34 → 2B-ACE 10-05 05:13
PROVIDERS: ADMIT Internal Medicine; ATTEND Internal Medicine
DX: F03.91 Unspecified dementia, unspecified severity, with behavioral disturbance (principal); G93.41 Metabolic encephalopathy; R53.2 Functional quadriplegia; R65.10 Systemic inflammatory response syndrome (SIRS) of non-infectious origin without acute organ dysfunction; K80.80 Other cholelithiasis without obstruction; K21.9 Gastro-esophageal reflux disease without esophagitis; E87.6 Hypokalemia; Z87.442 Personal history of urinary calculi; Z79.899 Other long term (current) drug therapy; Z87.11 Personal history of peptic ulcer disease
CPT/HCPCS: 36415; 71010; 71260; 74000; 74177; 80048; 80053; 81001; 82140; 82550; 82553; 82962; 83690; 84484; 85007; 85025; 85027; 87040; 87086; 96365; 96372; C9113; G8978-GP; G8979-GP; J1630; J1650; J2060; J2543; J7030; J7050; Q9967